=== PATIENT | male | born 1930 | race Caucasian/White ===

== ENCOUNTER 2017-08-28 11:04 | Emergency (ER) | payer MEDICARE ==
--- OUTSIDE RECORDS SUMMARY | 2017-08-28 11:18 | XMS REPORT ---
:1930 External Reference #:[id number] Author Organization [facility] Address [address] [address] Phone [phone] Care Team Providers Name Role Phone Lance Rubi MD Primary Care Physician Unavailable Payers Type Date Identification Numbers Payment Subscriber Provider Health Maintenance Effective: Policy Number: Medicare Blue Zane Phipps ([facility]) 09/03/2013 [id number] o Expires: 09/02/2014 Group Number: [id number] [address] [address] PayID: [id number] DALIA Martinez [id number] Health Maintenance Expires: Policy Number: [facility] Medicare Zane Phipps (O) 09/02/2016 [id number] Richardson Sanders Group Number: [id number] [address] [address] PayID: [id number] [place] [address] Medigap Part B Effective: 03/03/1994 Policy Number: Medicare Donald E Denman [id number] Expires: 09/03/2013 PayID: [id number] [address] [place] [address] Medigap Part B Effective: 09/03/2012 Policy Number: [facility] Zane Sanders [id number] Expires: 09/03/2013 PayID: [id number] [address] [address] DALIA Martinez [address] Medigap Part B Expires: 03/08/2008 Policy Number: [employer] Zane De Los Santos [id number] Marilyn Group Number: [id number] [address] PayID: [id number] [place] [address] Medigap Part B Effective: 03/09/2008 Policy Number: [facility] Zane Sanders [id number] Expires: 09/02/2012 PayID: [id number] [address] [address] DALIA Martinez [address] Medigap Part B Effective: 09/03/2016 Policy Number: [employer] Zane Sanders [id number] Group Number: [id number] [address] PayID: [id number] [place] [address] Problems Date Description Provider Status Onset: 06/16/2011 Benign essential hypertension Philip Lance M.D. Active Onset: 01/22/2012 Mitral valve disorder Philip Lance M.D. Active Onset: 01/22/2012 Aortic valve disorder Philip Lance M.D. Active Onset: 01/22/2012 Pure hypercholesterolemia Philip Lance M.D. Active Onset: 09/25/2012 Old myocardial infarction Philip Lance M.D. 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 Family History Date Family Member(s) Problem(s) Comments General Stroke : (age 88 Years) Father due to OR : (age 95 Years) Mother due to Hypertension Social History Type Date Description Comments Marital Status Lives With Alone Occupation Retired ETOH Use Consumes liquor once daily Smoking Patient has never smoked Recreational Drug Use Never Used Drugs Daily Caffeine Consumes on average 3 cups of regular coffee per day Daily Caffeine consumes chocolate occasionally Exercise Type/Frequency Exercises sporadically General Hx Text Allergies, Adverse Reactions, Alerts Date Description Reaction Status Severity Comments 02/20/2003 Codeine Upset Stomach active Moderate causes upset stomach 02/09/2009 Atenolol psoriasis active 04/09/2015 Cartia XT Constipation active Moderate Medications Medication Date Status Form Strength Qnty SIG Indications Ordering Provider Torsemide 08/02 Active Tablets 20mg 30tab 1/2 tab s twice a F. day (in am Casi, and qnoon) Maykel Blood Pressure 11/27 Active Misc 1unit for upper Philip Monitor s arm. F. Inflate dispense 1 Casi as Maykel directed Potassium Chloride 10/27 Active Tablets 20Meq 45tab 1 tablet Philip ER s every F. other day Maykel Lance Carvedilol 03/29 Active Tablets 3.125mg 90tab 1/2 tab by s mouth F. twice a eFrminuser, day Cheli.DAiram Fish Oil OTC 07/30 Active Capsules 1000mg [address] Jahaira Lance M.D. Tylenol 8 Hour 08/17 Active Tablets 500mg 1tabs 1 to 2 po ER qhs prn Jahaira Lance M.D. Aspirin 81 Active Tablets 81mg [address] Ordering Provider Clopidogrel Active Tablets 75mg 90tab 1 by mouth Valerie Bisulfate s every day Maykel Grant Multi Vitamin Active Tablets 1 po qd Unknown Daily Atorvastatin Active Tablets 10mg 45tab /2 by Philip Calcium s mouth F. every day Maykel Lance Metformin HCL Active Tablets 500mg 1 by mouth Unknown 0000 twice a day Amlodipine Active Tablets 2.5mg 270ta 1 tablet Philip Besylate bs daily F. (hold as Casi, Maykel ) Furosemide 08/02 Hx Tablets 20mg 1 tab by mouth as F. - directed Mauser, 08/02 as needed M.D. for weight of 186lbs or more Furosemide 01/30 Hx Tablets 20mg 30tab 1 tab by s mouth as F. - directed Mauser, 08/02 as needed M.D. for weight of 186lbs or more Coq10 07/04 Hx Capsules 200mg 90cap 1 by mouth E78.5 Qutaybeh s every day S. - ( pt does Nicoleydah 08/13 not take) , .D. Aldactone 06/29 Hx Tablets 25mg 90tab 1 by mouth s every day F. - Mauser, 11/03 M.D. Eplerenone 03/29 Hx Tablets 25mg 100ta 1 by mouth bs every day F. - Mauser, 06/29 M.D. Diltiazem CD 03/10 Hx Caps ER 120mg 200ca 1 by mouth 24HR ps twice a F. - day user, 03/29 (stopped M.D. taking 03/19/15) Spironolactone 03/01 Hx Tablets 25mg 30tab 1 by mouth s every day F. - Mauser, 03/29 M.D. Diltiazem HCL ER 01/04 Hx Caps ER 120mg 100ca 1 cap po 24HR ps daily - F. - decreased Mauser, 03/1001/28/15 M.D. Lipitor 07/22 Hx Tablets 10mg 90tab 1 by mouth s every F. - night at Mauser, 07/27 bedtime M.D. Eplerenone 06/10 Hx Tablets 25mg 100ta 1 tablet bs po daily F. - Mauser, 03/01 M.D. Oxygen 03/29 Hx Misc Discontinu 799.02 e 2 l nc F. - at bedtime Mauser, 01/27 M.D. Eplerenone 01/19 Hx Tablets 25mg 30tab take 09/04 s tablet by F. - mouth Mauser, 06/10 daily M.D. replaces hctz Klor-Con M20 01/08 Hx Tablets 20Meq 30tab 1 tab by ER s mouth on F. - odd days Mauser, 04/03 M.D. /2014 Oxygen 12/31 Hx Misc 2L NC use 799.02 Overnight nightly [place], - with nasal M.D. 03/29 cannula secondary to hypoxemia >19 minutes oxygen saturation <90% during sleep, lowest 81% Hydrochlorothiazid 12/31 Hx Tablets 25mg 30tab Take 1 tab 401.1 s po daily . - user, 01/19.D. Carvedilol 12/15 Hx Tablets 3.125mg 180ta take 1 tab 786.05 bs by mouth F. - twice a Mauser, 01/27 day M.D. Diltiazem CD 11/20 Hx Caps ER 120mg 100ca 1 by mouth 24HR ps every day F. - Mauser, 01/04.D. Diltiazem CD 06/25 Hx Caps ER 120mg 200ca 2 po qd 24HR ps . - Mauser, 11/20.D. Crestor 09/25 Hx Tablets 5mg 45tab 1 by mouth s every day F. - on emmie, . . Crestor 07/15 Hx Tablets 5mg 30tab 1 po qd s F. - Mauser, 09/25.D. Crestor 07/02 Hx Tablets 20mg 30tab 1 po qd s F. - Mauser, 07/15.D. Diovan 01/21 Hx Tablets 80mg 30tab 1 po qd s F. - Mauser, 01/21.. Diovan 01/21 Hx Tablets 80mg 100ta 1/2 po qd bs F. - Mauser, 06/12.. Aldactone 09/14 Hx Tablets 25mg 45tab 1/2 po s qd(on F. - emmie, 12/3111/21/13) .D. Diltiazem CD 08/25 Hx Caps ER 120mg 270ca 3 po qd 24HR ps F. - Mauser, 06/25.D. Diovan 08/09 Hx Tablets 80mg 30tab 1 po qd s F. - Mauser, 01/21 M.D. Altace 06/21 Hx Capsules 5mg 30cap 1 po qd s F. - Mauser, 08/09 M.D. Diltiazem CD 06/07 Hx Caps ER 120mg 200ca 2 po qd 24HR ps F. - Mauser, 08/25 M.D. Diovan 05/16 Hx Tablets 80mg 90tab 1 po qd s F. - Mauser, 06/21 M.D. Norvasc 05/05 Hx Tablets 2.5mg 90tab 1 po qd s F. - Mauser, 06/07 M.D. Crestor 05/05 Hx Tablets 10mg 45tab / po qd s F. - Mauser, 07/02 M.D. Altace 04/25 Hx Capsules 5mg 30cap 1 po qd s F. - Mauser, 05/16 M.D. Crestor 08/18 Hx Tablets 10mg 30tab 1 po qd s F. - Mauser, 05/05 M.D. [facility] 01/26 Hx Tablets 10mg 90tab 09/06 tab s qd(2.5mg) F. - Mauser, 05/05 M.D. Plavix 09/06 Hx Tablets 75mg 1 po qod untial F. - 09/18/09 Mauser, 05/05 and M.D. discontinu e Lipitor 02/09 Hx Tablets 20mg 90tab one tab po s qhs F. - Mauser, 08/18 M.D. Norvasc 02/09 Hx Tablets 5mg 180ta 2 po qd bs F. - Mauser, 01/26 M.D. Norvasc 01/26 Hx Tablets 5mg 90tab 1 po qd s F. - Mauser, 02/09 M.D. Norvasc 11/27 Hx Tablets 2.5mg 30tab 1 po qd s F. - Mauser, 11/27 M.D. Vitamin 11/27 Hx one po qd F. - Mauser, 11/15 M.D. /2014 Altace 11/27 Hx Capsules 10mg 30cap /2 by s mouth F. - every Mauser, 04/25 day(5 mg) M.D. /2010 Norvasc 11/27 Hx Tablets 2.5mg 180ta 2 po qd bs F. - Mauser, 01/26 M.D. Atenolol 11/27 Hx Tablets 25mg 1 po qod until F. - 12/15/08 Mauser, 12/25 and then M.D. /2008 discontinu e Altace 08/07 Hx Capsules 2.5mg 90cap 1 po qd s F. - Mauser, 11/27 M.D. Plavix 05/22 Hx Tablets 75mg 30tab 1 PO qd s F. - Mauser, 09/06 M.D. Altace 05/22 Hx Capsules 2.5mg 90cap 1 po qd s F. - Mauser, 05/25 M.D. Nitro-Dur 05/13 Hx Patches 0.2mg/HR 30uni 1 patch qd 24HR ts F. - Mauser, 05/22 on .D. in the am, off in the pm Altace 01/09 Hx Capsules 10mg 90cap 1 po qd s F. - Mauser, 05/22 M.D. Norvasc 01/09 Hx Tablets 2.5mg 90tab 1 po qd s F. - Mauser, 08/07 M.D. Lipitor 11/26 Hx Tablets 80mg 90tab 1 po qhs s F. - Mauser, 02/09 M.D. /2008 Lipitor 01/15 Hx Tablets 40mg 30tab 1 PO qd s F. - Mauser, 11/26 M.D. /2008 Zetia 01/15 Hx Tablets 10mg 90tab 1 po qd Jahaira Lance, 09/27 M.D. Lipitor 11/13 Hx Tablets 80mg 90tab 1 po qd Jahaira Lance, 01/15 M.D. Norvasc 07/12 Hx Tablets 10mg 1 po qd Jahaira Lance, 07/12 M.D. Norvasc 07/12 Hx Tablets 5mg 90tab 1 po qd Jahaira Lance, 01/09 M.D. Atenolol 07/12 Hx Tablets 25mg 180ta 1 po qd Jahaira Lance, 11/27 M.D. Aldactone 06/14 Hx Tablets 25mg 90tab 1 po qd Jahaira Lance, 05/25 M.D. KCL 06/14 Hx Tablets 20Meq 60tab 2 po qd Jahaira Lance, 05/25 M.D. KCL 12/06 Hx Tablets 20Meq 180ta 2 po qd Jahaira Lance, 06/14 M.D. KCL 11/13 Hx Tablets 40meq 1 po bid Jahaira Lance, 12/06 M.D. Lipitor 09/22 Hx Tablets 40mg 90tab 1 po qd Jahaira Lance, 11/13 M.D. Vytorin 07/18 Hx Tablets 10mg;40 mg 90tab 1 po qd Jahaira Lance, 09/22 M.D. KCL 06/20 Hx Tablets 40Meq 180ta 1 po qd Jahaira Lance, 11/13 M.D. Lipitor 05/05 Hx Tablets 80mg 30tab 1 po qd s Jahaira Lance, 07/18 M.D. KCL 05/05 Hx Tablets 20Meq 30tab one po qd s F. - Mauser, 06/20 M.D. /2004 Triamterene & 10/15 Hx Capsules 25mg;37.5 90cap 1 po qd HCTZ /2003 mg s F. - Ericr, 07/12 M.D. /2005 HCTZ 02/20 Hx 25mg 30uni ts Jahaira Lance, 02/14 M.D. Aspirin - Buffered 02/19 Hx Tablets 325mg 100ta 09/04 po qd bs FAiram Lance, 10/29 M.D. /2013 Altace 02/19 Hx 20mg 30uni one qd migdalia Lance, 01/09 M.D. /2007 Atenolol 02/19 Hx Tablets 25mg 90tab take one s tablet F. - daily Casi, 07/12 M.D. /2005 HCTZ 02/19 Hx 25mg 90uni 1 PO qd FAiram Lance, 02/20 M.D. Norvasc 02/19 Hx Tablets 5mg 30tab one qd s FAiram - Casi, 07/12 M.D. Lipitor 02/19 Hx Tablets 40mg 30tab one qd s FAiram Lance, 05/05 M.D. Diuretic pt unsure 02/19 Hx 37.5/25 30uni one qd Philip name of /2002 migdalia Lance, 04/22 M.D. /2003 Tylenol 8 Hour Hx Tablets 650mg 1tabs prn Unknown /0000 ER - 08/17 Vitamin D-1000 Hx Tablets 1000Unit 90tab 1 po qd Unknown /0000 s - 08/31 ` Hx Ointment 0.05% 50gm apply tid Unknown /0000 for - psoriasis 06/25 prn /2012 Brilinta Hx Tablets 90mg 60tab 1 tab by Other / s mouth Ordering - twice a Provider /2013 Gabapentin Hx Capsules 100mg 90cap 1 po qhs Unknown /0000 s prn - 04/03 Cartia XT Hx Caps ER 120mg 1 cap po Unknown /0000 24HR b.i.d - 01/27 Potassium Chloride Hx Tablets 20Meq 1 tablet Philip /0000 ER every F. - other day Mauser, 10/27 M.D. Medications Administered in Office Medication Date Status Form Strength Qnty SIG Indications Ordering Provider Inj, Administered Injection Nitin S. Regadenoson, 016 Oquendo, DO 0.1 MG FACC Inj, Administered Injection Marj Gallegos, Regadenoson, 016 PA 0.1 MG Technetium TC Administered Injection Nitin S. 99M 016 Oquendo, DO Tetrofosmin, FACC Per Unit Dose Up To 40 Millicuries Technetium TC Administered Injection Marj Gallegos, 99M 016 PA Tetrofosmin, Per Unit Dose Up To 40 Millicuries Vital Signs Date Vital Result Comment 08/20/2017 Height 73 inches 6'1" Weight 190.25 lb with boots Heart Rate 86 /min BP Systolic Sitting 116 mmHg LA reg cuff BP Diastolic Sitting 76 mmHg LA reg cuff BMI (Body Mass Index) 25.1 kg/m2 Ejection Fraction 40%-45% echo 06/12/17 08/02/2017 Height 73 inches 6'1" Weight 192.00 lb with shoes Heart Rate 94 /min BP Systolic Sitting 114 mmHg LA reg cuff BP Diastolic Sitting 78 mmHg LA reg cuff O2 % BldC Oximetry 94 % Sp02 at room air BMI (Body Mass Index) 25.3 kg/m2 Ejection Fraction 40%-45% echo 06/12/27 05/15/2017 Height 73 inches 6'1" Weight 191.00 lb with shoes Heart Rate 64 /min BP Systolic Sitting 166 mmHg LA reg cuff BP Diastolic Sitting 92 mmHg LA reg cuff BP Systolic Standing 160 mmHg LA reg cuff BP Diastolic Standing 88 mmHg LA reg cuff BP Systolic Lying Down 138 mmHg repeat left arm sitting. BP Diastolic Lying Down 76 mmHg repeat left arm sitting. BMI (Body Mass Index) 25.2 kg/m2 Ejection Fraction 40%-45% Florentin 12/29/16 01/30/2017 Heart Rate 74 /min BP Systolic Sitting 138 mmHg LA, regular BP Diastolic Sitting 78 mmHg LA, regular 01/26/2017 Height 69.5 inches 5'9.50" Weight 199.00 lb with shoes Heart Rate 90 /min BP Systolic Sitting 164 mmHg Lue reg cuff BP Diastolic Sitting 100 mmHg Lue reg cuff BP Systolic Standing 170 mmHg Lue reg cuf BP Diastolic Standing 110 mmHg Lue reg cuf Respiratory Rate 17 /min BMI (Body Mass Index) 29.0 kg/m2 Ejection Fraction 55-60% date 07/14/2016 ECHO 01/09/2017 Height 69.5 inches 5'9.50" Weight 196.00 lb w/shoes Heart Rate 76 /min BP Systolic Sitting 134 mmHg LA reg cuff BP Diastolic Sitting 60 mmHg LA reg cuff BMI (Body Mass Index) 28.5 kg/m2 Ejection Fraction 40-45% Florentin 12/29/16 12/07/2016 Height 69.5 inches 5'9.50" Heart Rate 82 /min 76 home unit BP Systolic 120 mmHg LA, reg BP Diastolic 74 mmHg LA, reg BP Systolic Sitting 128 mmHg Ra, reg BP Diastolic Sitting 76 mmHg Ra, reg BP Systolic Recheck 128 mmHg home unit BP Diastolic Recheck 68 mmHg home unit 11/27/2016 Height 69.5 inches 5'9.50" Weight 188.75 lb w/shoes Heart Rate 72 /min 69 BP Systolic 148 mmHg home unit BP Diastolic 87 mmHg home unit BP Systolic Sitting 120 mmHg LA reg cuff BP Diastolic Sitting 74 mmHg LA reg cuff BP Systolic Standing 140 mmHg LA reg cuff BP Diastolic Standing 70 mmHg LA reg cuff BMI (Body Mass Index) 27.5 kg/m2 Ejection Fraction 55-60% Echo 07/14/16 07/19/2016 Height 69.5 inches 5'9.50" Weight 194.00 lb with shoes Heart Rate 68 /min BP Systolic Sitting 156 mmHg LA reg cuff BP Diastolic Sitting 86 mmHg LA reg cuff BMI (Body Mass Index) 28.2 kg/m2 Ejection Fraction 55%-60% echo 07/14/16 07/04/2016 Height 69.5 inches 5'9.50" Weight 196.00 lb Heart Rate 64 /min reg BP Systolic Sitting 180 mmHg after relaxation BP Diastolic Sitting 84 mmHg after relaxation BMI (Body Mass Index) 28.5 kg/m2 Ejection Fraction 35% stress test 12/31/15 02/07/2016 Height 69.5 inches 5'9.50" Weight 197.50 lb with shoes Heart Rate 68 /min BP Systolic Sitting 128 mmHg Ra reg cuff BP Diastolic Sitting 62 mmHg Ra reg cuff BP Systolic Standing 126 mmHg Ra reg cuff BP Diastolic Standing 64 mmHg Ra reg cuff BMI (Body Mass Index) 28.7 kg/m2 Ejection Fraction 45- 50% echo 12/13/2015 Heart Rate 64 /min BP Systolic 142 mmHg Ra, regular, sit BP Diastolic 74 mmHg Ra, regular, sit BP Systolic Sitting 148 mmHg LA, regular BP Diastolic Sitting 70 mmHg LA, regular BP Systolic Standing 138 mmHg Ra, regular BP Diastolic Standing 76 mmHg Ra, regular BP Systolic Lying Down 143 mmHg Ra, regular, home unit BP Diastolic Lying Down 79 mmHg Ra, regular, home unit 12/06/2015 Height 69.5 inches 5'9.50" Weight 208.38 lb with shoes Heart Rate 66 /min BP Systolic Sitting 122 mmHg LA reg cuff BP Diastolic Sitting 68 mmHg LA reg cuff BP Systolic Standing 134 mmHg LA reg cuff BP Diastolic Standing 72 mmHg LA reg cuff Respiratory Rate 16 /min BMI (Body Mass Index) 30.3 kg/m2 Ejection Fraction 45-50% 11/15/15 11/04/2015 Height 69.5 inches 5'9.50" Weight 207.00 lb with shoes Heart Rate 64 /min BP Systolic Sitting 118 mmHg LA reg cuff BP Diastolic Sitting 74 mmHg LA reg cuff Respiratory Rate 16 /min BMI (Body Mass Index) 30.1 kg/m2 Ejection Fraction 55-60% date 01/21/15 ECHO 07/27/2015 Height 69.5 inches 5'9.50" Weight 199.00 lb Heart Rate 76 /min BP Systolic Sitting 124 mmHg BP Diastolic Sitting 76 mmHg Respiratory Rate 20 /min BMI (Body Mass Index) 29.0 kg/m2 05/03/2015 Height 69.5 inches 5'9.50" Weight 199.50 lb Heart Rate 64 /min BP Systolic Sitting 140 mmHg BP Diastolic Sitting 78 mmHg Respiratory Rate 24 /min BMI (Body Mass Index) 29.0 kg/m2 04/28/2015 Height 69.5 inches 5'9.50" Weight 199.50 lb w/ shoes Heart Rate 66 /min BP Systolic Sitting 154 mmHg LA, reg BP Diastolic Sitting 80 mmHg LA, reg BP Systolic Standing 142 mmHg la sit repeat BP Diastolic Standing 78 mmHg la sit repeat BMI (Body Mass Index) 29.0 kg/m2 Ejection Fraction 55-60% 01/21/15 ECHO 04/09/2015 Height 69.5 inches 5'9.50" Weight 198.00 lb Heart Rate 64 /min BP Systolic Sitting 122 mmHg BP Diastolic Sitting 64 mmHg Respiratory Rate 16 /min BMI (Body Mass Index) 28.8 kg/m2 04/02/2015 Height 69.5 inches 5'9.50" Weight 198.00 lb Heart Rate 68 /min BP Systolic 144 mmHg LA Reg BP Diastolic 80 mmHg LA Reg BMI (Body Mass Index) 28.8 kg/m2 03/29/2015 Height 69.5 inches 5'9.50" Weight 199.75 lb Heart Rate 78 /min BP Systolic 154 mmHg Ra, sit BP Diastolic 96 mmHg Ra, sit BP Systolic Sitting 158 mmHg LA BP Diastolic Sitting 100 mmHg LA BP Systolic Standing 168 mmHg LA BP Diastolic Standing 108 mmHg LA BMI (Body Mass Index) 29.1 kg/m2 03/10/2015 Height 69.5 inches 5'9.50" Weight 201.00 lb w/ shoes Heart Rate 70 /min reg BP Systolic Sitting 134 mmHg Lue, reg cuff BP Diastolic Sitting 86 mmHg Lue, reg cuff Respiratory Rate 18 /min BMI (Body Mass Index) 29.3 kg/m2 Ejection Fraction 55-60% as of echo 01/28/2015 Height 69.5 inches 5'9.50" Weight 200.25 lb with shoes Heart Rate 70 /min BP Systolic Sitting 130 mmHg LA reg ucff BP Diastolic Sitting 70 mmHg LA reg ucff Respiratory Rate 16 /min BMI (Body Mass Index) 29.1 kg/m2 Ejection Fraction 55-60% date 01/21/15 01/11/2015 Height 69.5 inches 5'9.50" Weight 202.00 lb w/ shoes Heart Rate 58 /min BP Systolic Sitting 168 mmHg LA, reg BP Diastolic Sitting 90 mmHg LA, reg BP Systolic Standing 154 mmHg LA, reg BP Diastolic Standing 90 mmHg LA, reg BMI (Body Mass Index) 29.4 kg/m2 Ejection Fraction 55-60% 09/04/14 echo 11/16/2014 Height 69.5 inches 5'9.50" Weight 206.00 lb Heart Rate 60 /min BP Systolic Sitting 166 mmHg LA, reg BP Diastolic Sitting 88 mmHg LA, reg BMI (Body Mass Index) 30.0 kg/m2 08/31/2014 Height 69.5 inches 5'9.50" Weight 201.00 lb Heart Rate 60 /min BP Systolic Sitting 150 mmHg BP Diastolic Sitting 70 mmHg Pain Level 0 BMI (Body Mass Index) 29.3 kg/m2 06/10/2014 Height 69.5 inches 5'9.50" Weight 203.00 lb w/work boots on Heart Rate 62 /min BP Systolic 148 mmHg repeat sitting BP Diastolic 76 mmHg repeat sitting BP Systolic Sitting 170 mmHg LA reg cuff BP Diastolic Sitting 78 mmHg LA reg cuff Respiratory Rate 18 /min BMI (Body Mass Index) 29.5 kg/m2 02/10/2014 Height 69.5 inches 5'9.50" Weight 201.00 lb Heart Rate 72 /min BP Systolic Sitting 156 mmHg LA reg cuff BP Diastolic Sitting 90 mmHg LA reg cuff BP Systolic Recheck 134 mmHg LA reg cuff BP Diastolic Recheck 84 mmHg LA reg cuff Respiratory Rate 16 /min BMI (Body Mass Index) 29.3 kg/m2 12/31/2013 Height 69.5 inches 5'9.50" Weight 202.00 lb Heart Rate 60 /min BP Systolic Sitting 142 mmHg BP Diastolic Sitting 76 mmHg BMI (Body Mass Index) 29.4 kg/m2 12/15/2013 Height 69.5 inches 5'9.50" Weight 197.75 lb BP Systolic 72 mmHg BP Systolic Sitting 152 mmHg Ra BP Diastolic Sitting 90 mmHg Ra BP Systolic Standing 148 mmHg Ra BP Diastolic Standing 90 mmHg Ra BMI (Body Mass Index) 28.8 kg/m2 10/29/2013 Height 73 inches 6'1" Weight 200.00 lb Heart Rate 88 /min BP Systolic Sitting 132 mmHg BP Diastolic Sitting 64 mmHg BMI (Body Mass Index) 26.4 kg/m2 08/04/2013 BP Systolic 154 mmHg BP Diastolic 92 mmHg 07/11/2013 Heart Rate 74 /min 76 on home unit BP Systolic 144 mmHg 145/79 on home unit BP Diastolic 78 mmHg 145/79 on home unit 06/25/2013 Height 73 inches 6'1" Weight 206.00 lb Heart Rate 68 /min BP Systolic Sitting 126 mmHg pulse 62 BP Diastolic Sitting 66 mmHg pulse 62 BP Systolic Standing 132 mmHg pulse 76 BP Diastolic Standing 70 mmHg pulse 76 BP Systolic Lying Down 126 mmHg pulse 56 BP Diastolic Lying Down 70 mmHg pulse 56 BMI (Body Mass Index) 27.2 kg/m2 11/04/2012 Height 73 inches 6'1" Weight 213.00 lb with coat and boots Heart Rate 82 /min BP Systolic 134 mmHg after walking in BP Diastolic 72 mmHg after walking in BP Systolic Sitting 138 mmHg after sitting 5 mins BP Diastolic Sitting 66 mmHg after sitting 5 mins BMI (Body Mass Index) 28.1 kg/m2 09/25/2012 Height 73 inches 6'1" Weight 207.00 lb Heart Rate 60 /min BP Systolic 132 mmHg BP Diastolic 64 mmHg Respiratory Rate 16 /min BMI (Body Mass Index) 27.3 kg/m2 06/12/2012 Height 73 inches 6'1" Weight 207.00 lb Heart Rate 64 /min BP Systolic 108 mmHg BP Diastolic 60 mmHg BMI (Body Mass Index) 27.3 kg/m2 02/06/2012 Height 73 inches 6'1" Weight 208.38 lb Heart Rate 76 /min Regular BP Systolic Sitting 118 mmHg BP Diastolic Sitting 64 mmHg BMI (Body Mass Index) 27.5 kg/m2 01/22/2012 Height 73 inches 6'1" Weight 207.00 lb Heart Rate 69 /min BP Systolic 110 mmHg BP Diastolic 60 mmHg Respiratory Rate 16 /min BMI (Body Mass Index) 27.3 kg/m2 08/17/2011 Height 73 inches 6'1" Weight 204.00 lb Heart Rate 82 /min BP Systolic Sitting 152 mmHg BP Diastolic Sitting 78 mmHg BMI (Body Mass Index) 26.9 kg/m2 05/05/2011 Height 73 inches 6'1" Weight 204.00 lb Heart Rate 58 /min BP Systolic Lying Down 152 mmHg BP Diastolic Lying Down 68 mmHg Respiratory Rate 20 /min BMI (Body Mass Index) 26.9 kg/m2 07/19/2010 Weight 206.00 lb Heart Rate 78 /min BP Systolic Sitting 130 mmHg 09/06/2009 Weight 209.00 lb Heart Rate 84 /min BP Systolic Sitting 120 mmHg BP Diastolic Sitting 64 mmHg Respiratory Rate 18 /min 05/07/2009 Height 73 inches 6'1" Weight 203.00 lb Heart Rate 72 /min BP Systolic Sitting 110 mmHg L BP Diastolic Sitting 60 mmHg L BMI (Body Mass Index) 26.8 kg/m2 03/12/2009 Height 73 inches 6'1" Weight 206.00 lb Heart Rate 78 /min BP Systolic Sitting 116 mmHg BP Diastolic Sitting 64 mmHg BMI (Body Mass Index) 27.2 kg/m2 02/09/2009 Height 73 inches 6'1" Weight 209.00 lb Heart Rate 68 /min BP Systolic Sitting 140 mmHg BP Diastolic Sitting 90 mmHg BMI (Body Mass Index) 27.6 kg/m2 12/25/2008 Height 73 inches 6'1" Weight 215.00 lb Heart Rate 80 /min reg BP Systolic Sitting 120 mmHg BP Diastolic Sitting 60 mmHg BMI (Body Mass Index) 28.4 kg/m2 11/27/2008 Height 73 inches 6'1" Weight 217.00 lb Heart Rate 53 /min BP Systolic Sitting 150 mmHg L home unit 151/85 BP Diastolic Sitting 79 mmHg L home unit 151/85 BMI (Body Mass Index) 28.6 kg/m2 08/07/2008 Height 73 inches 6'1" Weight 211.00 lb Heart Rate 60 /min BP Systolic Sitting 130 mmHg L BP Diastolic Sitting 70 mmHg L BMI (Body Mass Index) 27.8 kg/m2 05/22/2008 Height 73 inches 6'1" Weight 205.00 lb Heart Rate 62 /min BP Systolic Sitting 100 mmHg L BP Diastolic Sitting 60 mmHg L BMI (Body Mass Index) 27.0 kg/m2 2008 Height 73 inches 6'1" Weight 205.00 lb Heart Rate 53 /min BP Systolic Sitting 130 mmHg BP Diastolic Sitting 70 mmHg BP Systolic Standing 112 mmHg BP Diastolic Standing 66 mmHg BMI (Body Mass Index) 27.0 kg/m2 01/10/2008 Height 73 inches 6'1" Weight 207.00 lb Heart Rate 51 /min BP Systolic Sitting 104 mmHg BP Diastolic Sitting 60 mmHg Respiratory Rate 16 /min BMI (Body Mass Index) 27.3 kg/m2 12/31/2006 Height 73 inches 6'1" Weight 201.00 lb Heart Rate 62 /min BP Systolic Sitting 110 mmHg BP Diastolic Sitting 60 mmHg BP Systolic Standing 110 mmHg BP Diastolic Standing 60 mmHg BMI (Body Mass Index) 26.5 kg/m2 08/15/2006 Height 73 inches 6'1" Weight 196.00 lb Heart Rate 50 /min BP Systolic Sitting 132 mmHg BP Diastolic Sitting 70 mmHg BP Systolic Standing 120 mmHg BP Diastolic Standing 70 mmHg BMI (Body Mass Index) 25.9 kg/m2 07/12/2006 Height 73 inches 6'1" Weight 186.00 lb Heart Rate 64 /min Reg BP Systolic Sitting 100 mmHg BP Diastolic Sitting 70 mmHg BP Systolic Standing 110 mmHg BP Diastolic Standing 74 mmHg BMI (Body Mass Index) 24.5 kg/m2 06/13/2006 Height 73 inches 6'1" Weight 196.00 lb Heart Rate 48 /min BP Systolic Sitting 124 mmHg R BP Diastolic Sitting 60 mmHg R BP Systolic Standing 130 mmHg R BP Diastolic Standing 70 mmHg R BMI (Body Mass Index) 25.9 kg/m2 04/13/2005 Height 73 inches 6'1" Weight 197.00 lb Heart Rate 50 /min BP Systolic Sitting 104 mmHg BP Diastolic Sitting 56 mmHg BP Systolic Standing 100 mmHg BP Diastolic Standing 60 mmHg BMI (Body Mass Index) 26.0 kg/m2 04/22/2004 Height 73 inches 6'1" Weight 203.00 lb Heart Rate 57 /min BP Systolic Sitting 136 mmHg BP Diastolic Sitting 64 mmHg BP Systolic Standing 124 mmHg BP Diastolic Standing 60 mmHg BMI (Body Mass Index) 26.8 kg/m2 02/20/2003 Height 63 inches Weight 198.00 lb Heart Rate 60 /min BP Systolic Sitting 130 mmHg BP Diastolic Sitting 70 mmHg BP Systolic Standing 120 mmHg BP Diastolic Standing 70 mmHg BMI (Body Mass Index) 35.1 kg/m2 Results Test Date Test Result H/L Range Note CBC Auto Diff 08/02/2017 White Blood Count 9.8 10^3/uL 3.5-10.8 Red Blood Count 4.57 10^6/uL 4.0-5.4 Hemoglobin 14.5 g/dL 14.0-18.0 Hematocrit 44 % 42-52 Mean Corpuscular Volume 95 fL High 80-94 Mean Corpuscular Hemoglobin 32 pg High 27-31 Mean Corpuscular HGB Conc 33 g/dL 31-36 Red Cell Distribution Width 14 % 10.5-15 Platelet Count 201 10^3/uL 150-450 Mean Platelet Volume 10 um3 7.4-10.4 Abs Neutrophils 7.6 10^3/uL 1.5-7.7 Abs Lymphocytes 1.2 10^3/uL 1.0-4.8 Abs Monocytes 0.9 10^3/uL High 0-0.8 Abs Eosinophils 0.1 10^3/uL 0-0.6 Abs Basophils 0.1 10^3/uL 0-0.2 Abs Nucleated RBC 0 10^3/uL Granulocyte % 77.8 % 38-83 Lymphocyte % 12.3 % Low 25-47 Monocyte % 8.7 % 1-9 Eosinophil % 0.7 % 0-6 Basophil % 0.5 % 0-2 Nucleated Red Blood Cells % 0 Lipid Panel - [facility] 08/02/2017 Creatine Kinase(CK) 186 U/L 10-223 Comp Metabolic Panel 08/02/2017 Sodium 144 mmol/L 133-145 Potassium 3.8 mmol/L 3.5-5.0 Chloride 106 mmol/L 101-111 Co2 Carbon Dioxide 25 mmol/L 22-32 Anion Gap 13 mmol/L High 2-11 Glucose 114 mg/dL High 70-100 Blood Urea Nitrogen 39 mg/dL High 6-24 Creatinine 1.28 mg/dL High 0.67-1.17 BUN/Creatinine Ratio 30.5 High 8-20 Calcium 9.9 mg/dL 8.6-10.3 Total Protein 6.9 g/dL 6.4-8.9 Albumin 4.3 g/dL 3.2-5.2 Globulin 2.6 g/dL 2-4 Albumin/Globulin Ratio 1.7 1-3 Total Bilirubin 0.80 mg/dL 0.2-1.0 Alkaline Phosphatase 97 U/L 34-104 Alt 67 U/L High 7-52 Ast 36 U/L 13-39 Egfr Non- 53.0 >60 Egfr 68.2 >60 1 Lipid Profile (Trig/Chol/HDL) 08/02/2017 Triglycerides 145 mg/dL 2 Cholesterol 143 mg/dL 3 HDL Cholesterol 43.6 mg/dL 4 LDL Cholesterol 70 mg/dL 5 Laboratory test finding 08/02/2017 B-Type Natriuretic Peptide BNP 1946 pg/ mL High 6 Magnesium 2.2 mg/dL 1.9-2.7 TSH (Thyroid Stim Horm) 3.06 mcIU/mL 0.34-5.60 Laboratory test finding 01/30/2017 B-Type Natriuretic 621 pg/mL High 7 Peptide BNP Basic Metabolic Panel 01/30/2017 Sodium 139 mmol/L 133-145 Potassium 4.1 mmol/L 3.5-5.0 Chloride 104 mmol/L 101-111 Co2 Carbon Dioxide 28 mmol/L 22-32 Anion Gap 7 mmol/L 2-11 Glucose 131 mg/dL High 70-100 Blood Urea Nitrogen 21 mg/dL 6-24 Creatinine 1.05 mg/dL 0.67-1.17 BUN/Creatinine Ratio 20.0 8-20 Calcium 9.1 mg/dL 8.6-10.3 Egfr Non- 66.8 >60 Egfr 85.9 >60 8 Laboratory test finding 01/30/2017 Magnesium 1.9 mg/dL 1.9-2.7 9 CBC Auto Diff 01/30/2017 White Blood Count 8.4 10^3/uL 3.5-10.8 Red Blood Count 4.36 10^6/uL 4.0-5.4 Hemoglobin 13.4 g/dL Low 14.0-18.0 Hematocrit 41 % Low 42-52 Mean Corpuscular Volume 94 fL 80-94 Mean Corpuscular Hemoglobin 31 pg 27-31 Mean Corpuscular HGB Conc 33 g/dL 31-36 Red Cell Distribution Width 14 % 10.5-15 Platelet Count 205 10^3/uL 150-450 Mean Platelet Volume 9 um3 7.4-10.4 Abs Neutrophils 5.7 10^3/uL 1.5-7.7 Abs Lymphocytes 1.5 10^3/uL 1.0-4.8 Abs Monocytes 0.9 10^3/uL High 0-0.8 Abs Eosinophils 0.2 10^3/uL 0-0.6 Abs Basophils 0.1 10^3/uL 0-0.2 Abs Nucleated RBC 0 10^3/uL Granulocyte % 67.9 % 38-83 Lymphocyte % 17.8 % Low 25-47 Monocyte % 11.1 % High 1-9 Eosinophil % 2.0 % 0-6 Basophil % 1.2 % 0-2 Nucleated Red Blood Cells % 0 Lipid Panel - [facility] 02/08/2016 Creatine Kinase(CK) 96 U/L 10-223 10 Comp Metabolic Panel 02/08/2016 Sodium 139 mmol/L 133-145 Potassium 4.0 mmol/L 3.5-5.0 Chloride 103 mmol/L 101-111 Co2 Carbon Dioxide 29 mmol/L 22-32 Anion Gap 7 mmol/L 2-11 Glucose 114 mg/dL High 70-100 Blood Urea Nitrogen 17 mg/dL 6-24 Creatinine 1.02 mg/dL 0.67-1.17 BUN/Creatinine Ratio 16.7 8-20 Calcium 9.1 mg/dL 8.6-10.3 Total Protein 7.0 g/dL 6.4-8.9 Albumin 4.1 g/dL 3.2-5.2 Globulin 2.9 g/dL 2-4 Albumin/Globulin Ratio 1.4 1-3 Total Bilirubin 0.60 mg/dL 0.2-1.0 Alkaline Phosphatase 66 U/L 34-104 Alt 11 U/L 7-52 Ast 15 U/L 13-39 Egfr Non- 69.2 >60 Egfr 89.1 >60 11 Lipid Profile (Trig/Chol/HDL) 02/08/2016 Triglycerides 131 mg/dL 12 Cholesterol 146 mg/dL 13 HDL Cholesterol 44.2 mg/dL 14 LDL Cholesterol 76 mg/dL 15 Laboratory test finding 04/16/2015 Blood Urea Nitrogen BUN 22 mg/dL 6-24 TSH (Thyroid Stim Horm) 3.25 ?IU/mL 0.34-5.60 Creatinine 04/16/2015 Creatinine 1.15 mg/dL 0.67-1.17 Egfr Non- 60.3 >60 Egfr 77.5 >60 16 CBC Auto Diff 01/12/2015 White Blood Count 6.9 10^3/uL 4.8-10.8 Red Blood Count 4.19 10^6/uL 4.0-5.4 Hemoglobin 13.9 g/dL Low 14.0-18.0 Hematocrit 40 % Low 42-52 Mean Corpuscular Volume 96 fL High 80-94 Mean Corpuscular Hemoglobin 33 pg High 27-31 Mean Corpuscular HGB Conc 35 g/dL 31-36 Red Cell Distribution Width 13 % 10.5-15 Platelet Count 164 10^3/uL 150-450 Mean Platelet Volume 8 um3 7.4-10.4 Abs Neutrophils 5.0 10^3/uL 1.5-7.7 Abs Lymphocytes 1.0 10^3/uL 1.0-4.8 Abs Monocytes 0.7 10^3/uL 0-0.8 Abs Eosinophils 0.1 10^3/uL 0-0.6 Abs Basophils 0 10^3/uL 0-0.2 Abs Nucleated RBC 0 10^3/uL Granulocyte % 73.5 % 38-83 Lymphocyte % 14.5 % Low 25-47 Monocyte % 10.6 % High 1-9 Eosinophil % 0.8 % 0-6 Basophil % 0.6 % 0-2 Nucleated Red Blood Cells % 0 Comp Metabolic Panel 01/12/2015 Sodium 136 mmol/L 133-145 Potassium 4.2 mmol/L 3.5-5.0 Chloride 105 mmol/L 101-111 Co2 Carbon Dioxide 22 mmol/L 22-32 Anion Gap 9 mmol/L 2-11 Glucose 261 mg/dL High 70-100 Blood Urea Nitrogen 23 mg/dL 6-24 Creatinine 1.08 mg/dL 0.67-1.17 BUN/Creatinine Ratio 21.3 High 8-20 Calcium 9.0 mg/dL 8.6-10.3 Total Protein 6.5 g/dL 6.4-8.9 Albumin 3.9 g/dL 3.2-5.2 Globulin 2.6 g/dL 2-4 Albumin/Globulin Ratio 1.5 1-3 Total Bilirubin 0.50 mg/dL 0.2-1.0 Alkaline Phosphatase 67 U/L 34-104 Alt 30 U/L 7-52 Ast 20 U/L 13-39 Egfr Non- 65.0 >60 Egfr 83.6 >60 17 Vitamin B12 And Folate Serum 01/12/2015 Vitamin B12 546 pg/mL 180-914 18 Folic Acid (Folate) > 20.00 ng/mL >3.99 Laboratory test finding 01/12/2015 Creatine Kinase(CK) 102 U/L 10-223 B-Type Natriuretic Peptide BNP 176 pg/mL 19 Magnesium 2.0 mg/dL 1.9-2.7 Order 09/04/2014 Echocardiogram <pending> Basic Metabolic Panel 07/20/2014 Sodium 134 mmol/L 133-145 Potassium 4.3 mmol/L 3.5-5.0 20 Chloride 99 mmol/L Low 101-111 Co2 Carbon Dioxide 29 mmol/L 22-32 Anion Gap 6 mmol/L 2-11 Glucose 235 mg/dL High 70-100 Blood Urea Nitrogen 21 mg/dL 6-24 Creatinine 1.14 mg/dL 0.67-1.17 BUN/Creatinine Ratio 18.4 8-20 Calcium 9.1 mg/dL 8.6-10.3 Egfr Non- 61.1 >60 Egfr 78.5 >60 21 Laboratory test finding 07/06/2014 Magnesium 1.9 mg/dL 1.9-2.7 Basic Metabolic Panel 07/06/2014 Sodium 136 mmol/L 133-145 Potassium 3.7 mmol/L 3.5-5.0 Chloride 101 mmol/L 101-111 Co2 Carbon Dioxide 29 mmol/L 22-32 Anion Gap 6 mmol/L 2-11 Glucose 177 mg/dL High 70-100 Blood Urea Nitrogen 20 mg/dL 6-24 Creatinine 1.07 mg/dL 0.67-1.17 BUN/Creatinine Ratio 18.7 8-20 Calcium 9.3 mg/dL 8.6-10.3 Egfr Non- 65.7 >60 Egfr 84.5 >60 22 CBC Auto Diff 07/06/2014 White Blood Count 8.7 10^3/uL 4.8-10.8 Red Blood Count 4.31 10^6/uL 4.0-5.4 Hemoglobin 13.9 g/dL Low 14.0-18.0 Hematocrit 41 % Low 42-52 Mean Corpuscular Volume 95 fL High 80-94 Mean Corpuscular Hemoglobin 32 pg High 27-31 Mean Corpuscular HGB Conc 34 g/dL 31-36 Red Cell Distribution Width 14 % 10.5-15 Platelet Count 190 10^3/uL 150-450 Mean Platelet Volume 8 um3 7.4-10.4 Abs Neutrophils 6.4 10^3/uL 1.5-7.7 Abs Lymphocytes 1.2 10^3/uL 1.0-4.8 Abs Monocytes 0.9 10^3/uL High 0-0.8 Abs Eosinophils 0.1 10^3/uL 0-0.6 Abs Basophils 0 10^3/uL 0-0.2 Abs Nucleated RBC 0 10^3/uL Granulocyte % 73.5 % 38-83 Lymphocyte % 14.3 % Low 25-47 Monocyte % 10.5 % High 1-9 Eosinophil % 1.2 % 0-6 Basophil % 0.5 % 0-2 Nucleated Red Blood Cells % 0 Lipid Panel - [facility] 04/20/2014 Creatine Kinase 112 U/L 10-223 23, 24 Comp Metabolic Panel 04/20/2014 Sodium 139 mmol/L 133-145 23 Potassium 4.3 mmol/L 3.7-5.6 23 Chloride 104 mmol/L 101-111 23 Co2 Carbon Dioxide 30 mmol/L 22-32 23 Anion Gap 5 mmol/L 2-11 23 Glucose 137 mg/dL High 70-100 23 Blood Urea Nitrogen 16 mg/dL 6-24 23 Creatinine 1.17 mg/dL 0.67-1.17 23 BUN/Creatinine Ratio 13.7 8-20 23 Calcium 9.3 mg/dL 8.6-10.3 23 Total Protein 7.3 g/dL 6.4-8.9 23 Albumin 3.8 g/dL 3.2-5.2 23 Globulin 3.5 g/dL 2-4 23 Albumin/Globulin Ratio 1.1 1-3 23 Total Bilirubin 0.50 mg/dL 0.2-1.0 23 Alkaline Phosphatase 71 U/L 34-104 23 Alt 22 U/L 7-52 23 Ast 20 U/L 13-39 23 Egfr Non- 59.2 >60 23 Egfr 76.2 >60 23, 25 Lipid Profile (Trig/Chol/HDL) 04/20/2014 Triglycerides 169 mg/dL 23, 26 Cholesterol 169 mg/dL 23, 27 HDL Cholesterol 44.3 mg/dL 23, 28 LDL Cholesterol 91 mg/dL 23, 29 Basic Metabolic Panel 02/05/2014 Sodium 138 mmol/L 133-145 Potassium 4.1 mmol/L 3.7-5.6 Chloride 104 mmol/L 101-111 Co2 Carbon Dioxide 29 mmol/L 22-32 Anion Gap 5 mmol/L 2-11 Glucose 111 mg/dL High 70-100 Blood Urea Nitrogen 17 mg/dL 6-24 Creatinine 1.15 mg/dL 0.67-1.17 BUN/Creatinine Ratio 14.8 8-20 Calcium 9.3 mg/dL 8.6-10.3 Egfr Non- 60.6 >60 Egfr 77.9 >60 30 Basic Metabolic Panel 01/16/2014 Sodium 139 mmol/L 133-145 31 Potassium 3.5 mmol/L Low 3.7-5.6 31 Chloride 102 mmol/L 101-111 31 Co2 Carbon Dioxide 30 mmol/L 22-32 31 Anion Gap 7 mmol/L 2-11 31 Glucose 190 mg/dL High 70-100 31 Blood Urea Nitrogen 20 mg/dL 6-24 31 Creatinine 1.12 mg/dL 0.67-1.17 31 BUN/Creatinine Ratio 17.9 8-20 31 Calcium 8.7 mg/dL 8.6-10.3 31 Egfr Non- 62.5 >60 31 Egfr 80.3 >60 31, 32 Basic Metabolic Panel 01/08/2014 Sodium 138 mmol/L 133-145 Potassium 3.3 mmol/L Low 3.7-5.6 Chloride 102 mmol/L 101-111 Co2 Carbon Dioxide 29 mmol/L 22-32 Anion Gap 7 mmol/L 2-11 Glucose 126 mg/dL High 70-100 Blood Urea Nitrogen 18 mg/dL 6-24 Creatinine 1.10 mg/dL 0.67-1.17 BUN/Creatinine Ratio 16.4 8-20 Calcium 9.2 mg/dL 8.6-10.3 Egfr Non- 63.8 >60 Egfr 82.0 >60 33 Laboratory test finding 10/29/2013 B Type Natriuretic Peptide 73 pg/mL 34 Creatine Kinase 100 U/L 10-223 CBC Auto Diff 10/29/2013 White Blood Count 9.7 10^3/uL 4.8-10.8 Red Blood Count 4.42 10^6/uL 4.0-5.4 Hemoglobin 14.6 g/dL 14.0-18.0 Hematocrit 41 % Low 42-52 Mean Corpuscular Volume 94 fL 80-94 Mean Corpuscular Hemoglobin 33 pg High 27-31 Mean Corpuscular HGB Conc 35 g/dL 31-36 Red Cell Distribution Width 13 % 10.5-15 Platelet Count 212 10^3/uL 150-450 Mean Platelet Volume 9 um3 7.4-10.4 Abs Neutrophils 6.8 10^3/uL 1.5-7.7 Abs Lymphocytes 1.5 10^3/uL 1.0-4.8 Abs Monocytes 1.3 10^3/uL High 0-0.8 Abs Eosinophils 0.1 10^3/uL 0-0.6 Abs Basophils 0 10^3/uL 0-0.2 Abs Nucleated RBC 0.01 10^3/uL Granulocyte % 69.6 % 38-83 Lymphocyte % 14.9 % Low 25-47 Monocyte % 13.9 % High 1-9 Eosinophil % 1.1 % 0-6 Basophil % 0.5 % 0-2 Nucleated Red Blood Cells % 0.1 Lipid Profile (Trig/Chol/HDL) 10/29/2013 Triglycerides 166 mg/dL 35 Cholesterol 154 mg/dL 36 HDL Cholesterol 46.9 mg/dL 37 LDL Cholesterol 74 mg/dL 38 Comp Metabolic Panel 10/29/2013 Sodium 138 mmol/L 133-145 Potassium 4.5 mmol/L 3.7-5.6 Chloride 103 mmol/L 101-111 Co2 Carbon Dioxide 27 mmol/L 22-32 Anion Gap 8 mmol/L 2-11 Glucose 96 mg/dL 70-100 Blood Urea Nitrogen 20 mg/dL 6-24 Creatinine 1.24 mg/dL High 0.67-1.17 BUN/Creatinine Ratio 16.1 8-20 Calcium 9.4 mg/dL 8.6-10.3 Total Protein 7.3 g/dL 6.4-8.9 Albumin 4.1 g/dL 3.2-5.2 Globulin 3.2 g/dL 2-4 Albumin/Globulin Ratio 1.3 1-3 Total Bilirubin 0.50 mg/dL 0.2-1.0 Alkaline Phosphatase 100 U/L 34-104 Alt 73 U/L High 7-52 Ast 44 U/L High 13-39 Egfr Non- 55.5 >60 Egfr 71.4 >60 39 Basic Metabolic Panel 10/17/2013 Sodium 138 mmol/L 133-145 Potassium 4.1 mmol/L 3.7-5.6 Chloride 103 mmol/L 101-111 Co2 Carbon Dioxide 27 mmol/L 22-32 Anion Gap 8 mmol/L 2-11 Glucose 116 mg/dL High 70-100 Blood Urea Nitrogen 23 mg/dL 6-24 Creatinine 1.26 mg/dL High 0.67-1.17 BUN/Creatinine Ratio 18.3 8-20 Calcium 9.4 mg/dL 8.6-10.3 Egfr Non- 54.5 >60 Egfr 70.1 >60 40 Lipid Panel - [facility] 07/29/2012 Creatine Kinase 118 U/L 0-200 41 Comp Metabolic Panel 07/29/2012 Sodium 138 mmol/L 133-145 Potassium 4.2 mmol/L 3.5-5.0 Chloride 103 mmol/L 101-111 Co2 Carbon Dioxide 29.0 mmol/L 22-32 Anion Gap 6.0 mmol/L 2-11 Glucose 121 mg/dL High 70-100 Blood Urea Nitrogen 22 mg/dL 6-24 Creatinine 1.30 mg/dL 0.50-1.40 BUN/Creatinine Ratio 16.9 8-20 Calcium 9.4 mg/dL 8.1-9.9 Total Protein 6.9 GM/DL 6.2-8.1 Albumin 3.9 GM/DL 3.2-5.2 Globulin 3.0 GM/DL 2-4 Albumin/Globulin Ratio 1.3 1-3 Total Bilirubin 0.5 mg/dL 0.1-1.0 42 Alkaline Phosphatase 75 U/L 30-110 Alt 46 U/L 14-54 Ast 33 U/L 12-42 Egfr Non- 52.7 >60 Egfr 67.8 >60 43 Lipid Profile (Trig/Chol/HDL) 07/29/2012 Triglycerides 282 mg/dL High 40- 200 Cholesterol 195 mg/dL Less than 200 HDL Cholesterol 46 mg/dL 40-60 44 Cholesterol/HDL Ratio 4.2 AVERAGE 1-4.44 LDL Cholesterol 92.6 mg/dL Less Than 100 45 Comp Metabolic Panel 06/14/2012 Sodium 138 mmol/L 133-145 Potassium 4.6 mmol/L 3.5-5.0 Chloride 104 mmol/L 101-111 Co2 Carbon Dioxide 29.0 mmol/L 22-32 Anion Gap 5.0 mmol/L 2-11 Glucose 115 mg/dL High 70-100 Blood Urea Nitrogen 16 mg/dL 6-24 Creatinine 1.10 mg/dL 0.50-1.40 BUN/Creatinine Ratio 14.5 8-20 Calcium 9.3 mg/dL 8.1-9.9 Total Protein 6.7 GM/DL 6.2-8.1 Albumin 3.8 GM/DL 3.2-5.2 Globulin 2.9 GM/DL 2-4 Albumin/Globulin Ratio 1.3 1-3 Total Bilirubin 0.6 mg/dL 0.1-1.0 46 Alkaline Phosphatase 84 U/L 30-110 Alt 34 U/L 14-54 Ast 26 U/L 12-42 Egfr Non- 63.9 >60 Egfr 82.2 >60 47 Lipid Profile (Trig/Chol/HDL) 06/14/2012 Triglycerides 235 mg/dL High 40- 200 Cholesterol 191 mg/dL Less than 200 48 HDL Cholesterol 49 mg/dL 40-60 49 Cholesterol/HDL Ratio 3.9 AVERAGE 1-4.44 LDL Cholesterol 95.0 mg/dL Less Than 100 Laboratory test finding 06/14/2012 Creatine Kinase 98 U/L 0-200 C Reactive Protein < 0.5 mg/dL Less Than 0.5 Erythrocyte Sed Rate 21 MM/HR 0-40 CBC Auto Diff 06/14/2012 White Blood Count 8.3 10^3/uL 4.8-10.8 Red Blood Count 4.25 10^6/uL 4.0-5.4 Hemoglobin 13.9 g/dL Low 14.0-18.0 Hematocrit 40 % Low 42-52 Mean Corpuscular Volume 95 fL High 80-94 Mean Corpuscular Hemoglobin 33 pg High 27-31 Mean Corpuscular HGB Conc 34 g/dL 31-36 Red Cell Distribution Width 13 % 10.5-15 Platelet Count 190 10^3/uL 150-450 Mean Platelet Volume 8 um3 7.4-10.4 Abs Neutrophils 5.5 10^3/uL 1.5-7.7 Abs Lymphocytes 1.6 10^3/uL 1.0-4.8 Abs Monocytes 0.9 10^3/uL High 0-0.8 Abs Eosinophils 0.2 10^3/uL 0-0.6 Abs Basophils 0 10^3/uL 0-0.2 Abs Nucleated RBC 0 10^3/uL Granulocyte % 66.2 % 38-83 Lymphocyte % 19.7 % Low 25-47 Monocyte % 11.3 % High 1-9 Eosinophil % 2.3 % 0-6 Basophil % 0.5 % 0-2 Nucleated Red Blood Cells % 0 Basic Metabolic Panel 09/28/2011 Sodium 137 mmol/L 135-145 Potassium 4.1 mmol/L 3.5-5.0 Chloride 104 mmol/L 101-111 Co2 (Carbon Dioxide) 28.0 mmol/L 22-32 Anion Gap 5.0 mmol/L 2-11 50 Glucose 133 mg/dL High 70-100 BUN 21 mg/dL 6-24 Creatinine 1.1 mg/dL 0.50-1.40 One Over Creatinine 0.90 BUN/Creatinine Ratio 19.1 8-20 Calcium 9.4 mg/dL 8.1-9.9 eGFR Non- 64.1 > 60 eGFR 82.4 > 60 51 Lipid Profile (Trig/Chol/HDL) 04/17/2011 Triglyceride 189 mg/dL 40-200 52 Cholesterol 161 mg/dL Less Than 200 52, 53 High Density Lipoprotein 42 mg/dL 40-60 52, 54 Low Density Lipoprotein 81 mg/dL Less Than 100 52, 55 Cholesterol/HDL Ratio 3.83 AVERAGE 1-4.97 52 Laboratory test finding 04/17/2011 CPK (Creatine Kinase) 161 U/L 0-200 52 Comp Metabolic Panel 04/17/2011 Sodium 141 mmol/L 135-145 52 Potassium 4.2 mmol/L 3.5-5.0 52 Chloride 106 mmol/L 101-111 52 Co2 (Carbon Dioxide) 29.0 mmol/L 22-32 52 Anion Gap 6.0 mmol/L 2-11 52, 56 Glucose 115 mg/dL High 70-100 52 BUN 14 mg/dL 6-24 52 Creatinine 1.00 mg/dL 0.50-1.40 52 One Over Creatinine 1.00 52 BUN/Creatinine Ratio 14.0 8-20 52 Calcium 9.2 mg/dL 8.1-9.9 52 Total Protein 6.7 GM/DL 6.2-8.1 52 Albumin 4.0 GM/DL 3.2-5.2 52 Globulin 2.7 GM/DL 2-4 52 Albumin/Globulin Ratio 1.5 1-3 52 Bilirubin Total 0.8 mg/dL 0.4-1.5 52, 57 Alkaline Phosphatase 80 U/L 39-117 52 Alt (SGPT) 22 U/L 17-63 52 Ast (Sgot) 22 U/L 12-42 52 eGFR Non- 71.5 > 60 52 eGFR 92.0 > 60 52, 58 Lipid Panel - [facility] 10/19/2010 CPK (Creatine Kinase) 135 U/L 0-200 Comp Metabolic Panel 10/19/2010 Sodium 138 mmol/L 135-145 Potassium 3.9 mmol/L 3.5-5.0 Chloride 104 mmol/L 101-111 Co2 (Carbon Dioxide) 27.0 mmol/L 22-32 Anion Gap 7.0 mmol/L 2-11 59 Glucose 122 mg/dL High 70-100 BUN 16 mg/dL 6-24 Creatinine 1.10 mg/dL 0.50-1.40 One Over Creatinine 0.90 BUN/Creatinine Ratio 14.5 8-20 Calcium 8.7 mg/dL 8.1-9.9 Total Protein 6.8 GM/DL 6.2-8.1 Albumin 3.7 GM/DL 3.2-5.2 Globulin 3.1 GM/DL 2-4 Albumin/Globulin Ratio 1.2 1-3 Bilirubin Total 0.6 mg/dL 0.4-1.5 60 Alkaline Phosphatase 96 U/L 39-117 Alt (SGPT) 31 U/L 17-63 Ast (Sgot) 24 U/L 12-42 eGFR Non- 64.2 > 60 eGFR 82.6 > 60 61 Lipid Profile (Trig/Chol/HDL) 10/19/2010 Triglyceride 154 mg/dL 40-200 Cholesterol 149 mg/dL Less Than 200 62 High Density Lipoprotein 38 mg/dL Low 40-60 63 Cholesterol/HDL Ratio 3.92 AVERAGE 1-4.97 Low Density Lipoprotein 80 mg/dL Less Than 100 64 CBC With Electronic Diff 08/05/2010 White Blood Count 9.4 CUMM 4.8-10.8 52 Red Cell Count 4.36 CUMM Low 4.6-6.2 52 Hemoglobin 14.1 g/dL 14.0-18.0 52 Hematocrit 41 % Low 42-52 52 Mean Corpuscular Volume 94 um3 80-94 52 Mean Corpuscular Hemoglob 32 pg High 27-31 52 Mean Corpuscular HGB Cone 34 g/dL 32-36 52 Redcell Distribution WDTH 13 % 10.5-15 52 Platelet Count 204 CUMM 150-450 52 Mean Platelet Volume 7.0 um3 Low 7.4-10.4 52 Gran % 59.9 % 38-83 52 Lymph % 19.0 % Low 25-47 52 Mononuclear % 10.3 % High 1-9 52 Eosinophil % 10.2 % High 0-6 52 Basophil % 0.6 % 0-2 52 Abs Lymphs 1.8 1.0-4.8 52 Abs Mononuclear 1.0 High 0-0.8 52 Absolute Neutrophil Count 5.6 1.5-7.7 52 Abs Eosinophils 1.0 High 0-0.6 52 Abs Basophils 0.1 0-0.2 52, 65 Laboratory test finding 08/05/2010 CPK (Creatine Kinase) 116 U/L 0-200 52 Lipid Profile 08/05/2010 Triglyceride 202 mg/dL High 40-200 52 (Trig/Chol/HDL) Cholesterol 199 mg/dL Less Than 200 52, 66 High Density Lipoprotein 40 mg/dL 40-60 52, 67 Cholesterol/HDL Ratio 4.98 AVERAGE High 1-4.97 52 Low Density Lipoprotein 119 mg/dL High Less Than 100 52, 68 Comp Metabolic Panel 08/05/2010 Sodium 136 mmol/L 135-145 52 Potassium 3.9 mmol/L 3.5-5.0 52 Chloride 101 mmol/L 101-111 52 Co2 (Carbon Dioxide) 27.0 mmol/L 22-32 52 Anion Gap 8.0 mmol/L 2-11 52, 69 Glucose 115 mg/dL High 70-100 52, 70 BUN 16 mg/dL 6-24 52 Creatinine 1.00 mg/dL 0.50-1.40 52 One Over Creatinine 1.00 52 BUN/Creatinine Ratio 16.0 8-20 52 Calcium 8.7 mg/dL 8.1-9.9 52 Total Protein 7.1 GM/DL 6.2-8.1 52 Albumin 3.7 GM/DL 3.2-5.2 52 Globulin 3.4 GM/DL 2-4 52 Albumin/Globulin Ratio 1.1 1-3 52 Bilirubin Total 0.6 mg/dL 0.4-1.5 52, 71 Alkaline Phosphatase 97 U/L 39-117 52 Alt (SGPT) 26 U/L 17-63 52 Ast (Sgot) 24 U/L 12-42 52 eGFR Non- 76.2 > 60 52 eGFR 92.2 > 60 52, 72 Basic Metabolic Panel 07/15/2009 Sodium 140 mmol/L 135-145 73 Potassium 4.2 mmol/L 3.5-5.0 73 Chloride 106 mmol/L 101-111 73 Co2 (Carbon Dioxide) 29.0 mmol/L 22-32 73 Anion Gap 5.0 mmol/L 2-11 73, 74 Glucose 95 mg/dL 70-100 73, 75 BUN 20 mg/dL 6-24 73 Creatinine 1.10 mg/dL 0.50-1.40 73 One Over Creatinine 0.90 73 BUN/Creatinine Ratio 18.2 8-20 73 Calcium 9.1 mg/dL 8.1-9.9 73, 76 eGFR Non- 68.5 > 60 73 eGFR 82.8 > 60 73, 77 Lipid Profile (Trig/Chol/HDL) 02/08/2009 Triglyceride 116 mg/dL 40-200 Cholesterol 131 mg/dL Less Than 200 78 High Density Lipoprotein 38 mg/dL Low 40-60 79 Cholesterol/HDL Ratio 3.45 AVERAGE 1-4.97 Low Density Lipoprotein 70 mg/dL Less Than 100 80 Comp Metabolic Panel 02/08/2009 Sodium 141 mmol/L 135-145 Potassium 4.4 mmol/L 3.5-5.0 Chloride 108 mmol/L 101-111 Co2 (Carbon Dioxide) 27.0 mmol/L 22-32 Anion Gap 6.0 mmol/L 2-11 81 Glucose 100 mg/dL 70-100 82 BUN 23 mg/dL 6-24 Creatinine 1.10 mg/dL 0.50-1.40 One Over Creatinine 0.90 BUN/Creatinine Ratio 20.9 High 8-20 Calcium 8.8 mg/dL 8.1-9.9 83 Total Protein 6.3 GM/DL 6.2-8.1 Albumin 3.7 GM/DL 3.2-5.2 Globulin 2.6 GM/DL 2-4 Albumin/Globulin Ratio 1.4 1-3 Bilirubin Total 1.0 mg/dL 0.4-1.5 84 Alkaline Phosphatase 104 U/L 39-117 Alt (SGPT) 45 U/L 17-63 Ast (Sgot) 41 U/L 12-42 Lipid Panel - [facility] 02/08/2009 CPK (Creatine Kinase) 163 U/L 0-200 Laboratory test finding 08/17/2008 CPK (Creatine Kinase) 171 U/L 0-200 85 Lipid Profile (Trig/Chol/HDL) 08/17/2008 Triglyceride 171 mg/dL 40-200 85 Cholesterol 149 mg/dL Less Than 200 85, 86 High Density Lipoprotein 39 mg/dL Low 40-60 85, 87 Cholesterol/HDL Ratio 3.82 AVERAGE 1-4.97 85 Low Density Lipoprotein 76 mg/dL Less Than 100 85, 88 Comp Metabolic Panel 08/17/2008 Sodium 140 mmol/L 135-145 85 Potassium 4.3 mmol/L 3.5-5.0 85 Chloride 107 mmol/L 101-111 85 Co2 (Carbon Dioxide) 30.0 mmol/L 22-32 85 Anion Gap 3.0 mmol/L 2-11 85, 89 Glucose 107 mg/dL High 70-100 85, 90 BUN 23 mg/dL 6-24 85 Creatinine 1.19 mg/dL 0.50-1.40 85 One Over Creatinine 0.80 85 BUN/Creatinine Ratio 19.3 8-20 85 Calcium 9.0 mg/dL 8.1-9.9 85, 91 Total Protein 6.9 GM/DL 6.2-8.1 85 Albumin 3.7 GM/DL 3.2-5.2 85 Globulin 3.2 GM/DL 2-4 85 Albumin/Globulin Ratio 1.2 1-3 85 Bilirubin Total 0.4 mg/dL 0.4-1.5 85 Alkaline Phosphatase 74 U/L 39-117 85 Alt (SGPT) 26 U/L 17-63 85 Ast (Sgot) 22 U/L 12-42 85 Lipid Profile (Trig/Chol/HDL) 02/18/2008 Triglyceride 171 mg/dL 40-200 85 Cholesterol 143 mg/dL Less Than 200 85, 92 High Density Lipoprotein 29 mg/dL Low 40-60 85, 93 Cholesterol/HDL Ratio 4.93 AVERAGE 1-4.97 85 Low Density Lipoprotein 80 mg/dL Less Than 100 85, 94 Comp Metabolic Panel 02/18/2008 Sodium 138 mmol/L 135-145 85 Potassium 5.0 mmol/L 3.5-5.0 85 Chloride 107 mmol/L 101-111 85 Co2 (Carbon Dioxide) 26.0 mmol/L 22-32 85 Anion Gap 5.0 mmol/L 2-11 85, 95 Glucose 110 mg/dL High 70-105 85 BUN 34 mg/dL High 6-24 85 Creatinine 1.5 mg/dL High 0.5-1.4 85 One Over Creatinine 0.66 85 BUN/Creatinine Ratio 22.7 High 8-20 85 Calcium 9.0 mg/dL 8.1-9.9 85, 96 Total Protein 6.7 GM/DL 6.2-8.1 85 Albumin 3.8 GM/DL 3.2-5.2 85 Globulin 2.9 GM/DL 2-4 85 Albumin/Globulin Ratio 1.3 1-3 85 Bilirubin Total 0.6 mg/dL 0.4-1.5 85 Alkaline Phosphatase 68 U/L 39-117 85 Alt (SGPT) 19 U/L 17-63 85 Ast (Sgot) 16 U/L 12-42 85 Lipid Panel - [facility] 02/18/2008 CPK (Creatine Kinase) 147 U/L 0-200 85 Lipid Panel - [facility] 09/26/2007 CPK (Creatine Kinase) 137 U/L 0-200 85 Comp Metabolic Panel 09/26/2007 One Over Creatinine 0.71 85 Anion Gap 5.0 mmol/L 2-11 85, 97 Albumin/Globulin Ratio 1.2 1-3 85 Albumin 3.6 GM/DL 3.2-5.2 85 Alkaline Phosphatase 72 U/L 39-117 85 Alt (SGPT) 25 U/L 17-63 85 Ast (Sgot) 18 U/L 12-42 85 BUN 20 mg/dL 6-24 85 Calcium 8.7 mg/dL 8.7-10.2 85 Chloride 106 mmol/L 101-111 85 Co2 (Carbon Dioxide) 29.0 mmol/L 22-32 85 Globulin 2.9 GM/DL 2-4 85 Glucose 110 mg/dL High 70-105 85 Potassium 4.6 mmol/L 3.5-5.0 85 Sodium 140 mmol/L 135-145 85 Bilirubin Total 0.3 mg/dL Low 0.4-1.5 85 Total Protein 6.5 GM/DL 6.2-8.1 85 BUN/Creatinine Ratio 14.3 8-20 85 Creatinine 1.4 mg/dL 0.5-1.4 85 Lipid Profile 09/26/2007 Cholesterol/HDL Ratio 5.10 AVERAGE High 1-4.97 85 (Trig/Chol/HDL) Cholesterol 158 mg/dL Less Than 200 85, 98 Triglyceride 193 mg/dL 40-200 85 High Density Lipoprotein 31 mg/dL Low 40-60 85, 99 Low Density Lipoprotein 88 mg/dL Less Than 100 85, 100 Comp Metabolic Panel 03/18/2007 One Over Creatinine 0.76 85 Anion Gap 5.0 mmol/L 2-11 85, 101 Albumin/Globulin Ratio 1.4 1-3 85 Albumin 3.8 GM/DL 3.2-5.2 85 Alkaline Phosphatase 71 U/L 39-117 85 Alt (SGPT) 19 U/L 17-63 85 Ast (Sgot) 19 U/L 12-42 85 BUN 25 mg/dL High 6-24 85 Calcium 8.7 mg/dL 8.7-10.2 85 Chloride 107 mmol/L 101-111 85 Co2 (Carbon Dioxide) 26.0 mmol/L 22-32 85 Globulin 2.8 GM/DL 2-4 85 Glucose 109 mg/dL High 70-105 85 Potassium 4.7 mmol/L 3.5-5.0 85 Sodium 138 mmol/L 135-145 85 Bilirubin Total 0.8 mg/dL 0.4-1.5 85 Total Protein 6.6 GM/DL 6.2-8.1 85 BUN/Creatinine Ratio 19.2 8-20 85 Creatinine 1.3 mg/dL 0.5-1.4 85 Lipid Profile 03/18/2007 Cholesterol/HDL Ratio 3.09 AVERAGE 1-4.97 85 (Trig/Chol/HDL) Cholesterol 108 mg/dL Less Than 200 85, 102 Triglyceride 73 mg/dL 40-200 85 High Density Lipoprotein 35 mg/dL Low 40-60 85, 103 Low Density Lipoprotein 58 mg/dL Less Than 100 85, 104 Lipid Panel - [facility] 03/18/2007 CPK (Creatine Kinase) 309 U/L High 0-200 85 Lipid Profile 01/14/2007 Cholesterol/HDL Ratio 3.64 AVERAGE 1-4.97 85 (Trig/Chol/HDL) Cholesterol 131 mg/dL Less Than 200 85, 105 Triglyceride 110 mg/dL 40-200 85 High Density Lipoprotein 36 mg/dL Low 40-60 85, 106 Low Density Lipoprotein 73 mg/dL Less Than 100 85, 107 Comp Metabolic Panel 01/14/2007 One Over Creatinine 0.90 85 Anion Gap 8.0 mmol/L 2-11 85, 108 Albumin/Globulin Ratio 1.2 1-3 85 Albumin 3.6 GM/DL 3.2-5.2 85 Alkaline Phosphatase 75 U/L 39-117 85 Alt (SGPT) 19 U/L 17-63 85 Ast (Sgot) 22 U/L 12-42 85 BUN 24 mg/dL 6-24 85 Calcium 8.7 mg/dL 8.7-10.2 85 Chloride 103 mmol/L 101-111 85 Co2 (Carbon Dioxide) 29.0 mmol/L 22-32 85 Globulin 2.9 GM/DL 2-4 85 Glucose 112 mg/dL High 70-105 85 Potassium 4.3 mmol/L 3.5-5.0 85 Sodium 140 mmol/L 135-145 85 Bilirubin Total 0.7 mg/dL 0.4-1.5 85 Total Protein 6.5 GM/DL 6.2-8.1 85 BUN/Creatinine Ratio 21.8 High 8-20 85 Creatinine 1.1 mg/dL 0.5-1.4 85 Lipid Panel - [facility] 01/14/2007 CPK (Creatine Kinase) 303 U/L High 0-200 85 Lipid Profile 11/12/2006 Cholesterol/HDL Ratio 4.68 AVERAGE 1-4.97 85 (Trig/Chol/HDL) Cholesterol 178 mg/dL Less Than 200 85, 109 Triglyceride 229 mg/dL High 40-200 85 High Density Lipoprotein 38 mg/dL Low 40-60 85, 110 Low Density Lipoprotein 94 mg/dL Less Than 100 85, 111 Comp Metabolic Panel 11/12/2006 One Over Creatinine 0.76 85 Anion Gap 7.0 mmol/L 2-11 85, 112 Albumin/Globulin Ratio 1.4 1-3 85 Albumin 4.0 GM/DL 3.2-5.2 85 Alkaline Phosphatase 82 U/L 39-117 85 Alt (SGPT) 27 U/L 17-63 85 Ast (Sgot) 22 U/L 12-42 85 BUN 23 mg/dL 6-24 85 Calcium 9.1 mg/dL 8.7-10.2 85 Chloride 107 mmol/L 101-111 85 Co2 (Carbon Dioxide) 29.0 mmol/L 22-32 85 Globulin 2.8 GM/DL 2-4 85 Glucose 109 mg/dL High 70-105 85 Potassium 4.6 mmol/L 3.5-5.0 85 Sodium 143 mmol/L 135-145 85 Bilirubin Total 0.5 mg/dL 0.4-1.5 85 Total Protein 6.8 GM/DL 6.2-8.1 85 BUN/Creatinine Ratio 17.7 8-20 85 Creatinine 1.3 mg/dL 0.5-1.4 85 Laboratory test finding 11/12/2006 CPK (Creatine Kinase) 189 U/L 0-200 85 Laboratory test finding 07/25/2006 Magnesium 2.2 mg/dL 1.7-2.6 Basic Metabolic Panel 01/09/2006 One Over Creatinine 0.76 85 Anion Gap 6.0 mmol/L 2-11 85, 113 BUN 24 mg/dL 6-24 85 Calcium 9.0 mg/dL 8.7-10.2 85 Chloride 104 mmol/L 101-111 85 Co2 (Carbon Dioxide) 30.0 mmol/L 22-32 85 Glucose 103 mg/dL 70-105 85 Potassium 4.1 mmol/L 3.5-5.0 85 Sodium 140 mmol/L 135-145 85 BUN/Creatinine Ratio 18.5 8-20 85 Creatinine 1.3 mg/dL 0.5-1.4 85 1 Because ethnic data is not always readily available, this report includes an eGFR for both -Americans and non- Americans. The National Kidney Disease Education Program (NKDEP) does not endorse the use of the MDRD equation for patients that are not between the ages of 18 and 70, are , have extremes of body size, muscle mass, or nutritional status, or are non- or non-. According to the National Kid[employer] Foundation, irrespective of diagnosis, the stage of the disease is based on the level of kidney function: Stage Description GFR(mL/min/1.73 m(2)) 1 Kidney damage with normal or decreased GFR 90 2 Kidney damage with mild decrease in GFR 60-89 3 Moderate decrease in GFR 30-59 4 Severe decrease in GFR 15-29 5 Kidney failure <15 (or dialysis) 2 Desirable: <150 Borderline High: 150-199 High: 200-499 Very High: >500 3 Desirable: <200 Borderline High: 200-239 High: >239 4 Low: <40 Desirable: 40-60 High: >60 5 Desirable: <100 Near Optimal: 100-129 Borderline High: 130-159 High: 160-189 Very High: >189 6 >100 to <200 pg/mL: likely compensated congestive heart failure (CHF) 200 to 400 pg/mL: likely moderate CHF >400 pg/mL: likely moderate to severe CHF 7 >100 to <200 pg/mL: likely compensated congestive heart failure (CHF) 200 to 400 pg/mL: likely moderate CHF >400 pg/mL: likely moderate to severe CHF 8 Because ethnic data is not always readily available, this report includes an eGFR for both -Americans and non- Americans. The National Kidney Disease Education Program (NKDEP) does not endorse the use of the MDRD equation for patients that are not between the ages of 18 and 70, are , have extremes of body size, muscle mass, or nutritional status, or are non- or non-. According to the National Kidney Foundation, irrespective of diagnosis, the stage of the disease is based on the level of kidney function: Stage Description GFR(mL/min/1.73 m(2)) 1 Kidney damage with normal or decreased GFR 90 2 Kidney damage with mild decrease in GFR 60-89 3 Moderate decrease in GFR 30-59 4 Severe decrease in GFR 15-29 5 Kidney failure <15 (or dialysis) 9 non-fasting today cc pmd 10 Fasting in next 1-2 weeks 11 Because ethnic data is not always readily available, this report includes an eGFR for both -Americans and non- Americans. The National Kidney Disease Education Program (NKDEP) does not endorse the use of the MDRD equation for patients that are not between the ages of 18 and 70, are , have extremes of body size, muscle mass, or nutritional status, or are non- or non-. According to the National Kidney Foundation, irrespective of diagnosis, the stage of the disease is based on the level of kidney function: Stage Description GFR(mL/min/1.73 m(2)) 1 Kidney damage with normal or decreased GFR 90 2 Kidney damage with mild decrease in GFR 60-89 3 Moderate decrease in GFR 30-59 4 Severe decrease in GFR 15-29 5 Kidney failure <15 (or dialysis) 12 Desirable <150 Borderline high 150-199 High 200-499 Very High >500 13 Desirable <200 Borderline high 200-239 High >239 14 Low <40 Desirable: 40-60 High: >60 15 Desirable: <100 mg/dL Near Optimal: 100-129 mg/dL Borderline High: 130-159 mg/dL High: 160-189 mg/dL Very High: >189 mg/dL 16 Because ethnic data is not always readily available, this report includes an eGFR for both -Americans and non- Americans. The National Kidney Disease Education Program (NKDEP) does not endorse the use of the MDRD equation for patients that are not between the ages of 18 and 70, are , have extremes of body size, muscle mass, or nutritional status, or are non- or non-. According to the National Kidney Foundation, irrespective of diagnosis, the stage of the disease is based on the level of kidney function: Stage Description GFR(mL/min/1.73 m(2)) 1 Kidney damage with normal or decreased GFR 90 2 Kidney damage with mild decrease in GFR 60-89 3 Moderate decrease in GFR 30-59 4 Severe decrease in GFR 15-29 5 Kidney failure <15 (or dialysis) 17 Because ethnic data is not always readily available, this report includes an eGFR for both -Americans and non- Americans. The National Kidney Disease Education Program (NKDEP) does not endorse the use of the MDRD equation for patients that are not between the ages of 18 and 70, are , have extremes of body size, muscle mass, or nutritional status, or are non- or non-. According to the National Kidney Foundation, irrespective of diagnosis, the stage of the disease is based on the level of kidney function: Stage Description GFR(mL/min/1.73 m(2)) 1 Kidney damage with normal or decreased GFR 90 2 Kidney damage with mild decrease in GFR 60-89 3 Moderate decrease in GFR 30-59 4 Severe decrease in GFR 15-29 5 Kidney failure <15 (or dialysis) 18 Normal Range 180 to 914 Indeterminate Range 145 to 180 Deficient Range <145 19 >100 to <200 pg/mL: likely compensated congestive heart failure (CHF) 200 to 400 pg/mL: likely moderate CHF >400 pg/mL: likely moderate to severe CHF [place] [facility] 20 Potassium reference range changed effective 07/05/14 21 Because ethnic data is not always readily available, this report includes an eGFR for both -Americans and non- Americans. The National Kidney Disease Education Program (NKDEP) does not endorse the use of the MDRD equation for patients that are not between the ages of 18 and 70, are , have extremes of body size, muscle mass, or nutritional status, or are non- or non-. According to the National Kidney Foundation, irrespective of diagnosis, the stage of the disease is based on the level of kidney function: Stage Description GFR(mL/min/1.73 m(2)) 1 Kidney damage with normal or decreased GFR 90 2 Kidney damage with mild decrease in GFR 60-89 3 Moderate decrease in GFR 30-59 4 Severe decrease in GFR 15-29 5 Kidney failure <15 (or dialysis) 22 Because ethnic data is not always readily available, this report includes an eGFR for both -Americans and non- Americans. The National Kidney Disease Education Program (NKDEP) does not endorse the use of the MDRD equation for patients that are not between the ages of 18 and 70, are , have extremes of body size, muscle mass, or nutritional status, or are non- or non-. According to the National Kidney Foundation, irrespective of diagnosis, the stage of the disease is based on the level of kidney function: Stage Description GFR(mL/min/1.73 m(2)) 1 Kidney damage with normal or decreased GFR 90 2 Kidney damage with mild decrease in GFR 60-89 3 Moderate decrease in GFR 30-59 4 Severe decrease in GFR 15-29 5 Kidney failure <15 (or dialysis) 23 FASTING 24 FASTING 25 Because ethnic data is not always readily available, this report includes an eGFR for both -Americans and non- Americans. The National Kidney Disease Education Program (NKDEP) does not endorse the use of the MDRD equation for patients that are not between the ages of 18 and 70, are , have extremes of body size, muscle mass, or nutritional status, or are non- or non-. According to the National Kid[employer] Foundation, irrespective of diagnosis, the stage of the disease is based on the level of kidney function: Stage Description GFR(mL/min/1.73 m(2)) 1 Kidney damage with normal or decreased GFR 90 2 Kidney damage with mild decrease in GFR 60-89 3 Moderate decrease in GFR 30-59 4 Severe decrease in GFR 15-29 5 Kidney failure <15 (or dialysis) 26 Desirable <150 Borderline high 150-199 High 200-499 Very High >500 27 Desirable <200 Borderline high 200-239 High >239 28 Low <40 Desirable: 40-60 High: >60 29 Desirable <100 Near Optimal 100-129 Borderline high 130-159 High 160-189 Very High >189 30 Because ethnic data is not always readily available, this report includes an eGFR for both -Americans and non- Americans. The National Kidney Disease Education Program (NKDEP) does not endorse the use of the MDRD equation for patients that are not between the ages of 18 and 70, are , have extremes of body size, muscle mass, or nutritional status, or are non- or non-. According to the National Kidney Foundation, irrespective of diagnosis, the stage of the disease is based on the level of kidney function: Stage Description GFR(mL/min/1.73 m(2)) 1 Kidney damage with normal or decreased GFR 90 2 Kidney damage with mild decrease in GFR 60-89 3 Moderate decrease in GFR 30-59 4 Severe decrease in GFR 15-29 5 Kidney failure <15 (or dialysis) 31 [facility] 32 Because ethnic data is not always readily available, this report includes an eGFR for both -Americans and non- Americans. The National Kidney Disease Education Program (NKDEP) does not endorse the use of the MDRD equation for patients that are not between the ages of 18 and 70, are , have extremes of body size, muscle mass, or nutritional status, or are non- or non-. According to the National Kidney Foundation, irrespective of diagnosis, the stage of the disease is based on the level of kidney function: Stage Description GFR(mL/min/1.73 m(2)) 1 Kidney damage with normal or decreased GFR 90 2 Kidney damage with mild decrease in GFR 60-89 3 Moderate decrease in GFR 30-59 4 Severe decrease in GFR 15-29 5 Kidney failure <15 (or dialysis) 33 Because ethnic data is not always readily available, this report includes an eGFR for both -Americans and non- Americans. The National Kidney Disease Education Program (NKDEP) does not endorse the use of the MDRD equation for patients that are not between the ages of 18 and 70, are , have extremes of body size, muscle mass, or nutritional status, or are non- or non-. According to the National Kidney Foundation, irrespective of diagnosis, the stage of the disease is based on the level of kidney function: Stage Description GFR(mL/min/1.73 m(2)) 1 Kidney damage with normal or decreased GFR 90 2 Kidney damage with mild decrease in GFR 60-89 3 Moderate decrease in GFR 30-59 4 Severe decrease in GFR 15-29 5 Kidney failure <15 (or dialysis) 34 >100 to <200 pg/mL: likely compensated congestive heart failure (CHF) 200 to 400 pg/mL: likely moderate CHF >400 pg/mL: likely moderate to severe CHF [place] [facility] 35 Desirable <150 Borderline high 150-199 High 200-499 Very High >500 36 Desirable <200 Borderline high 200-239 High >239 37 Low <40 Desirable: 40-60 High: >60 38 Desirable <100 Near Optimal 100-129 Borderline high 130-159 High 160-189 Very High >189 39 Because ethnic data is not always readily available, this report includes an eGFR for both -Americans and non- Americans. The National Kidney Disease Education Program (NKDEP) does not endorse the use of the MDRD equation for patients that are not between the ages of 18 and 70, are , have extremes of body size, muscle mass, or nutritional status, or are non- or non-. According to the National Kidney Foundation, irrespective of diagnosis, the stage of the disease is based on the level of kidney function: Stage Description GFR(mL/min/1.73 m(2)) 1 Kidney damage with normal or decreased GFR 90 2 Kidney damage with mild decrease in GFR 60-89 3 Moderate decrease in GFR 30-59 4 Severe decrease in GFR 15-29 5 Kidney failure <15 (or dialysis) 40 Because ethnic data is not always readily available, this report includes an eGFR for both -Americans and non- Americans. The National Kidney Disease Education Program (NKDEP) does not endorse the use of the MDRD equation for patients that are not between the ages of 18 and 70, are , have extremes of body size, muscle mass, or nutritional status, or are non- or non-. According to the National Kidney Foundation, irrespective of diagnosis, the stage of the disease is based on the level of kidney function: Stage Description GFR(mL/min/1.73 m(2)) 1 Kidney damage with normal or decreased GFR 90 2 Kidney damage with mild decrease in GFR 60-89 3 Moderate decrease in GFR 30-59 4 Severe decrease in GFR 15-29 5 Kidney failure <15 (or dialysis) 41 Fasting 42 A metabolite of Naproxen, O-desmethylnaproxen, has been shown to interfere with the Jendrassik-[place] method for measuring total bilirubin. Samples from patients who have taken Naproxen have shown spurious elevation in total bilirubin levels. 43 Because ethnic data is not always readily available, this report includes an eGFR for both -Americans and non- Americans. The National Kidney Disease Education Program (NKDEP) does not endorse the use of the MDRD equation for patients that are not between the ages of 18 and 70, are , have extremes of body size, muscle mass, or nutritional status, or are non- or non-. According to the National Kidney Foundation, irrespective of diagnosis, the stage of the disease is based on the level of kidney function: Stage Description GFR(mL/min/1.73 m(2)) 1 Kidney damage with normal or decreased GFR 90 2 Kidney damage with mild decrease in GFR 60-89 3 Moderate decrease in GFR 30-59 4 Severe decrease in GFR 15-29 5 Kidney failure <15 (or dialysis) 44 HDL Interpretation: Undesirable: High Risk: Less than 40 MG/DL Desirable: Low Risk: Greater than 60 MG/DL 45 LDL Interpretation: Low Risk Optimal Level: LDL Less than 100 MG/DL Near or Above Optimal: LDL 100-129 MG/DL Borderline High Risk: LDL 130-159 MG/DL High Risk: LDL 160-189 MG/DL Very High Risk: LDL Greater than 189 MG/DL 46 A metabolite of Naproxen, O-desmethylnaproxen, has been shown to interfere with the Jendrassik-[place] method for measuring total bilirubin. Samples from patients who have taken Naproxen have shown spurious elevation in total bilirubin levels. 47 Because ethnic data is not always readily available, this report includes an eGFR for both -Americans and non- Americans. The National Kidney Disease Education Program (NKDEP) does not endorse the use of the MDRD equation for patients that are not between the ages of 18 and 70, are , have extremes of body size, muscle mass, or nutritional status, or are non- or non-. According to the National Kidney Foundation, irrespective of diagnosis, the stage of the disease is based on the level of kidney function: Stage Description GFR(mL/min/1.73 m(2)) 1 Kidney damage with normal or decreased GFR 90 2 Kidney damage with mild decrease in GFR 60-89 3 Moderate decrease in GFR 30-59 4 Severe decrease in GFR 15-29 5 Kidney failure <15 (or dialysis) 48 Desirable: Less than 200 MG/DL Borderline-High Risk: 200-239 MG/DL High-Risk: 240 MG/DL and over 49 HDL Interpretation: Undesirable: High Risk: Less than 40 MG/DL Desirable: Low Risk: Greater than 60 MG/DL 50 Anion gap measurement may be of limited value in the presence of any alkalosis, especially in a combined acid base disorder. . 51 Because ethnic data is not always readily available, this report includes an eGFR for both -Americans and non- Americans. The National Kidney Disease Education Program (NKDEP) does not endorse the use of the MDRD equation for patients that are not between the ages of 18 and 70, are , have extremes of body size, muscle mass, or nutritional status, or are non- or non-. According to the National Kidney Foundation, irrespective of diagnosis, the stage of the disease is based on the level of kidney function: Stage Description GFR(mL/min/1.73 m(2)) 1 Kidney damage with normal or decreased GFR 90 2 Kidney damage with mild decrease in GFR 60-89 3 Moderate decrease in GFR 30-59 4 Severe decrease in GFR 15-29 5 Kidney failure <15 (or dialysis) 52 FASTING 53 CHOLESTEROL INTERPRETATION: Desirable: Less than 200 MG/DL Borderline-High Risk: 200-239 MG/DL High-Risk: 240 MG/DL and over 54 HDL INTERPRETATION: Undesirable: High Risk: Less than 40 MG/DL Desirable: Low Risk: Greater than 60 MG/DL 55 LDL INTERPRETATION: Low Risk Optimal Level: LDL Less than 100 MG/DL Near or Above Optimal: LDL 100-129 MG/DL Borderline High Risk: LDL 130-159 MG/DL High Risk: LDL 160-189 MG/DL Very High Risk: LDL Greater than 189 MG/DL 56 Anion gap measurement may be of limited value in the presence of any alkalosis, especially in a combined acid base disorder. . 57 A metabolite of Naproxen, O-desmethylnaproxen, has been shown to interfere with the Jendrassik-Chandrakant method for measuring total bilirubin. Samples from patients who have taken Naproxen have shown spurious elevation in total bilirubin levels. 58 Because ethnic data is not always readily available, this report includes an eGFR for both -Americans and non- Americans. The National Kidney Disease Education Program (NKDEP) does not endorse the use of the MDRD equation for patients that are not between the ages of 18 and 70, are , have extremes of body size, muscle mass, or nutritional status, or are non- or non-. According to the National Kidney Foundation, irrespective of diagnosis, the stage of the disease is based on the level of kidney function: Stage Description GFR(mL/min/1.73 m(2)) 1 Kidney damage with normal or decreased GFR 90 2 Kidney damage with mild decrease in GFR 60-89 3 Moderate decrease in GFR 30-59 4 Severe decrease in GFR 15-29 5 Kidney failure <15 (or dialysis) 59 Anion gap measurement may be of limited value in the presence of any alkalosis, especially in a combined acid base disorder. . 60 A metabolite of Naproxen, O-desmethylnaproxen, has been shown to interfere with the Jendrassik-Chandrakant method for measuring total bilirubin. Samples from patients who have taken Naproxen have shown spurious elevation in total bilirubin levels. 61 Because ethnic data is not always readily available, this report includes an eGFR for both -Americans and non- Americans. The National Kidney Disease Education Program (NKDEP) does not endorse the use of the MDRD equation for patients that are not between the ages of 18 and 70, are , have extremes of body size, muscle mass, or nutritional status, or are non- or non-. According to the National Kidney Foundation, irrespective of diagnosis, the stage of the disease is based on the level of kidney function: Stage Description GFR(mL/min/1.73 m(2)) 1 Kidney damage with normal or decreased GFR 90 2 Kidney damage with mild decrease in GFR 60-89 3 Moderate decrease in GFR 30-59 4 Severe decrease in GFR 15-29 5 Kidney failure <15 (or dialysis) 62 CHOLESTEROL INTERPRETATION: Desirable: Less than 200 MG/DL Borderline-High Risk: 200-239 MG/DL High-Risk: 240 MG/DL and over 63 HDL INTERPRETATION: Undesirable: High Risk: Less than 40 MG/DL Desirable: Low Risk: Greater than 60 MG/DL 64 LDL INTERPRETATION: Low Risk Optimal Level: LDL Less than 100 MG/DL Near or Above Optimal: LDL 100-129 MG/DL Borderline High Risk: LDL 130-159 MG/DL High Risk: LDL 160-189 MG/DL Very High Risk: LDL Greater than 189 MG/DL 65 Lymphopenia % 66 CHOLESTEROL INTERPRETATION: Desirable: Less than 200 MG/DL Borderline-High Risk: 200-239 MG/DL High-Risk: 240 MG/DL and over 67 HDL INTERPRETATION: Undesirable: High Risk: Less than 40 MG/DL Desirable: Low Risk: Greater than 60 MG/DL 68 LDL INTERPRETATION: Low Risk Optimal Level: LDL Less than 100 MG/DL Near or Above Optimal: LDL 100-129 MG/DL Borderline High Risk: LDL 130-159 MG/DL High Risk: LDL 160-189 MG/DL Very High Risk: LDL Greater than 189 MG/DL 69 Anion gap measurement may be of limited value in the presence of any alkalosis, especially in a combined acid base disorder. . 70 Note change in reference range as of 04/23/08. The change was based on recommendations from the [place] [employer]. 71 A metabolite of Naproxen, O-desmethylnaproxen, has been shown to interfere with the Jendrassik-Chandrakant method for measuring total bilirubin. Samples from patients who have taken Naproxen have shown spurious elevation in total bilirubin levels. 72 Because ethnic data is not always readily available, this report includes an eGFR for both -Americans and non- Americans. The National Kidney Disease Education Program (NKDEP) does not endorse the use of the MDRD equation for patients that are not between the ages of 18 and 70, are , have extremes of body size, muscle mass, or nutritional status, or are non- or non-. According to the National Kidney Foundation, irrespective of diagnosis, the stage of the disease is based on the level of kidney function: Stage Description GFR(mL/min/1.73 m(2)) 1 Kidney damage with normal or decreased GFR 90 2 Kidney damage with mild decrease in GFR 60-89 3 Moderate decrease in GFR 30-59 4 Severe decrease in GFR 15-29 5 Kidney failure <15 (or dialysis) 73 FAX TO [phone] Anion gap measurement may be of limited value in the presence of any alkalosis, especially in a combined acid base disorder. . 75 Note change in reference range as of 04/23/08. The change was based on recommendations from the [place] [employer]. 76 Please note change in reference range effective 08 . 77 Because ethnic data is not always readily available, this report includes an eGFR for both -Americans and non- Americans. The National Kidney Disease Education Program (NKDEP) does not endorse the use of the MDRD equation for patients that are not between the ages of 18 and 70, are , have extremes of body size, muscle mass, or nutritional status, or are non- or non-. According to the National Kidney Foundation, irrespective of diagnosis, the stage of the disease is based on the level of kidney function: Stage Description GFR(mL/min/1.73 m(2)) 1 Kidney damage with normal or decreased GFR 90 2 Kidney damage with mild decrease in GFR 60-89 3 Moderate decrease in GFR 30-59 4 Severe decrease in GFR 15-29 5 Kidney failure <15 (or dialysis) 78 CHOLESTEROL INTERPRETATION: Desirable: Less than 200 MG/DL Borderline-High Risk: 200-239 MG/DL High-Risk: 240 MG/DL and over 79 HDL INTERPRETATION: Undesirable: High Risk: Less than 40 MG/DL Desirable: Low Risk: Greater than 60 MG/DL 80 LDL INTERPRETATION: Low Risk Optimal Level: LDL Less than 100 MG/DL Near or Above Optimal: LDL 100-129 MG/DL Borderline High Risk: LDL 130-159 MG/DL High Risk: LDL 160-189 MG/DL Very High Risk: LDL Greater than 189 MG/DL 81 Anion gap measurement may be of limited value in the presence of any alkalosis, especially in a combined acid base disorder. . 82 Note change in reference range as of 04/23/08. The change was based on recommendations from the [place] [employer]. 83 Please note change in reference range effective 08 . 84 A metabolite of Naproxen, O-desmethylnaproxen, has been shown to interfere with the Jendrassik-Chandrakant method for measuring total bilirubin. Samples from patients who have taken Naproxen have shown spurious elevation in total bilirubin levels. 85 FASTING 86 CHOLESTEROL INTERPRETATION: Desirable: Less than 200 MG/DL Borderline-High Risk: 200-239 MG/DL High-Risk: 240 MG/DL and over 87 HDL INTERPRETATION: Undesirable: High Risk: Less than 40 MG/DL Desirable: Low Risk: Greater than 60 MG/DL 88 LDL INTERPRETATION: Low Risk Optimal Level: LDL Less than 100 MG/DL Near or Above Optimal: LDL 100-129 MG/DL Borderline High Risk: LDL 130-159 MG/DL High Risk: LDL 160-189 MG/DL Very High Risk: LDL Greater than 189 MG/DL 89 Anion gap measurement may be of limited value in the presence of any alkalosis, especially in a combined acid base disorder. . 90 Note change in reference range as of 04/23/08. The change was based on recommendations from the [place] [employer]. 91 Please note change in reference range effective 08 . 92 CHOLESTEROL INTERPRETATION: Desirable: Less than 200 MG/DL Borderline-High Risk: 200-239 MG/DL High-Risk: 240 MG/DL and over 93 HDL INTERPRETATION: Undesirable: High Risk: Less than 40 MG/DL Desirable: Low Risk: Greater than 60 MG/DL 94 LDL INTERPRETATION: Low Risk Optimal Level: LDL Less than 100 MG/DL Near or Above Optimal: LDL 100-129 MG/DL Borderline High Risk: LDL 130-159 MG/DL High Risk: LDL 160-189 MG/DL Very High Risk: LDL Greater than 189 MG/DL 95 Anion gap measurement may be of limited value in the presence of any alkalosis, especially in a combined acid base disorder. . 96 Please note change in reference range effective 08 . 97 Anion gap measurement may be of limited value in the presence of any alkalosis, especially in a combined acid base disorder. . 98 Classification: Desirable . 99 Classification: Low . 100 CALCULATED LDL APPROXIMATES THE VALUE OF A DIRECT LDL MEASUREMENT. Classification: Optimal Level . 101 Anion gap measurement may be of limited value in the presence of any alkalosis, especially in a combined acid base disorder. . 102 Classification: Desirable . 103 Classification: Low . 104 CALCULATED LDL APPROXIMATES THE VALUE OF A DIRECT LDL MEASUREMENT. Classification: Optimal Level . 105 Classification: Desirable . 106 Classification: Low . 107 CALCULATED LDL APPROXIMATES THE VALUE OF A DIRECT LDL MEASUREMENT. Classification: Optimal Level . 108 Anion gap measurement may be of limited value in the presence of any alkalosis, especially in a combined acid base disorder. . 109 Classification: Desirable . 110 Classification: Low . 111 CALCULATED LDL APPROXIMATES THE VALUE OF A DIRECT LDL MEASUREMENT. Classification: Optimal Level . 112 Anion gap measurement may be of limited value in the presence of any alkalosis, especially in a combined acid base disorder. . 113 Anion gap measurement may be of limited value in the presence of any alkalosis, especially in a combined acid base disorder. . Procedures Date CPT Code Description Status 08/02/2017 66513 EKG Tracing & Interpretation Completed 06/12/2017 06543 ECHO Transthoracic, Real-Time 2D With Doppler And Color Completed Flow 05/30/2017 02049 Biopsy External Ear Completed 05/30/2017 06373 Dest Lesion Each Addl Lesion 2 Through 14 Each Completed 05/30/2017 63896 Destruction ALL Benign Or Premalignant Lesion (Other Completed Than [place] 05/15/2017 98156 EKG Tracing & Interpretation Completed 01/26/2017 13328 EKG Tracing & Interpretation Completed 01/09/2017 36123 Holter Monitor Review (24 hr) review & interp Completed only 01/09/2017 95051 EKG Tracing & Interpretation Completed 01/05/2017 16383 Holter Monitor Review (24 hr) review & interp Completed only 01/05/2017 68883 ECG Monitor/Recording W/Visual Superimposition Scanning Completed 01/04/2017 72827 ECG Monitor/Recording W/Visual Superimposition Scanning Completed 12/29/2016 78871 Color Flow Doppler/Interp & Reprt Completed 12/29/2016 98623 Pulse Wave/Continuous-Interp.RPT Completed 12/29/2016 23135 Echocardiography, Transesophageal, Real Time W/Image 2D Completed W/W/O M-M 11/27/2016 06552 EKG Tracing & Interpretation Completed 07/14/2016 87291 ECHO Transthoracic, Real-Time 2D With Doppler And Color Completed Flow 07/04/2016 93620 EKG Tracing & Interpretation Completed 12/31/2015 22796 Stress Test Completed 12/31/2015 45006 Myocardial Perfusion Imaging Tomographic (Spect) Completed Multiple Studies 12/31/2015 70756 Myocardial Perfusion Imaging Tomographic (Spect) Completed Multiple Studies 12/13/2015 82438 Holter Monitor Review (24 hr)dr toro & iram Completed only 12/06/2015 97057 EKG Tracing & Interpretation Completed 11/15/2015 78199 ECHO Transthorasic Realtime 2D W Doppler & Color Completed Flow [facility] 11/04/2015 96075 EKG Tracing & Interpretation Completed 04/28/2015 33695 EKG Tracing & Interpretation Completed 03/29/2015 54022 EKG Tracing & Interpretation Completed 03/29/2015 82670 EKG Tracing & Interpretation Completed 01/21/2015 07667 ECHO Transthoracic, Real-Time 2D With Doppler And Color Completed Flow 01/19/2015 45670 Holter Monitor Review (24 hr)dr toro & iram Completed only 01/11/2015 87996 EKG Tracing & Interpretation Completed 11/16/2014 07150 EKG Tracing & Interpretation Completed 09/04/2014 01427 ECHO Transthoracic, Real-Time 2D With Doppler And Color Completed Flow 06/10/2014 43550 EKG Tracing & Interpretation Completed 11/20/2013 43855 ECHO Stress Test Incl Perf Contiuous ekg Monitoring Completed W/Phys Superv 11/20/2013 95464 ECHO Stress Test Incl Perf Contiuous ekg Monitoring Completed W/Phys Superv 10/29/2013 61347 EKG Tracing & Interpretation Completed 08/04/2013 41813 ECHO Stress Test Incl Perf Contiuous ekg Monitoring Completed W/Phys Superv 08/04/2013 69172 ECHO Stress Test Incl Perf Contiuous ekg Monitoring Completed W/Phys Superv 07/22/2013 48574 Holter Monitoring 24 HR New Completed 06/30/2013 00419 ECHO Transthoracic, Real-Time 2D With Doppler And Color Completed Flow 06/25/2013 60977 EKG Tracing & Interpretation Completed 09/25/2012 04446 EKG Tracing & Interpretation Completed 06/12/2012 72821 EKG Tracing & Interpretation Completed 05/16/2012 82651 ECHO Transthoracic, Real-Time 2D With Doppler And Color Completed Flow 01/22/2012 73805 EKG Tracing & Interpretation Completed 08/17/2011 24752 EKG Tracing & Interpretation Completed 06/28/2011 49105 Mobile Cardiovascular Telemetry Over 24 HR Up To 30 Completed Days 06/07/2011 24149 ECHO Stress Test Incl Perf Contiuous ekg Monitoring Completed W/Phys Superv 05/22/2011 76461 Holter Monitoring 24 HR New Completed 05/05/2011 21218 EKG Tracing & Interpretation Completed 11/22/2010 88616 Treadmill Interp/Report Only Completed 11/22/2010 61162 Stress Test Supervsn W/Out I/R Completed 07/19/2010 82382 EKG Tracing & Interpretation Completed 09/06/2009 26146 EKG Tracing & Interpretation Completed 02/09/2009 66610 EKG Tracing & Interpretation Completed 11/27/2008 21388 EKG Tracing & Interpretation Completed 05/22/2008 26714 EKG Tracing & Interpretation Completed 05/22/2008 78215 EKG Tracing & Interpretation Completed 04/28/2008 25037 Stress Test Supervsn W/Out I/R Completed 04/28/2008 31973 Stress Test Supervsn W/Out I/R Completed 04/28/2008 04068 Treadmill Interp/Report Only Completed 2008 40224 EKG Tracing & Interpretation Completed 2008 07852 EKG Tracing & Interpretation Completed 03/04/2008 51200 ECHO/Stress Completed 03/04/2008 81482 ECHO/Stress Completed 03/04/2008 73088 ECHO/Stress Completed 03/04/2008 43987 Stress Test Completed 03/04/2008 56529 Stress Test Completed 01/10/2008 50128 EKG Tracing & Interpretation Completed 01/10/2008 18558 EKG Tracing & Interpretation Completed 12/31/2006 76029 EKG Tracing & Interpretation Completed 08/15/2006 90435 EKG Tracing & Interpretation Completed 07/03/2006 04599 Color Flow Doppler/Interp & Reprt Completed 07/03/2006 84570 Color Flow Doppler/Interp & Reprt Completed 07/03/2006 96118 Echocardiography, Transesophageal, Real Time W/Image 2D Completed W/W/O M-M 06/13/2006 69429 EKG Tracing & Interpretation Completed 06/13/2006 59007 EKG Tracing & Interpretation Completed 05/09/2006 61480 Color Doppler Completed 05/09/2006 84499 Pulse Doppler & Continuous Wave Completed 05/09/2006 51807 Pulse Doppler & Continuous Wave Completed 05/09/2006 10356 Echocardiogram Completed 05/12/2005 19846 Stress Test Completed 05/12/2005 98737 ECHO/Stress Completed 04/18/2005 09017 Color Doppler Completed 04/18/2005 40719 Pulse Doppler & Continuous Wave Completed 04/18/2005 87376 Echocardiogram Completed 04/13/2005 05345 EKG Tracing & Interpretation Completed 04/22/2004 79687 EKG Tracing & Interpretation Completed 03/26/2003 98215 ECHO/Stress Completed 03/26/2003 49304 Stress Test Completed 03/10/2003 77893 Color Doppler Completed 03/10/2003 73557 Pulse Doppler & Continuous Wave Completed 03/10/2003 70901 Echocardiogram Completed 02/20/2003 32449 EKG Tracing & Interpretation Completed Encounters Type Date Location Provider CPT E/M Dx Office Visit 08/02/2017 3:00p [facility] Philip Lance 99091 I35.0 Maykel I71.2 I25.10 I49.5 E78.00 R06.00 Office Visit 05/30/2017 2:00p [facility] [address] L82.1 C44.229 L57.0 Office Visit 05/15/2017 10:20a [facility] Philip Lance M.D. 94136 R42 I35.0 I25.10 I71.2 I49.5 I25.2 R94.31 I10 Office Visit 01/30/2017 2:00p [facility] [place] [address] I10 Office Visit 01/26/2017 11:00a [facility] JUSTYNA Malik 33379 I10 I35.0 I49.3 R06.02 Office Visit 01/09/2017 1:20p [facility] Philip Lance M.D. 49442 I10 R42 I35.0 R94.31 I25.10 Office Visit 12/29/2016 8:00a [facility] Philip Lance M.D. 37131 I35.0 I10 I25.10 Office Visit 12/07/2016 1:00p [facility] [place] [address] I10 Office Visit 11/27/2016 9:30a [facility] JUSTYNA Malik 34905 R42 I35.0 I10 Office Visit 07/19/2016 11:00a [facility] JUSTYNA Malik 52234 I35.0 I25.10 I10 E78.5 Office Visit 07/04/2016 10:20a [facility] Philip Lance, 08788 I25.10 M.D. I10 E11.9 E78.5 I25.5 I35.0 Office Visit 02/07/2016 9:30a [facility] JUSTYNA Malik 32085 I25.10 I10 I35.0 E11.9 E78.5 Office Visit 12/13/2015 9:15a [facility] [place] [address] I10 Office Visit 12/06/2015 9:00a [facility] JUSTYNA Malik 24090 R42 I25.10 I35.0 E11.9 I10 R09.02 Office Visit 11/16/2015 4:06p [facility] [address] R42 Hospitalists I25.10 R79.89 Office Visit 11/16/2015 2:14p [facility] Of Helder Hammond 70626 I25.10 [facility] MAiramDAiram I35.0 Office Visit 11/15/2015 4:05p [facility] Rachel Hardin, N.P. 53467 R42 Hospitalists I25.10 R79.89 Office Visit 11/04/2015 10:00a [facility] JUSTYNA Malik 13249 G11.1 R42 I10 I35.0 N64.9 Office Visit 07/27/2015 10:30a [facility] Jose De Luna, 64231 I63.8 MDario G11.1 Office Visit 05/03/2015 10:45a [facility] Jose De Luna, 98082 781.2 MDario 334.3 434.91 Office Visit 04/28/2015 10:00a [facility] Philip Lance M.D. 75372 780.4 781.2 401.9 424.1 424.0 Office Visit 04/09/2015 10:00a [facility] Jose JudyAiram De Luna, 76308 780.4 Maykel 434.91 334.3 787.01 781.2 Office Visit 04/02/2015 2:30p [facility] Nurse Visit 85147 401.9 Office Visit 03/29/2015 3:00p [facility] Philip Lance M.D. 63258 424.1 441.9 424.0 401.9 Office Visit 03/10/2015 3:40p [facility] Philip Lance 35185 424.1 [place] 441.9 414.01 424.0 401.9 386.2 Office Visit 01/28/2015 1:30p [facility] JUSTYNA Malik 28305 441.9 424.1 414.01 424.0 780.4 401.1 Office Visit 01/11/2015 1:30p [facility] JUSTYNA Malik 42874 441.9 424.0 424.1 401.1 414.01 780.4 780.79 Office Visit 11/16/2014 11:00a [facility] Philip Lance M.D. 49907 441.9 401.1 424.1 414.01 424.0 Office Visit 08/31/2014 11:00a [facility] Jose Dixon, 92601 722.10 Of [place] Office Visit 06/10/2014 2:20p [facility] Philip Campo 11643 441.9 Maykel Lance 401.1 424.1 414.01 424.0 Office Visit 02/10/2014 3:30p [facility] JUSTYNA Malik 29204TFY 401.1 441.9 424.1 414.01 Office Visit 12/31/2013 1:30p [facility] JUSTYNA Malik 70937 401.1 786.05 441.9 799.02 Office Visit 12/15/2013 2:30p [facility] JUSTYNA Malik 56136 424.1 401.1 414.01 441.9 786.05 Office Visit 11/20/2013 2:30p [facility] Philip Lance M.D. 11110 424.1 424.0 427.32 272.0 Office Visit 11/20/2013 2:00p [facility] ECHO Schedule 46487 401.1 414.01 786.05 Office Visit 10/29/2013 10:20a [facility] Philip Lance M.D. 31341 424.1 424.0 427.32 401.1 272.0 414.04 Office Visit 08/04/2013 10:30a [facility] Philip Lance M.D. 30899 424.1 424.0 412 780.4 Office Visit 07/11/2013 8:30a [facility] Nurse Visit 84090 401.1 Office Visit 06/25/2013 10:40a [facility] Philip Lance M.D. 09732 272.0 424.0 424.1 Office Visit 11/04/2012 10:30a [facility] Philip Lance M.D. 80655 424.0 272.0 412 401.1 Office Visit 09/25/2012 11:20a [facility] Philip Lance M.D. 86551 272.0 424.0 424.1 412 Office Visit 06/12/2012 10:20a [facility] Philip Lance M.D. 49083 424.0 272.0 424.1 412 Office Visit 02/06/2012 11:00a [facility] 33504 401.1 [facility] Office Visit 01/22/2012 3:20p [facility] Philip Lance 72541 424.0 [facility] Maykel 424.1 401.1 272.0 Office Visit 09/14/2011 1:15p [facility] Nurse Visit 91827 401.1 Office Visit 08/17/2011 2:00p [facility] Philip Lance M.D. 51128 401.1 424.0 412 Office Visit 06/20/2011 9:30a [facility] [place] [address] 427.32 401.1 780.79 Office Visit 06/07/2011 2:30p [facility] Philip Lance M.D. 35961 424.1 401.1 414.8 412 Office Visit 05/12/2011 8:15a [facility] [place] [address] 401.1 Office Visit 05/05/2011 11:00a [facility] Philip Lance M.D. 13104 414.8 401.1 780.4 Office Visit 07/19/2010 2:20p [facility] Philip Lance M.D. 65380 424.0 424.1 414.01 401.1 272.0 Office Visit 09/06/2009 10:00a [facility] Philip Lance M.D. 24745 401.1 424.0 414.01 272.0 Office Visit 05/07/2009 11:00a [facility] Philip Lance M.D. 20217 401.1 424.0 424.1 414.01 272.0 Office Visit 03/12/2009 9:30a [facility] [place] [address] 401.1 Office Visit 02/09/2009 3:40p [facility] Philip Lance M.D. 97118 401.1 424.0 424.1 414.01 Office Visit 12/25/2008 10:30a [facility] [place] [address] 401.1 Office Visit 11/27/2008 10:00a [facility] Philip Lance 98041 414.01 M.D. 424.0 401.0 Office Visit 08/07/2008 11:20a [facility] Philip Lance 71921 414.01 M.D. 424.0 401.1 424.1 412 Office Visit 05/22/2008 2:40p [facility] Philip Lance 36974 414.01 M.D. 424.0 401.1 424.1 Office Visit 2008 11:00a [facility] Philip Lance 83425 414.01 M.D. 401.1 441.2 Office Visit 01/10/2008 3:00p [facility] Philip WittAiram [place], 35274 414.01 M.D. 401.1 272.0 441.2 424.0 Office Visit 12/31/2006 3:00p [facility] Philip Campo [place], 17180 414.01 M.D. 401.1 272.0 441.2 Office Visit 08/15/2006 2:00p [facility] Philip WittAiram [place], 84139 414.01 M.D. 401.1 441.2 Office Visit 07/12/2006 9:00a [facility] Philip WittAiram [place], 83810 414.01 M.D. 441.2 Office Visit 06/13/2006 9:40a [facility] Philip WittAiram [place], 62345 414.01 M.D. 401.1 272.0 Office Visit 04/13/2005 10:20a [facility] Philip EduarAiram Lance, 50227 414.01 M.D. 412 424.1 Office Visit 04/22/2004 1:40p [facility] Philip WittAiram [place], 37969 414.01 M.D. 401.1 412 272.0 Office Visit 02/20/2003 9:20a [facility] Philip WittAiram [place], 13866 414.01 M.D. 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 1. Please continue Torsemide 20 mg TOTAL daily=1/2 tablet twice a day with first dose in am, second dose after lunchFollow up:Followup with TE last week of . Shortness of breath
--- OUTSIDE RECORDS SUMMARY | 2017-08-28 11:21 | XMS REPORT ---
:1930 External Reference #:[id number] Author Organization [facility] Address [address] [address] Phone [phone] Care Team Providers Name Role Phone Lance Rubi MD Primary Care Physician Unavailable Payers Type Date Identification Numbers Payment Subscriber Provider Health Maintenance Effective: Policy Number: Medicare Blue Zane Phipps ([facility]) 09/03/2013 [id number] o Expires: 09/02/2014 Group Number: [id number] [address] [address] PayID: [id number] DALIA Martinez [id number] Health Maintenance Expires: Policy Number: [facility] Medicare Zane Phipps (O) 09/02/2016 [id number] Richardson Sanders Group Number: [id number] [address] [address] PayID: [id number] [place] [address] Medigap Part B Effective: 03/03/1994 Policy Number: Medicare Donald E Denman [id number] Expires: 09/03/2013 PayID: [id number] [address] [place] [address] Medigap Part B Effective: 09/03/2012 Policy Number: [facility] Zane Sanders [id number] Expires: 09/03/2013 PayID: [id number] [address] [address] DALIA Martinez [address] Medigap Part B Expires: 03/08/2008 Policy Number: [employer] Zane De Los Santos [id number] Marilyn Group Number: [id number] [address] PayID: [id number] [place] [address] [place]ise[place] Part B Effective: 03/09/2008 Policy Number: [facility] CHADD Zane Sanders [id number] Expires: 09/02/2012 PayID: [id number] [address] [address] DALIA Martinez [address] Medigap Part B Effective: 09/03/2016 Policy Number: [employer] Medicare Zane Sanders [id number] Group Number: [id number] [address] PayID: [id number] [place] [address] Problems Date Description Provider Status Onset: 06/16/2011 Benign essential hypertension Philip Lance M.D. Active Onset: 01/22/2012 Mitral valve disorder Philip Lance M.D. Active Onset: 01/22/2012 Aortic valve disorder Philip Lance M.D. Active Onset: 01/22/2012 Pure hypercholesterolemia Philip Lance M.D. Active Onset: 09/25/2012 Old myocardial infarction Philip Lance M.D. 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 Family History Date Family Member(s) Problem(s) Comments General Stroke : (age 88 Years) Father due to [place] : (age 95 Years) Mother due to Hypertension Social History Type Date Description Comments Marital Status Lives With Alone Occupation Retired ETOH Use Consumes liquor once daily Smoking Patient has never smoked Recreational Drug Use Never Used Drugs Daily Caffeine Consumes on average 3 cups of regular coffee per day Daily Caffeine consumes chocolate occasionally Exercise Type/Frequency Exercises regularly General Hx Text Allergies, Adverse Reactions, Alerts Date Description Reaction Status Severity Comments 02/20/2003 Codeine Upset Stomach active Moderate causes upset stomach 02/09/2009 Atenolol psoriasis active 04/09/2015 Cartia XT Constipation active Moderate Medications Medication Date Status Form Strength Qnty SIG Indications Ordering Provider Torsemide 08/02 Active Tablets 20mg 30tab 1 by mouth s every day Jahaira Lance M.D. Blood Pressure 11/27 Active Misc 1unit for upper Philip Monitor s arm. FAiram Inflate dispense 1 lay Lance M.D. directed Coq10 07/04 Active Capsules 200mg 90cap 1 by mouth E78.5 Qutaybeh s every day SAiram ( pt does Maghaydah not take) Maykel Potassium Chloride 10/27 Active Tablets 20Meq 45tab 1 tablet Philip ER ER s every F. other day Maykel Lance Carvedilol 03/29 Active Tablets 3.125mg 90tab 1/2 tab by s mouth F. twice a Casi, mayra Brar Fish Oil OTC 07/30 Active Capsules 1000mg [...] Unknown Daily Atorvastatin Active Tablets 10mg 45tab 1/2 by Philip Calcium s mouth F. every day Maykel Lance Metformin HCL Active Tablets 500mg 1 by mouth Unknown twice a day Amlodipine Active Tablets 2.5mg 270ta 1 tablet Besylate bs daily F. (hold as Casi Maykel ) Furosemide 08/02 Hx Tablets 20mg 1 tab by mouth as F. - directed Casi, 08/02 as needed M.D. for weight of 186lbs or more Furosemide 01/30 Hx Tablets 20mg 30tab 1 tab by s mouth as F. - directed Casi, 08/02 as needed M.D. for weight of 186lbs or more Aldactone 10/27 Hx Tablets 25mg 90tab 1 by mouth s every day F. - Mauser, 11/03 M.D. Eplerenone 03/29 Hx Tablets 25mg 100ta 1 by mouth bs every day F. - Mauser, 06/29.D. Diltiazem CD 03/10 Hx Caps ER 120mg 200ca 1 by mouth 24HR ps twice a F. - day user, 03/29 (stopped .. taking 03/19/15) Spironolactone 03/01 Hx Tablets 25mg 30tab 1 by mouth s every day F. - Mauser, 03/29.D. Diltiazem HCL ER 01/04 Hx Caps ER 120mg 100ca 1 cap po 24HR ps daily - F. - decreased Mauser, 03/1001/28/15 M.D. Lipitor 07/22 Hx Tablets 10mg 90tab 1 by mouth s every F. - night at user, 07/27 bedtime M.D. Eplerenone 06/10 Hx Tablets 25mg 100ta 1 tablet bs po daily F. - Mauser, 03/01.D. Oxygen 03/29 Hx Misc Discontinu 799.02 e 2 l nc F. - at bedtime Mauser, 01/27.D. Eplerenone 01/19 Hx Tablets 25mg 30tab take 09/04 s tablet by F. - mouth Mauser, 06/10 daily M.D. replaces hctz Klor-Con M20 01/08 Hx Tablets 20Meq 30tab 1 tab by ER s mouth on F. - odd days Mauser, 04/03 M.D. Oxygen 12/31 Hx Misc 2L NC use 799.02 Overnight nightly Selina, - with nasal M.D. 03/29 cannula secondary to hypoxemia >19 minutes oxygen saturation <90% during sleep, lowest 81% Hydrochlorothiazid 12/31 Hx Tablets 25mg 30tab Take 1 tab 401.1 s po daily F. - Mauser, 01/19.D. Carvedilol 12/15 Hx Tablets 3.125mg 180ta take 1 tab 786.05 bs by mouth F. - twice a Mauser, 01/27 day M.D. Diltiazem CD 11/20 Hx Caps ER 120mg 100ca 1 by mouth 24HR ps every day F. - Mauser, 01/04.D. Diltiazem CD 06/25 Hx Caps ER 120mg 200ca 2 po qd 24HR ps . - Mauser, 11/20. Crestor 09/25 Hx Tablets 5mg 45tab 1 by mouth s every day F. - on odd Mauser, . . Crestor 07/15 Hx Tablets 5mg 30tab 1 po qd s F. - Mauser, 09/25.D. Crestor 07/02 Hx Tablets 20mg 30tab 1 po qd s F. - Mauser, 07/15.D. Diovan 01/21 Hx Tablets 80mg 30tab 1 po qd s F. - Mauser, 01/21. Diovan 01/21 Hx Tablets 80mg 100ta 1/2 po qd bs F. - Mauser, 06/12.. Aldactone 09/14 Hx Tablets 25mg 45tab 1/2 po s qd(on hold F. - as of user, 12/3111/21/13) .D. Diltiazem CD 08/25 Hx Caps ER 120mg 270ca 3 po qd 24HR ps F. - Mauser, 06/25.D. Diovan 08/09 Hx Tablets 80mg 30tab 1 po qd s F. - Mauser, 01/21.D. Altace 06/21 Hx Capsules 5mg 30cap 1 [...] M.D. Crestor 05/05 Hx Tablets 10mg 45tab 09/04 po qd s F. - Mauser, 07/02 M.D. Altace 04/25 Hx Capsules 5mg 30cap 1 po qd s F. - Mauser, 05/16 M.D. Crestor 08/18 Hx Tablets 10mg 30tab 1 po qd s F. - Mauser, 05/05 M.D. Norvasc 01/26 Hx Tablets 10mg 90tab 09/06 tab [...] po qd F. - Mauser, 11/15 M.D. Altace 11/27 Hx Capsules 10mg 30cap 1/2 by s mouth F. - every Mauser, 04/25 day(5 mg) M.D. /2010 Norvasc 11/27 Hx Tablets 2.5mg 180ta 2 po qd bs F. - Mauser, 01/26 M.D. Atenolol 11/27 Hx Tablets 25mg 1 po qod until F. - 12/15/08 Mauser, 12/25 and then .D. /2008 discontinu e Altace 08/07 Hx Capsules [...] 24HR ts F. - Mauser, 05/22 on .. in the am, off in the pm Altace 01/09 Hx Capsules 10mg 90cap 1 po qd s F. - Mauser, 05/22 M.D. Norvasc 01/09 Hx Tablets 2.5mg 90tab 1 po qd s F. - Mauser, 08/07 M.D. Lipitor 11/26 Hx Tablets 80mg 90tab 1 po qhs s F. - Mauser, 02/09 M.D. Lipitor 01/15 Hx Tablets 40mg 30tab 1 PO qd s F. - Mauser, 11/26 M.D. Zetia 01/15 Hx Tablets 10mg 90tab 1 po qd Jahaira Lance, 09/27 M.D. Lipitor 11/13 Hx Tablets 80mg 90tab 1 po qd Jahaira Lance, 01/15 M.D. Norvasc 07/12 Hx Tablets 10mg 1 po qd FAiram Lance, 07/12 M.D. Norvasc 07/12 Hx Tablets [...] Hx Tablets 80mg 30tab 1 po qd Jahaira Lance, 07/18 M.D. KCL 05/05 Hx Tablets 20Meq 30tab one po qd Jahaira Lance, 06/20 M.D. /2004 Triamterene & 10/15 Hx Capsules 25mg;37.5 90cap 1 po qd Philip HCTZ /2003 mg s F. - Casi, 07/12 M.D. HCTZ 02/20 Hx 25mg 30uni migdalia Lance, 02/14 M.D. Aspirin - Buffered 02/19 Hx Tablets 325mg 100ta 09/04 po qd bs Jahaira Lance, 10/29 M.D. /2013 Altace 02/19 Hx 20mg 30uni one qd migdalia Lance, 01/09 M.D. /2007 Atenolol 02/19 Hx Tablets 25mg 90tab take one s tablet F. - daily Casi, 07/12 M.D. /2005 HCTZ 02/19 Hx 25mg 90uni 1 PO qd migdalia Lance, 02/20.D. Norvasc 02/19 Hx Tablets 5mg 30tab one qd s Jahaira - Casi, 07/12 M.D. Lipitor 02/19 Hx Tablets 40mg 30tab one qd s Jahaira Lance, 05/05 M.D. Diuretic pt unsure 02/19 Hx 37.5/25 30uni one qd Philip name of /2002 migdalia Lance, 04/22 M.D. Tylenol 8 Hour Hx Tablets 650mg 1tabs prn Unknown /0000 ER - 08/17 Vitamin D-1000 Hx Tablets 1000Unit 90tab 1 po qd Unknown /0000 s - 08/31 ` Hx Ointment 0.05% 50gm apply tid Unknown /0000 for - psoriasis 06/25 prn /2012 Brilinta Hx Tablets 90mg 60tab 1 tab by Other /0000 s mouth Ordering - twice a Provider /2013 Gabapentin Hx Capsules 100mg 90cap 1 po qhs Unknown /0000 s prn - 04/03 Cartia XT Hx Caps ER 120mg 1 cap po Unknown 0000 24HR b.i.d - 01/27 Potassium Chloride Hx Tablets 20Meq 1 tablet Philip /0000 ER every F. - other day Casi, 10/27 M.D. Medications Administered in Office Medication [...] Millicuries Vital Signs Date Vital Result Comment 08/02/2017 Height 73 inches 6'1" Weight 192.00 [...] Test Date Test Result H/L Range Note Laboratory test 01/30/2017 B-Type Natriuretic 621 pg/mL High 1 finding Peptide BNP CBC Auto Diff 01/30/2017 White Blood Count [...] 0-2 Nucleated Red Blood Cells % 0 Laboratory test finding 01/30/2017 Magnesium 1.9 mg/dL 1.9-2.7 2 Basic Metabolic Panel 01/30/2017 Sodium 139 mmol/L 133-145 Potassium 4.1 mmol/L 3.5-5.0 Chloride 104 mmol/L 101-111 Co2 Carbon Dioxide 28 mmol/L 22-32 Anion Gap 7 mmol/L 2-11 Glucose 131 mg/dL High 70-100 Blood Urea Nitrogen 21 mg/dL 6-24 Creatinine 1.05 mg/dL 0.67-1.17 BUN/Creatinine Ratio 20.0 8-20 Calcium 9.1 mg/dL 8.6-10.3 Egfr Non- 66.8 >60 Egfr 85.9 >60 3 Lipid Panel - [facility] 02/08/2016 Creatine Kinase(CK) 96 U/L 10-223 4 Comp Metabolic Panel 02/08/2016 Sodium 139 mmol/L [...] Egfr Non- 69.2 >60 Egfr 89.1 >60 5 Lipid Profile (Trig/Chol/HDL) 02/08/2016 Triglycerides 131 mg/dL 6 Cholesterol 146 mg/dL 7 HDL Cholesterol 44.2 mg/dL 8 LDL Cholesterol 76 mg/dL 9 Laboratory test finding 04/16/2015 Blood Urea Nitrogen BUN 22 mg/dL 6-24 TSH (Thyroid Stim Horm) 3.25 ?IU/mL 0.34-5.60 Creatinine 04/16/2015 Creatinine 1.15 mg/dL 0.67-1.17 Egfr Non- 60.3 >60 Egfr 77.5 >60 10 CBC Auto Diff 01/12/2015 White Blood Count [...] Egfr Non- 65.0 >60 Egfr 83.6 >60 11 Vitamin B12 And Folate Serum 01/12/2015 Vitamin B12 546 pg/mL 180-914 12 Folic Acid (Folate) > 20.00 ng/mL >3.99 Laboratory test finding 01/12/2015 Creatine Kinase(CK) 102 U/L 10-223 B-Type Natriuretic Peptide BNP 176 pg/mL 13 Magnesium 2.0 mg/dL 1.9-2.7 Order 09/04/2014 Echocardiogram <pending> Basic Metabolic Panel 07/20/2014 Sodium 134 mmol/L 133-145 Potassium 4.3 mmol/L 3.5-5.0 14 Chloride 99 mmol/L Low 101-111 Co2 Carbon Dioxide 29 mmol/L 22-32 Anion Gap 6 mmol/L 2-11 Glucose 235 mg/dL High 70-100 Blood Urea Nitrogen 21 mg/dL 6-24 Creatinine 1.14 mg/dL 0.67-1.17 BUN/Creatinine Ratio 18.4 8-20 Calcium 9.1 mg/dL 8.6-10.3 Egfr Non- 61.1 >60 Egfr 78.5 >60 15 CBC Auto Diff 07/06/2014 White Blood Count [...] Blood Cells % 0 Basic Metabolic Panel 07/06/2014 Sodium 136 mmol/L 133-145 Potassium 3.7 mmol/L 3.5-5.0 Chloride 101 mmol/L 101-111 Co2 Carbon Dioxide 29 mmol/L 22-32 Anion Gap 6 mmol/L 2-11 Glucose 177 mg/dL High 70-100 Blood Urea Nitrogen 20 mg/dL 6-24 Creatinine 1.07 mg/dL 0.67-1.17 BUN/Creatinine Ratio 18.7 8-20 Calcium 9.3 mg/dL 8.6-10.3 Egfr Non- 65.7 >60 Egfr 84.5 >60 16 Laboratory test finding 07/06/2014 Magnesium 1.9 mg/dL 1.9-2.7 Lipid Profile (Trig/Chol/HDL) 04/20/2014 Triglycerides 169 mg/dL 17, 18 Cholesterol 169 mg/dL 17, 19 HDL Cholesterol 44.3 mg/dL 17, 20 LDL Cholesterol 91 mg/dL 17, 21 Comp Metabolic Panel 04/20/2014 Sodium 139 mmol/L 133-145 17 Potassium 4.3 mmol/L 3.7-5.6 17 Chloride 104 mmol/L 101-111 17 Co2 Carbon Dioxide 30 mmol/L 22-32 17 Anion Gap 5 mmol/L 2-11 17 Glucose 137 mg/dL High 70-100 17 Blood Urea Nitrogen 16 mg/dL 6-24 17 Creatinine 1.17 mg/dL 0.67-1.17 17 BUN/Creatinine Ratio 13.7 8-20 17 Calcium 9.3 mg/dL 8.6-10.3 17 Total Protein 7.3 g/dL 6.4-8.9 17 Albumin 3.8 g/dL 3.2-5.2 17 Globulin 3.5 g/dL 2-4 17 Albumin/Globulin Ratio 1.1 1-3 17 Total Bilirubin 0.50 mg/dL 0.2-1.0 17 Alkaline Phosphatase 71 U/L 34-104 17 Alt 22 U/L 7-52 17 Ast 20 U/L 13-39 17 Egfr Non- 59.2 >60 17 Egfr 76.2 >60 17, 22 Lipid Panel - [facility] 04/20/2014 Creatine Kinase 112 U/L 10-223 17, 23 Basic Metabolic Panel 02/05/2014 Sodium 138 mmol/L 133-145 Potassium 4.1 mmol/L 3.7-5.6 Chloride 104 mmol/L 101-111 Co2 Carbon Dioxide 29 mmol/L 22-32 Anion Gap 5 mmol/L 2-11 Glucose 111 mg/dL High 70-100 Blood Urea Nitrogen 17 mg/dL 6-24 Creatinine 1.15 mg/dL 0.67-1.17 BUN/Creatinine Ratio 14.8 8-20 Calcium 9.3 mg/dL 8.6-10.3 Egfr Non- 60.6 >60 Egfr 77.9 >60 24 Basic Metabolic Panel 01/16/2014 Sodium 139 mmol/L 133-145 25 Potassium 3.5 mmol/L Low 3.7-5.6 25 Chloride 102 mmol/L 101-111 25 Co2 Carbon Dioxide 30 mmol/L 22-32 25 Anion Gap 7 mmol/L 2-11 25 Glucose 190 mg/dL High 70-100 25 Blood Urea Nitrogen 20 mg/dL 6-24 25 Creatinine 1.12 mg/dL 0.67-1.17 25 BUN/Creatinine Ratio 17.9 8-20 25 Calcium 8.7 mg/dL 8.6-10.3 25 Egfr Non- 62.5 >60 25 Egfr 80.3 >60 25, 26 Basic Metabolic Panel 01/08/2014 Sodium 138 mmol/L 133-145 Potassium 3.3 mmol/L Low 3.7-5.6 Chloride 102 mmol/L 101-111 Co2 Carbon Dioxide 29 mmol/L 22-32 Anion Gap 7 mmol/L 2-11 Glucose 126 mg/dL High 70-100 Blood Urea Nitrogen 18 mg/dL 6-24 Creatinine 1.10 mg/dL 0.67-1.17 BUN/Creatinine Ratio 16.4 8-20 Calcium 9.2 mg/dL 8.6-10.3 Egfr Non- 63.8 >60 Egfr 82.0 >60 27 CBC Auto Diff 10/29/2013 White Blood Count [...] Lipid Profile (Trig/Chol/HDL) 10/29/2013 Triglycerides 166 mg/dL 28 Cholesterol 154 mg/dL 29 HDL Cholesterol 46.9 mg/dL 30 LDL Cholesterol 74 mg/dL 31 Laboratory test finding 10/29/2013 B Type Natriuretic Peptide 73 pg/mL 32 Creatine Kinase 100 U/L 10-223 Comp Metabolic Panel 10/29/2013 Sodium 138 mmol/L [...] Egfr Non- 55.5 >60 Egfr 71.4 >60 33 Basic Metabolic Panel 10/17/2013 Sodium 138 mmol/L 133-145 Potassium 4.1 mmol/L 3.7-5.6 Chloride 103 mmol/L 101-111 Co2 Carbon Dioxide 27 mmol/L 22-32 Anion Gap 8 mmol/L 2-11 Glucose 116 mg/dL High 70-100 Blood Urea Nitrogen 23 mg/dL 6-24 Creatinine 1.26 mg/dL High 0.67-1.17 BUN/Creatinine Ratio 18.3 8-20 Calcium 9.4 mg/dL 8.6-10.3 Egfr Non- 54.5 >60 Egfr 70.1 >60 34 Lipid Panel - [facility] 07/29/2012 Creatine Kinase 118 U/L 0-200 35 Comp Metabolic Panel 07/29/2012 Sodium 138 mmol/L [...] 1.3 1-3 Total Bilirubin 0.5 mg/dL 0.1-1.0 36 Alkaline Phosphatase 75 U/L 30-110 Alt 46 U/L 14-54 Ast 33 U/L 12-42 Egfr Non- 52.7 >60 Egfr 67.8 >60 37 Lipid Profile (Trig/Chol/HDL) 07/29/2012 Triglycerides 282 mg/dL High 40- 200 Cholesterol 195 mg/dL Less than 200 HDL Cholesterol 46 mg/dL 40-60 38 Cholesterol/HDL Ratio 4.2 AVERAGE 1-4.44 LDL Cholesterol 92.6 mg/dL Less Than 100 39 Comp Metabolic Panel 06/14/2012 Sodium 138 mmol/L [...] 1.3 1-3 Total Bilirubin 0.6 mg/dL 0.1-1.0 40 Alkaline Phosphatase 84 U/L 30-110 Alt 34 U/L 14-54 Ast 26 U/L 12-42 Egfr Non- 63.9 >60 Egfr 82.2 >60 41 Lipid Profile (Trig/Chol/HDL) 06/14/2012 Triglycerides 235 mg/dL High 40- 200 Cholesterol 191 mg/dL Less than 200 42 HDL Cholesterol 49 mg/dL 40-60 43 Cholesterol/HDL Ratio 3.9 AVERAGE 1-4.44 LDL Cholesterol [...] mmol/L 22-32 Anion Gap 5.0 mmol/L 2-11 44 Glucose 133 mg/dL High 70-100 BUN 21 mg/dL 6-24 Creatinine 1.1 mg/dL 0.50-1.40 One Over Creatinine 0.90 BUN/Creatinine Ratio 19.1 8-20 Calcium 9.4 mg/dL 8.1-9.9 eGFR Non- 64.1 > 60 eGFR 82.4 > 60 45 Laboratory test finding 04/17/2011 CPK (Creatine Kinase) 161 U/L 0-200 46 Lipid Profile (Trig/Chol/HDL) 04/17/2011 Triglyceride 189 mg/dL 40-200 46 Cholesterol 161 mg/dL Less Than 200 46, 47 High Density Lipoprotein 42 mg/dL 40-60 46, 48 Low Density Lipoprotein 81 mg/dL Less Than 100 46, 49 Cholesterol/HDL Ratio 3.83 AVERAGE 1-4.97 46 Comp Metabolic Panel 04/17/2011 Sodium 141 mmol/L 135-145 46 Potassium 4.2 mmol/L 3.5-5.0 46 Chloride 106 mmol/L 101-111 46 Co2 (Carbon Dioxide) 29.0 mmol/L 22-32 46 Anion Gap 6.0 mmol/L 2-11 46, 50 Glucose 115 mg/dL High 70-100 46 BUN 14 mg/dL 6-24 46 Creatinine 1.00 mg/dL 0.50-1.40 46 One Over Creatinine 1.00 46 BUN/Creatinine Ratio 14.0 8-20 46 Calcium 9.2 mg/dL 8.1-9.9 46 Total Protein 6.7 GM/DL 6.2-8.1 46 Albumin 4.0 GM/DL 3.2-5.2 46 Globulin 2.7 GM/DL 2-4 46 Albumin/Globulin Ratio 1.5 1-3 46 Bilirubin Total 0.8 mg/dL 0.4-1.5 46, 51 Alkaline Phosphatase 80 U/L 39-117 46 Alt (SGPT) 22 U/L 17-63 46 Ast (Sgot) 22 U/L 12-42 46 eGFR Non- 71.5 > 60 46 eGFR 92.0 > 60 46, 52 Lipid Panel - [facility] 10/19/2010 CPK (Creatine Kinase) 135 U/L 0-200 Comp Metabolic Panel 10/19/2010 Sodium 138 mmol/L 135-145 Potassium 3.9 mmol/L 3.5-5.0 Chloride 104 mmol/L 101-111 Co2 (Carbon Dioxide) 27.0 mmol/L 22-32 Anion Gap 7.0 mmol/L 2-11 53 Glucose 122 mg/dL High 70-100 BUN 16 mg/dL 6-24 Creatinine 1.10 mg/dL 0.50-1.40 One Over Creatinine 0.90 BUN/Creatinine Ratio 14.5 8-20 Calcium 8.7 mg/dL 8.1-9.9 Total Protein 6.8 GM/DL 6.2-8.1 Albumin 3.7 GM/DL 3.2-5.2 Globulin 3.1 GM/DL 2-4 Albumin/Globulin Ratio 1.2 1-3 Bilirubin Total 0.6 mg/dL 0.4-1.5 54 Alkaline Phosphatase 96 U/L 39-117 Alt (SGPT) 31 U/L 17-63 Ast (Sgot) 24 U/L 12-42 eGFR Non- 64.2 > 60 eGFR 82.6 > 60 55 Lipid Profile (Trig/Chol/HDL) 10/19/2010 Triglyceride 154 mg/dL 40-200 Cholesterol 149 mg/dL Less Than 200 56 High Density Lipoprotein 38 mg/dL Low 40-60 57 Cholesterol/HDL Ratio 3.92 AVERAGE 1-4.97 Low Density Lipoprotein 80 mg/dL Less Than 100 58 Comp Metabolic Panel 08/05/2010 Sodium 136 mmol/L 135-145 46 Potassium 3.9 mmol/L 3.5-5.0 46 Chloride 101 mmol/L 101-111 46 Co2 (Carbon Dioxide) 27.0 mmol/L 22-32 46 Anion Gap 8.0 mmol/L 2-11 46, 59 Glucose 115 mg/dL High 70-100 46, 60 BUN 16 mg/dL 6-24 46 Creatinine 1.00 mg/dL 0.50-1.40 46 One Over Creatinine 1.00 46 BUN/Creatinine Ratio 16.0 8-20 46 Calcium 8.7 mg/dL 8.1-9.9 46 Total Protein 7.1 GM/DL 6.2-8.1 46 Albumin 3.7 GM/DL 3.2-5.2 46 Globulin 3.4 GM/DL 2-4 46 Albumin/Globulin Ratio 1.1 1-3 46 Bilirubin Total 0.6 mg/dL 0.4-1.5 46, 61 Alkaline Phosphatase 97 U/L 39-117 46 Alt (SGPT) 26 U/L 17-63 46 Ast (Sgot) 24 U/L 12-42 46 eGFR Non- 76.2 > 60 46 eGFR 92.2 > 60 46, 62 Lipid Profile (Trig/Chol/HDL) 08/05/2010 Triglyceride 202 mg/dL High 40- 200 46 Cholesterol 199 mg/dL Less Than 200 46, 63 High Density Lipoprotein 40 mg/dL 40-60 46, 64 Cholesterol/HDL Ratio 4.98 AVERAGE High 1-4.97 46 Low Density Lipoprotein 119 mg/dL High Less Than 100 46, 65 Laboratory test finding 08/05/2010 CPK (Creatine Kinase) 116 U/L 0-200 46 CBC With Electronic Diff 08/05/2010 White Blood Count 9.4 CUMM 4.8-10.8 46 Red Cell Count 4.36 CUMM Low 4.6-6.2 46 Hemoglobin 14.1 g/dL 14.0-18.0 46 Hematocrit 41 % Low 42-52 46 Mean Corpuscular Volume 94 um3 80-94 46 Mean Corpuscular Hemoglob 32 pg High 27-31 46 Mean Corpuscular HGB Cone 34 g/dL 32-36 46 Redcell Distribution WDTH 13 % 10.5-15 46 Platelet Count 204 CUMM 150-450 46 Mean Platelet Volume 7.0 um3 Low 7.4-10.4 46 Gran % 59.9 % 38-83 46 Lymph % 19.0 % Low 25-47 46 Mononuclear % 10.3 % High 1-9 46 Eosinophil % 10.2 % High 0-6 46 Basophil % 0.6 % 0-2 46 Abs Lymphs 1.8 1.0-4.8 46 Abs Mononuclear 1.0 High 0-0.8 46 Absolute Neutrophil Count 5.6 1.5-7.7 46 Abs Eosinophils 1.0 High 0-0.6 46 Abs Basophils 0.1 0-0.2 46, 66 Basic Metabolic Panel 07/15/2009 Sodium 140 mmol/L 135-145 67 Potassium 4.2 mmol/L 3.5-5.0 67 Chloride 106 mmol/L 101-111 67 Co2 (Carbon Dioxide) 29.0 mmol/L 22-32 67 Anion Gap 5.0 mmol/L 2-11 67, 68 Glucose 95 mg/dL 70-100 67, 69 BUN 20 mg/dL 6-24 67 Creatinine 1.10 mg/dL 0.50-1.40 67 One Over Creatinine 0.90 67 BUN/Creatinine Ratio 18.2 8-20 67 Calcium 9.1 mg/dL 8.1-9.9 67, 70 eGFR Non- 68.5 > 60 67 eGFR 82.8 > 60 67, 71 Lipid Panel - [facility] 02/08/2009 CPK (Creatine Kinase) 163 U/L 0-200 Comp Metabolic Panel 02/08/2009 Sodium 141 mmol/L 135-145 Potassium 4.4 mmol/L 3.5-5.0 Chloride 108 mmol/L 101-111 Co2 (Carbon Dioxide) 27.0 mmol/L 22-32 Anion Gap 6.0 mmol/L 2-11 72 Glucose 100 mg/dL 70-100 73 BUN 23 mg/dL 6-24 Creatinine 1.10 mg/dL 0.50-1.40 One Over Creatinine 0.90 BUN/Creatinine Ratio 20.9 High 8-20 Calcium 8.8 mg/dL 8.1-9.9 74 Total Protein 6.3 GM/DL 6.2-8.1 Albumin 3.7 GM/DL 3.2-5.2 Globulin 2.6 GM/DL 2-4 Albumin/Globulin Ratio 1.4 1-3 Bilirubin Total 1.0 mg/dL 0.4-1.5 75 Alkaline Phosphatase 104 U/L 39-117 Alt (SGPT) 45 U/L 17-63 Ast (Sgot) 41 U/L 12-42 Lipid Profile (Trig/Chol/HDL) 02/08/2009 Triglyceride 116 mg/dL 40-200 Cholesterol 131 mg/dL Less Than 200 76 High Density Lipoprotein 38 mg/dL Low 40-60 77 Cholesterol/HDL Ratio 3.45 AVERAGE 1-4.97 Low Density Lipoprotein 70 mg/dL Less Than 100 78 Comp Metabolic Panel 08/17/2008 Sodium 140 mmol/L 135-145 79 Potassium 4.3 mmol/L 3.5-5.0 79 Chloride 107 mmol/L 101-111 79 Co2 (Carbon Dioxide) 30.0 mmol/L 22-32 79 Anion Gap 3.0 mmol/L 2-11 79, 80 Glucose 107 mg/dL High 70-100 79, 81 BUN 23 mg/dL 6-24 79 Creatinine 1.19 mg/dL 0.50-1.40 79 One Over Creatinine 0.80 79 BUN/Creatinine Ratio 19.3 8-20 79 Calcium 9.0 mg/dL 8.1-9.9 79, 82 Total Protein 6.9 GM/DL 6.2-8.1 79 Albumin 3.7 GM/DL 3.2-5.2 79 Globulin 3.2 GM/DL 2-4 79 Albumin/Globulin Ratio 1.2 1-3 79 Bilirubin Total 0.4 mg/dL 0.4-1.5 79 Alkaline Phosphatase 74 U/L 39-117 79 Alt (SGPT) 26 U/L 17-63 79 Ast (Sgot) 22 U/L 12-42 79 Lipid Profile (Trig/Chol/HDL) 08/17/2008 Triglyceride 171 mg/dL 40-200 79 Cholesterol 149 mg/dL Less Than 200 79, 83 High Density Lipoprotein 39 mg/dL Low 40-60 79, 84 Cholesterol/HDL Ratio 3.82 AVERAGE 1-4.97 79 Low Density Lipoprotein 76 mg/dL Less Than 100 79, 85 Laboratory test finding 08/17/2008 CPK (Creatine Kinase) 171 U/L 0-200 79 Lipid Panel - [facility] 02/18/2008 CPK (Creatine Kinase) 147 U/L 0-200 79 Comp Metabolic Panel 02/18/2008 Sodium 138 mmol/L 135-145 79 Potassium 5.0 mmol/L 3.5-5.0 79 Chloride 107 mmol/L 101-111 79 Co2 (Carbon Dioxide) 26.0 mmol/L 22-32 79 Anion Gap 5.0 mmol/L 2-11 79, 86 Glucose 110 mg/dL High 70-105 79 BUN 34 mg/dL High 6-24 79 Creatinine 1.5 mg/dL High 0.5-1.4 79 One Over Creatinine 0.66 79 BUN/Creatinine Ratio 22.7 High 8-20 79 Calcium 9.0 mg/dL 8.1-9.9 79, 87 Total Protein 6.7 GM/DL 6.2-8.1 79 Albumin 3.8 GM/DL 3.2-5.2 79 Globulin 2.9 GM/DL 2-4 79 Albumin/Globulin Ratio 1.3 1-3 79 Bilirubin Total 0.6 mg/dL 0.4-1.5 79 Alkaline Phosphatase 68 U/L 39-117 79 Alt (SGPT) 19 U/L 17-63 79 Ast (Sgot) 16 U/L 12-42 79 Lipid Profile (Trig/Chol/HDL) 02/18/2008 Triglyceride 171 mg/dL 40-200 79 Cholesterol 143 mg/dL Less Than 200 79, 88 High Density Lipoprotein 29 mg/dL Low 40-60 79, 89 Cholesterol/HDL Ratio 4.93 AVERAGE 1-4.97 79 Low Density Lipoprotein 80 mg/dL Less Than 100 79, 90 Lipid Profile 09/26/2007 Cholesterol/HDL Ratio 5.10 AVERAGE High 1-4.97 79 (Trig/Chol/HDL) Cholesterol 158 mg/dL Less Than 200 79, 91 Triglyceride 193 mg/dL 40-200 79 High Density Lipoprotein 31 mg/dL Low 40-60 79, 92 Low Density Lipoprotein 88 mg/dL Less Than 100 79, 93 Comp Metabolic Panel 09/26/2007 One Over Creatinine 0.71 79 Anion Gap 5.0 mmol/L 2-11 79, 94 Albumin/Globulin Ratio 1.2 1-3 79 Albumin 3.6 GM/DL 3.2-5.2 79 Alkaline Phosphatase 72 U/L 39-117 79 Alt (SGPT) 25 U/L 17-63 79 Ast (Sgot) 18 U/L 12-42 79 BUN 20 mg/dL 6-24 79 Calcium 8.7 mg/dL 8.7-10.2 79 Chloride 106 mmol/L 101-111 79 Co2 (Carbon Dioxide) 29.0 mmol/L 22-32 79 Globulin 2.9 GM/DL 2-4 79 Glucose 110 mg/dL High 70-105 79 Potassium 4.6 mmol/L 3.5-5.0 79 Sodium 140 mmol/L 135-145 79 Bilirubin Total 0.3 mg/dL Low 0.4-1.5 79 Total Protein 6.5 GM/DL 6.2-8.1 79 BUN/Creatinine Ratio 14.3 8-20 79 Creatinine 1.4 mg/dL 0.5-1.4 79 Lipid Panel - [facility] 09/26/2007 CPK (Creatine Kinase) 137 U/L 0-200 79 Lipid Panel - [facility] 03/18/2007 CPK (Creatine Kinase) 309 U/L High 0-200 79 Comp Metabolic Panel 03/18/2007 One Over Creatinine 0.76 79 Anion Gap 5.0 mmol/L 2-11 79, 95 Albumin/Globulin Ratio 1.4 1-3 79 Albumin 3.8 GM/DL 3.2-5.2 79 Alkaline Phosphatase 71 U/L 39-117 79 Alt (SGPT) 19 U/L 17-63 79 Ast (Sgot) 19 U/L 12-42 79 BUN 25 mg/dL High 6-24 79 Calcium 8.7 mg/dL 8.7-10.2 79 Chloride 107 mmol/L 101-111 79 Co2 (Carbon Dioxide) 26.0 mmol/L 22-32 79 Globulin 2.8 GM/DL 2-4 79 Glucose 109 mg/dL High 70-105 79 Potassium 4.7 mmol/L 3.5-5.0 79 Sodium 138 mmol/L 135-145 79 Bilirubin Total 0.8 mg/dL 0.4-1.5 79 Total Protein 6.6 GM/DL 6.2-8.1 79 BUN/Creatinine Ratio 19.2 8-20 79 Creatinine 1.3 mg/dL 0.5-1.4 79 Lipid Profile 03/18/2007 Cholesterol/HDL Ratio 3.09 AVERAGE 1-4.97 79 (Trig/Chol/HDL) Cholesterol 108 mg/dL Less Than 200 79, 96 Triglyceride 73 mg/dL 40-200 79 High Density Lipoprotein 35 mg/dL Low 40-60 79, 97 Low Density Lipoprotein 58 mg/dL Less Than 100 79, 98 Lipid Panel - [facility] 01/14/2007 CPK (Creatine Kinase) 303 U/L High 0-200 79 Comp Metabolic Panel 01/14/2007 One Over Creatinine 0.90 79 Anion Gap 8.0 mmol/L 2-11 79, 99 Albumin/Globulin Ratio 1.2 1-3 79 Albumin 3.6 GM/DL 3.2-5.2 79 Alkaline Phosphatase 75 U/L 39-117 79 Alt (SGPT) 19 U/L 17-63 79 Ast (Sgot) 22 U/L 12-42 79 BUN 24 mg/dL 6-24 79 Calcium 8.7 mg/dL 8.7-10.2 79 Chloride 103 mmol/L 101-111 79 Co2 (Carbon Dioxide) 29.0 mmol/L 22-32 79 Globulin 2.9 GM/DL 2-4 79 Glucose 112 mg/dL High 70-105 79 Potassium 4.3 mmol/L 3.5-5.0 79 Sodium 140 mmol/L 135-145 79 Bilirubin Total 0.7 mg/dL 0.4-1.5 79 Total Protein 6.5 GM/DL 6.2-8.1 79 BUN/Creatinine Ratio 21.8 High 8-20 79 Creatinine 1.1 mg/dL 0.5-1.4 79 Lipid Profile 01/14/2007 Cholesterol/HDL Ratio 3.64 AVERAGE 1-4.97 79 (Trig/Chol/HDL) Cholesterol 131 mg/dL Less Than 200 79, 100 Triglyceride 110 mg/dL 40-200 79 High Density Lipoprotein 36 mg/dL Low 40-60 79, 101 Low Density Lipoprotein 73 mg/dL Less Than 100 79, 102 Laboratory test finding 11/12/2006 CPK (Creatine Kinase) 189 U/L 0-200 79 Comp Metabolic Panel 11/12/2006 One Over Creatinine 0.76 79 Anion Gap 7.0 mmol/L 2-11 79, 103 Albumin/Globulin Ratio 1.4 1-3 79 Albumin 4.0 GM/DL 3.2-5.2 79 Alkaline Phosphatase 82 U/L 39-117 79 Alt (SGPT) 27 U/L 63 79 Ast (Sgot) 22 U/L -42 79 BUN 23 mg/dL 6-24 79 Calcium 9.1 mg/dL 8.7-10.2 79 Chloride 107 mmol/L 101-111 79 Co2 (Carbon Dioxide) 29.0 mmol/L 22-32 79 Globulin 2.8 GM/DL 2-4 79 Glucose 109 mg/dL High 70-105 79 Potassium 4.6 mmol/L 3.5-5.0 79 Sodium 143 mmol/L 135-145 79 Bilirubin Total 0.5 mg/dL 0.4-1.5 79 Total Protein 6.8 GM/DL 6.2-8.1 79 BUN/Creatinine Ratio 17.7 8-20 79 Creatinine 1.3 mg/dL 0.5-1.4 79 Lipid Profile 11/12/2006 Cholesterol/HDL Ratio 4.68 AVERAGE 1-4.97 79 (Trig/Chol/HDL) Cholesterol 178 mg/dL Less Than 200 79, 104 Triglyceride 229 mg/dL High 40-200 79 High Density Lipoprotein 38 mg/dL Low 40-60 79, 105 Low Density Lipoprotein 94 mg/dL Less Than 100 79, 106 Laboratory test finding 07/25/2006 Magnesium 2.2 mg/dL 1.7-2.6 Basic Metabolic Panel 01/09/2006 One Over Creatinine 0.76 79 Anion Gap 6.0 mmol/L 2-11 79, 107 BUN 24 mg/dL 6-24 79 Calcium 9.0 mg/dL 8.7-10.2 79 Chloride 104 mmol/L 101-111 79 Co2 (Carbon Dioxide) 30.0 mmol/L 22-32 79 Glucose 103 mg/dL 70-105 79 Potassium 4.1 mmol/L 3.5-5.0 79 Sodium 140 mmol/L 135-145 79 BUN/Creatinine Ratio 18.5 8-20 79 Creatinine 1.3 mg/dL 0.5-1.4 79 1 >100 to <200 pg/mL: likely compensated congestive heart failure (CHF) 200 to 400 pg/mL: likely moderate CHF >400 pg/mL: likely moderate to severe CHF 2 non-fasting today cc pmd 3 Because ethnic data is not always readily [...] 15-29 5 Kidney failure <15 (or dialysis) 4 Fasting in next 1-2 weeks 5 Because ethnic data is not always readily [...] 15-29 5 Kidney failure <15 (or dialysis) 6 Desirable <150 Borderline high 150-199 High 200-499 Very High >500 7 Desirable <200 Borderline high 200-239 High >239 8 Low <40 Desirable: 40-60 High: >60 9 Desirable: <100 mg/dL Near Optimal: 100-129 mg/dL Borderline High: 130-159 mg/dL High: 160-189 mg/dL Very High: >189 mg/dL 10 Because ethnic data is not always readily [...] 15-29 5 Kidney failure <15 (or dialysis) 11 Because ethnic data is not always [...] 5 Kidney failure <15 (or dialysis) 12 Normal Range 180 to 914 Indeterminate Range 145 to 180 Deficient Range <145 13 >100 to <200 pg/mL: likely compensated congestive heart failure (CHF) 200 to 400 pg/mL: likely moderate CHF >400 pg/mL: likely moderate to severe CHF [place] [facility] 14 Potassium reference range changed effective 07/05/14 15 Because ethnic data is not always readily [...] 15-29 5 Kidney failure <15 (or dialysis) 16 Because ethnic data is not always [...] 5 Kidney failure <15 (or dialysis) 17 FASTING 18 Desirable <150 Borderline high 150-199 High 200-499 Very High >500 19 Desirable <200 Borderline high 200-239 High >239 20 Low <40 Desirable: 40-60 High: >60 21 Desirable <100 Near Optimal 100-129 Borderline high 130-159 High 160-189 Very High >189 22 Because ethnic data is not always [...] failure <15 (or dialysis) 23 FASTING 24 Because ethnic data is not always readily [...] 15-29 5 Kidney failure <15 (or dialysis) 25 To be drawn Thesther 01/15/14 26 Because ethnic data is not always readily [...] 15-29 5 Kidney failure <15 (or dialysis) 27 Because ethnic data is not always readily [...] 15-29 5 Kidney failure <15 (or dialysis) 28 Desirable <150 Borderline high 150-199 High 200-499 Very High >500 29 Desirable <200 Borderline high 200-239 High >239 30 Low <40 Desirable: 40-60 High: >60 31 Desirable <100 Near Optimal 100-129 Borderline high 130-159 High 160-189 Very High >189 32 >100 to <200 pg/mL: likely compensated congestive heart failure (CHF) 200 to 400 pg/mL: likely moderate CHF >400 pg/mL: likely moderate to severe CHF [place] [facility] 33 Because ethnic data is not always [...] 5 Kidney failure <15 (or dialysis) 34 Because ethnic data is not always readily [...] 15-29 5 Kidney failure <15 (or dialysis) 35 Fasting 36 A metabolite of Naproxen, O-desmethylnaproxen, has been shown to interfere with the Jendrassik-Glenn method for measuring total bilirubin. Samples from patients who have taken Naproxen have shown spurious elevation in total bilirubin levels. 37 Because ethnic data is not always readily [...] 15-29 5 Kidney failure <15 (or dialysis) 38 HDL Interpretation: Undesirable: High Risk: Less than 40 MG/DL Desirable: Low Risk: Greater than 60 MG/DL 39 LDL Interpretation: Low Risk Optimal Level: LDL Less than 100 MG/DL Near or Above Optimal: LDL 100-129 MG/DL Borderline High Risk: LDL 130-159 MG/DL High Risk: LDL 160-189 MG/DL Very High Risk: LDL Greater than 189 MG/DL 40 A metabolite of Naproxen, O-desmethylnaproxen, has been shown to interfere with the Jendrassik-Chandrakant method for measuring total bilirubin. Samples from patients who have taken Naproxen have shown spurious elevation in total bilirubin levels. 41 Because ethnic data is not always readily [...] 15-29 5 Kidney failure <15 (or dialysis) 42 Desirable: Less than 200 MG/DL Borderline-High Risk: 200-239 MG/DL High-Risk: 240 MG/DL and over 43 HDL Interpretation: Undesirable: High Risk: Less than 40 MG/DL Desirable: Low Risk: Greater than 60 MG/DL 44 Anion gap measurement may be of limited value in the presence of any alkalosis, especially in a combined acid base disorder. . 45 Because ethnic data is not always readily [...] 15-29 5 Kidney failure <15 (or dialysis) 46 FASTING 47 CHOLESTEROL INTERPRETATION: Desirable: Less than 200 MG/DL Borderline-High Risk: 200-239 MG/DL High-Risk: 240 MG/DL and over 48 HDL INTERPRETATION: Undesirable: High Risk: Less than 40 MG/DL Desirable: Low Risk: Greater than 60 MG/DL 49 LDL INTERPRETATION: Low Risk Optimal Level: LDL Less than 100 MG/DL Near or Above Optimal: LDL 100-129 MG/DL Borderline High Risk: LDL 130-159 MG/DL High Risk: LDL 160-189 MG/DL Very High Risk: LDL Greater than 189 MG/DL 50 Anion gap measurement may be of limited value in the presence of any alkalosis, especially in a combined acid base disorder. . 51 A metabolite of Naproxen, O-desmethylnaproxen, has been shown to interfere with the Jendrassik-Glenn method for measuring total bilirubin. Samples from patients who have taken Naproxen have shown spurious elevation in total bilirubin levels. 52 Because ethnic data is not always readily [...] 15-29 5 Kidney failure <15 (or dialysis) 53 Anion gap measurement may be of limited value in the presence of any alkalosis, especially in a combined acid base disorder. . 54 A metabolite of Naproxen, O-desmethylnaproxen, has been shown to interfere with the Jendrassik-Chandrakant method for measuring total bilirubin. Samples from patients who have taken Naproxen have shown spurious elevation in total bilirubin levels. 55 Because ethnic data is not always readily [...] 15-29 5 Kidney failure <15 (or dialysis) 56 CHOLESTEROL INTERPRETATION: Desirable: Less than 200 MG/DL Borderline-High Risk: 200-239 MG/DL High-Risk: 240 MG/DL and over 57 HDL INTERPRETATION: Undesirable: High Risk: Less than 40 MG/DL Desirable: Low Risk: Greater than 60 MG/DL 58 LDL INTERPRETATION: Low Risk Optimal Level: LDL Less than 100 MG/DL Near or Above Optimal: LDL 100-129 MG/DL Borderline High Risk: LDL 130-159 MG/DL High Risk: LDL 160-189 MG/DL Very High Risk: LDL Greater than 189 MG/DL 59 Anion gap measurement may be of limited value in the presence of any alkalosis, especially in a combined acid base disorder. . 60 Note change in reference range as of 04/23/08. The change was based on recommendations from the [place] [employer]. 61 A metabolite of Naproxen, O-desmethylnaproxen, has been shown to interfere with the Jendrassik-Chandrakant method for measuring total bilirubin. Samples from patients who have taken Naproxen have shown spurious elevation in total bilirubin levels. 62 Because ethnic data is not always readily [...] 15-29 5 Kidney failure <15 (or dialysis) 63 CHOLESTEROL INTERPRETATION: Desirable: Less than 200 MG/DL Borderline-High Risk: 200-239 MG/DL High-Risk: 240 MG/DL and over 64 HDL INTERPRETATION: Undesirable: High Risk: Less than 40 MG/DL Desirable: Low Risk: Greater than 60 MG/DL 65 LDL INTERPRETATION: Low Risk Optimal Level: LDL Less than 100 MG/DL Near or Above Optimal: LDL 100-129 MG/DL Borderline High Risk: LDL 130-159 MG/DL High Risk: LDL 160-189 MG/DL Very High Risk: LDL Greater than 189 MG/DL 66 Lymphopenia % 67 FAX TO [phone] 68 Anion gap measurement may be of limited value in the presence of any alkalosis, especially in a combined acid base disorder. . 69 Note change in reference range as of 04/23/08. The change was based on recommendations from the [place] [employer]. 70 Please note change in reference range effective 08 . 71 Because ethnic data is not always readily [...] 15-29 5 Kidney failure <15 (or dialysis) 72 Anion gap measurement may be of limited value in the presence of any alkalosis, especially in a combined acid base disorder. . 73 Note change in reference range as of 04/23/08. The change was based on recommendations from the [place] [employer]. 74 Please note change in reference range effective 08 . 75 A metabolite of Naproxen, O-desmethylnaproxen, has been shown to interfere with the Jendrassik-Chandrakant method for measuring total bilirubin. Samples from patients who have taken Naproxen have shown spurious elevation in total bilirubin levels. 76 CHOLESTEROL INTERPRETATION: Desirable: Less than 200 MG/DL Borderline-High Risk: 200-239 MG/DL High-Risk: 240 MG/DL and over 77 HDL INTERPRETATION: Undesirable: High Risk: Less than 40 MG/DL Desirable: Low Risk: Greater than 60 MG/DL 78 LDL INTERPRETATION: Low Risk Optimal Level: LDL Less than 100 MG/DL Near or Above Optimal: LDL 100-129 MG/DL Borderline High Risk: LDL 130-159 MG/DL High Risk: LDL 160-189 MG/DL Very High Risk: LDL Greater than 189 MG/DL 79 FASTING 80 Anion gap measurement may be of limited value in the presence of any alkalosis, especially in a combined acid base disorder. . 81 Note change in reference range as of 04/23/08. The change was based on recommendations from the [place] [employer]. 82 Please note change in reference range effective 08 . 83 CHOLESTEROL INTERPRETATION: Desirable: Less than 200 MG/DL Borderline-High Risk: 200-239 MG/DL High-Risk: 240 MG/DL and over 84 HDL INTERPRETATION: Undesirable: High Risk: Less than 40 MG/DL Desirable: Low Risk: Greater than 60 MG/DL 85 LDL INTERPRETATION: Low Risk Optimal Level: LDL Less than 100 MG/DL Near or Above Optimal: LDL 100-129 MG/DL Borderline High Risk: LDL 130-159 MG/DL High Risk: LDL 160-189 MG/DL Very High Risk: LDL Greater than 189 MG/DL 86 Anion gap measurement may be of limited value in the presence of any alkalosis, especially in a combined acid base disorder. . 87 Please note change in reference range effective 08 . 88 CHOLESTEROL INTERPRETATION: Desirable: Less than 200 MG/DL Borderline-High Risk: 200-239 MG/DL High-Risk: 240 MG/DL and over 89 HDL INTERPRETATION: Undesirable: High Risk: Less than 40 MG/DL Desirable: Low Risk: Greater than 60 MG/DL 90 LDL INTERPRETATION: Low Risk Optimal Level: LDL Less than 100 MG/DL Near or Above Optimal: LDL 100-129 MG/DL Borderline High Risk: LDL 130-159 MG/DL High Risk: LDL 160-189 MG/DL Very High Risk: LDL Greater than 189 MG/DL 91 Classification: Desirable . 92 Classification: Low . 93 CALCULATED LDL APPROXIMATES THE VALUE OF A DIRECT LDL MEASUREMENT. Classification: Optimal Level . 94 Anion gap measurement may be of limited value in the presence of any alkalosis, especially in a combined acid base disorder. . 95 Anion gap measurement may be of limited value in the presence of any alkalosis, especially in a combined acid base disorder. . 96 Classification: Desirable . 97 Classification: Low . 98 CALCULATED LDL APPROXIMATES THE VALUE OF A DIRECT LDL MEASUREMENT. Classification: Optimal Level . 99 Anion gap measurement may be of limited value in the presence of any alkalosis, especially in a combined acid base disorder. . 100 Classification: Desirable . 101 Classification: Low . 102 CALCULATED LDL APPROXIMATES THE VALUE OF A DIRECT LDL MEASUREMENT. Classification: Optimal Level . 103 Anion gap measurement may be of limited value in the presence of any alkalosis, especially in a combined acid base disorder. . 104 Classification: Desirable . 105 Classification: Low . 106 CALCULATED LDL APPROXIMATES THE VALUE OF A DIRECT LDL MEASUREMENT. Classification: Optimal Level . 107 Anion gap measurement may be of limited value in the presence of any alkalosis, especially in a combined acid base disorder. . Procedures Date CPT Code Description Status 08/02/2017 87431 EKG Tracing & Interpretation Completed 06/12/2017 40087 ECHO Transthoracic, Real-Time 2D With Doppler And Color Completed Flow 05/30/2017 10075 Biopsy External Ear Completed 05/30/2017 76303 Dest Lesion Each Addl Lesion 2 Through 14 Each Completed 05/30/2017 51012 Destruction ALL Benign Or Premalignant Lesion (Other Completed Than [place] 05/15/2017 00498 EKG Tracing & Interpretation Completed 01/26/2017 87296 EKG Tracing & Interpretation Completed 01/09/2017 13954 Holter Monitor Review (24 hr)dr toro & iram Completed only 01/09/2017 05784 EKG Tracing & Interpretation Completed 01/05/2017 04475 Holter Monitor Review (24 hr)dr toro & iram Completed only 01/05/2017 25475 ECG Monitor/Recording W/Visual Superimposition Scanning Completed 01/04/2017 44618 ECG Monitor/Recording W/Visual Superimposition Scanning Completed 12/29/2016 72572 Color Flow Doppler/Interp & Reprt Completed 12/29/2016 55424 Pulse Wave/Continuous-Interp.RPT Completed 12/29/2016 46937 Echocardiography, Transesophageal, Real Time W/Image 2D Completed W/W/O M-M 11/27/2016 81883 EKG Tracing & Interpretation Completed 07/14/2016 61079 ECHO Transthoracic, Real-Time 2D With Doppler And Color Completed Flow 07/04/2016 73116 EKG Tracing & Interpretation Completed 12/31/2015 52399 Stress Test Completed 12/31/2015 54619 Myocardial Perfusion Imaging Tomographic (Spect) Completed Multiple Studies 12/31/2015 63629 Myocardial Perfusion Imaging Tomographic (Spect) Completed Multiple Studies 12/13/2015 17778 Holter Monitor Review (24 hr)dr toro & iram Completed only 12/06/2015 34668 EKG Tracing & Interpretation Completed 11/15/2015 57807 ECHO Transthorasic Realtime 2D W Doppler & Color Completed Flow Hosp 11/04/2015 08348 EKG Tracing & Interpretation Completed 04/28/2015 68282 EKG Tracing & Interpretation Completed 03/29/2015 50189 EKG Tracing & Interpretation Completed 03/29/2015 17040 EKG Tracing & Interpretation Completed 01/21/2015 05272 ECHO Transthoracic, Real-Time 2D With Doppler And Color Completed Flow 01/19/2015 16213 Holter Monitor Review (24 hr)dr toro & iram Completed only 01/11/2015 48465 EKG Tracing & Interpretation Completed 11/16/2014 16944 EKG Tracing & Interpretation Completed 09/04/2014 72534 ECHO Transthoracic, Real-Time 2D With Doppler And Color Completed Flow 06/10/2014 71972 EKG Tracing & Interpretation Completed 11/20/2013 07244 ECHO Stress Test Incl Perf Contiuous ekg Monitoring Completed W/Phys Superv 11/20/2013 09234 ECHO Stress Test Incl Perf Contiuous ekg Monitoring Completed W/Phys Superv 10/29/2013 56294 EKG Tracing & Interpretation Completed 08/04/2013 84667 ECHO Stress Test Incl Perf Contiuous ekg Monitoring Completed W/Phys Superv 08/04/2013 43686 ECHO Stress Test Incl Perf Contiuous ekg Monitoring Completed W/Phys Superv 07/22/2013 59401 Holter Monitoring 24 HR New Completed 06/30/2013 13204 ECHO Transthoracic, Real-Time 2D With Doppler And Color Completed Flow 06/25/2013 26390 EKG Tracing & Interpretation Completed 09/25/2012 68286 EKG Tracing & Interpretation Completed 06/12/2012 73239 EKG Tracing & Interpretation Completed 05/16/2012 25015 ECHO Transthoracic, Real-Time 2D With Doppler And Color Completed Flow 01/22/2012 73572 EKG Tracing & Interpretation Completed 08/17/2011 92302 EKG Tracing & Interpretation Completed 06/28/2011 76338 Mobile Cardiovascular Telemetry Over 24 HR Up To 30 Completed Days 06/07/2011 44583 ECHO Stress Test Incl Perf Contiuous ekg Monitoring Completed W/Phys Superv 05/22/2011 72172 Holter Monitoring 24 HR New Completed 05/05/2011 34873 EKG Tracing & Interpretation Completed 11/22/2010 81782 Treadmill Interp/Report Only Completed 11/22/2010 07050 Stress Test Supervsn W/Out I/R Completed 07/19/2010 44392 EKG Tracing & Interpretation Completed 09/06/2009 70763 EKG Tracing & Interpretation Completed 02/09/2009 23382 EKG Tracing & Interpretation Completed 11/27/2008 07084 EKG Tracing & Interpretation Completed 05/22/2008 33696 EKG Tracing & Interpretation Completed 05/22/2008 16479 EKG Tracing & Interpretation Completed 04/28/2008 81317 Stress Test Supervsn W/Out I/R Completed 04/28/2008 97238 Stress Test Supervsn W/Out I/R Completed 04/28/2008 12646 Treadmill Interp/Report Only Completed 2008 69744 EKG Tracing & Interpretation Completed 2008 94717 EKG Tracing & Interpretation Completed 03/04/2008 20752 ECHO/Stress Completed 03/04/2008 30284 ECHO/Stress Completed 03/04/2008 41435 ECHO/Stress Completed 03/04/2008 45603 Stress Test Completed 03/04/2008 68376 Stress Test Completed 01/10/2008 85723 EKG Tracing & Interpretation Completed 01/10/2008 45249 EKG Tracing & Interpretation Completed 12/31/2006 66419 EKG Tracing & Interpretation Completed 08/15/2006 21941 EKG Tracing & Interpretation Completed 07/03/2006 79564 Color Flow Doppler/Interp & Reprt Completed 07/03/2006 44654 Color Flow Doppler/Interp & Reprt Completed 07/03/2006 73082 Echocardiography, Transesophageal, Real Time W/Image 2D Completed W/W/O M-M 06/13/2006 54965 EKG Tracing & Interpretation Completed 06/13/2006 76773 EKG Tracing & Interpretation Completed 05/09/2006 63306 Color Doppler Completed 05/09/2006 98153 Pulse Doppler & Continuous Wave Completed 05/09/2006 79774 Pulse Doppler & Continuous Wave Completed 05/09/2006 52519 Echocardiogram Completed 05/12/2005 14933 Stress Test Completed 05/12/2005 70772 ECHO/Stress Completed 04/18/2005 93101 Color Doppler Completed 04/18/2005 66483 Pulse Doppler & Continuous Wave Completed 04/18/2005 20128 Echocardiogram Completed 04/13/2005 49944 EKG Tracing & Interpretation Completed 04/22/2004 30485 EKG Tracing & Interpretation Completed 03/26/2003 89225 ECHO/Stress Completed 03/26/2003 39553 Stress Test Completed 03/10/2003 89481 Color Doppler Completed 03/10/2003 40548 Pulse Doppler & Continuous Wave Completed 03/10/2003 74951 Echocardiogram Completed 02/20/2003 82019 EKG Tracing & Interpretation Completed Encounters Type Date Location Provider CPT E/M Dx Office Visit 05/30/2017 2:00p [facility] [place] [address] L82.1 C44.229 L57.0 Office Visit 05/15/2017 10:20a [facility] Philip Lance M.D. 66106 R42 I35.0 I25.10 I71.2 I49.5 I25.2 R94.31 I10 Office Visit 01/30/2017 2:00p [facility] [place] [address] I10 Office Visit 01/26/2017 11:00a [facility] JUSTYNA Malik 79943 I10 I35.0 I49.3 R06.02 Office Visit 01/09/2017 1:20p [facility] Philip Lance M.D. 71068 I10 R42 I35.0 R94.31 I25.10 Office Visit 12/29/2016 8:00a [facility] Philip Lance M.D. 10326 I35.0 I10 I25.10 Office Visit 12/07/2016 1:00p [facility] [place] [address] I10 Office Visit 11/27/2016 9:30a [facility] JUSTYNA Malik 61847 R42 I35.0 I10 Office Visit 07/19/2016 11:00a [facility] JUSTYNA Malik 52859 I35.0 I25.10 I10 E78.5 Office Visit 07/04/2016 10:20a [facility] Philip Lance, 14573 I25.10 M.D. I10 E11.9 E78.5 I25.5 I35.0 Office Visit 02/07/2016 9:30a [facility] JUSTYNA Malik 07453 I25.10 I10 I35.0 E11.9 E78.5 Office Visit 12/13/2015 9:15a [facility] [place] [address] I10 Office Visit 12/06/2015 9:00a [facility] JUSTYNA Malik 66178 R42 I25.10 I35.0 E11.9 I10 R09.02 Office Visit 11/16/2015 4:06p [facility] [address] R42 Hospitalists I25.10 R79.89 Office Visit 11/16/2015 2:14p [facility] Helder Hammond 77876 I25.10 [facility] Maykel I35.0 Office Visit 11/15/2015 4:05p [facility], Rachel Hardin, N.PAiram 54050 R42 Hospitalists I25.10 R79.89 Office Visit 11/04/2015 10:00a [facility] JUSTYNA Malik 49169 G11.1 R42 I10 I35.0 N64.9 Office Visit 07/27/2015 10:30a [facility] Jose De Luna, 40651 I63.8 M.DAiram G11.1 Office Visit 05/03/2015 10:45a [facility] Jose De Luna, 27387 781.2 M.DAiram 334.3 434.91 Office Visit 04/28/2015 10:00a [facility] Philip Lance M.D. 20049 780.4 781.2 401.9 424.1 424.0 Office Visit 04/09/2015 10:00a [facility] Jose De Luna, 21970 780.4 M.DAiram 434.91 334.3 787.01 781.2 Office Visit 04/02/2015 2:30p [facility] [place] [address] 401.9 Office Visit 03/29/2015 3:00p [facility] Philip Lance M.D. 68038 424.1 441.9 424.0 401.9 Office Visit 03/10/2015 3:40p [facility] Philip Lance, 64825 424.1 [place] 441.9 414.01 424.0 401.9 386.2 Office Visit 01/28/2015 1:30p [facility] JUSTYNA Malik 84999 441.9 424.1 414.01 424.0 780.4 401.1 Office Visit 01/11/2015 1:30p [facility] JUSTYNA Malik 49033 441.9 424.0 424.1 401.1 414.01 780.4 780.79 Office Visit 11/16/2014 11:00a [facility] Philip Lance M.D. 79243 441.9 401.1 424.1 414.01 424.0 Office Visit 08/31/2014 11:00a [facility] Jose Noble, 99545 722.10 Of [place] Office Visit 06/10/2014 2:20p [facility] Philip Campo 09182 441.9 Maykel Lance 401.1 424.1 414.01 424.0 Office Visit 02/10/2014 3:30p [facility] JUSTYNA Malik 72434MBY 401.1 441.9 424.1 414.01 Office Visit 12/31/2013 1:30p [facility] JUSTYNA Malik 39002 401.1 786.05 441.9 799.02 Office Visit 12/15/2013 2:30p [facility] JUSTYNA Malik 51787 424.1 401.1 414.01 441.9 786.05 Office Visit 11/20/2013 2:30p [facility] Philip Lance M.D. 44686 424.1 424.0 427.32 272.0 Office Visit 11/20/2013 2:00p [facility] Schedule 33063 401.1 414.01 786.05 Office Visit 10/29/2013 10:20a [facility] Philip Lance M.D. 34510 424.1 424.0 427.32 401.1 272.0 414.04 Office Visit 08/04/2013 10:30a [facility] Philip Lance M.D. 04597 424.1 424.0 412 780.4 Office Visit 07/11/2013 8:30a [facility] [place] [address] 401.1 Office Visit 06/25/2013 10:40a [facility] Philip Lance M.D. 13916 272.0 424.0 424.1 Office Visit 11/04/2012 10:30a [facility] Philip Lance M.D. 37370 424.0 272.0 412 401.1 Office Visit 09/25/2012 11:20a [facility] Philip Lance M.D. 89767 272.0 424.0 424.1 412 Office Visit 06/12/2012 10:20a [facility] Philip Lance M.D. 63627 424.0 272.0 424.1 412 Office Visit 02/06/2012 11:00a [facility] Carline Mendoza, N.PAiram 7[address] 401.1 [facility] [place] 01/22/2012 3:20p [facility] Philip Lance 78326 424.0 [facility] [place] Maykel 424.1 401.1 272.0 Office Visit 09/14/2011 1:15p [facility] [place] [address] 401.1 Office Visit 08/17/2011 2:00p [facility] Philip Lance M.D. 36419 401.1 424.0 412 Office Visit 06/20/2011 9:30a [facility] [place] [address] 427.32 401.1 780.79 Office Visit 06/07/2011 2:30p [facility] Philip Lance M.D. 48383 424.1 401.1 414.8 412 Office Visit 05/12/2011 8:15a [facility] [place] [address] 401.1 Office Visit 05/05/2011 11:00a [facility] Philip Lance M.D. 54161 414.8 401.1 780.4 Office Visit 07/19/2010 2:20p [facility] Philip Lance M.D. 92702 424.0 424.1 414.01 401.1 272.0 Office Visit 09/06/2009 10:00a [facility] Philip Lance M.D. 74772 401.1 424.0 414.01 272.0 Office Visit 05/07/2009 11:00a [facility] Philip Lance M.D. 62491 401.1 424.0 424.1 414.01 272.0 Office Visit 03/12/2009 9:30a [facility] [place] [address] 401.1 Office Visit 02/09/2009 3:40p [facility] Philip Lance M.D. 26373 401.1 424.0 424.1 414.01 Office Visit 12/25/2008 10:30a [facility] [place] [address] 401.1 Office Visit 11/27/2008 10:00a [facility] Philip Lance 26979 414.01 M.D. 424.0 401.0 Office Visit 08/07/2008 11:20a [facility] Philip Lance 60157 414.01 M.D. 424.0 401.1 424.1 412 Office Visit 05/22/2008 2:40p [facility] Philip Lance 08772 414.01 M.D. 424.0 401.1 424.1 Office Visit 2008 11:00a [facility] Philip Lance 83351 414.01 M.D. 401.1 441.2 Office Visit 01/10/2008 3:00p [facility] Philip Lance 09102 414.01 M.D. 401.1 272.0 441.2 424.0 Office Visit 12/31/2006 3:00p [facility] Philip Lance 86690 414.01 M.D. 401.1 272.0 441.2 Office Visit 08/15/2006 2:00p [facility] Philip Lance, 78486 414.01 M.D. 401.1 441.2 Office Visit 07/12/2006 9:00a [facility] Philip Lance, 64364 414.01 M.D. 441.2 Office Visit 06/13/2006 9:40a [facility] Philip Lance, 27595 414.01 M.D. 401.1 272.0 Office Visit 04/13/2005 10:20a [facility] Philip Lance, 18849 414.01 M.D. 412 424.1 Office Visit 04/22/2004 1:40p [facility] Philip Lance, 39440 414.01 M.D. 401.1 412 272.0 Office Visit 02/20/2003 9:20a [facility] Philip Lance, 32407 414.01 M.D. Plan of Care Future Appointment(s):08/16/2017 2:30 pm - JUSTYNA Malik at [facility]09/07/2017 3:30 pm - [place] [facility] Schedule at [facility]08/02/2017 - Philip Lance M.D.I35.0 Nonrheumatic aortic (valve) ptldqzmmD77.2 Thoracic aortic aneurysm, without gvryxezC76.10 Aths[place] heart disease [place] coronary artery w/o ang nsjavS26.5 Sick sinus ouazgmmnH85.00 Pure hypercholesterolemia, ufkomdeuvafS90.00 Dyspnea, unspecifiedNew Labs:CBC Auto DiffLipid Panel - JFMB-Type Natriuretic Peptide BNPMagnesiumTSH (Thyroid Stim Horm)New Orders:EchocardiogramFollow up:ov Marj 1-2 weeksRecommendations:daily weight starting today. take torsemide 20 mg today.
[2017-08-28 12:21] LABS: ABS Basophils 0.1 10^3/ul (0-0.2); ABS Eosinophils 0 10^3/ul (0-0.6); ABS Lymphocytes 1.1 10^3/ul (1.0-4.8); ABS Monocytes 0.7 10^3/ul (0-0.8); ABS Neutrophils 6.7 10^3/ul (1.5-7.7); ABS Nucleated RBC 0.01 10^3/ul; Eosinophil % 0.3 % (0-6); Hematocrit 40 % (42-52); Hemoglobin 13.4 g/dl (14.0-18.0); Lymphocyte % 12.6 % (25-47); Mean Corpuscular HGB Conc 34 g/dl (31-36); Mean Corpuscular Hemoglobin 32 pg (27-31); Mean Corpuscular Volume 94 fL (80-94); Mean Platelet Volume 9 um3 (7.4-10.4); Nucleated Red Blood Cells % 0.1; Platelet Count 193 10^3/ul (150-450); Red Blood Count 4.22 10^6/ul (4.0-5.4); Red Cell Distribution Width 14 % (10.5-15); White Blood Count 8.6 10^3/ul (3.5-10.8)
[2017-08-28 12:35] LABS: EGFR Non-African American 44.9 (>60)
--- NOTE | 2017-08-28 12:42 | RAD ---
Indication: Dizziness. Increased shortness of breath. Comparison: May 06, 2015 Technique: Noncontrast CT vertex of skull through foramen magnum. Report: Moderate prominence of the cerebral sulci and mild prominence of the cerebellar fissures reflecting atrophy. Chronic lateral and third ventriculomegaly with atrium of the LEFT lateral ventricle measuring 2.7 cm transverse without change. Unremarkable fourth ventricle and basal cisterns. White matter encephalomalacia at the RIGHT frontal lobe without significant interval change. Decreased density in the periventricular and subcortical white matter while non-specific is most likely due to chronic microangiopathy. Negative for mass effect. No intra or extra-axial hemorrhage evident. Unremarkable visualized orbital contents. No suspicious calvarial or skull base lesions. Clear paranasal sinuses and mastoid air spaces. Unremarkable scalp. IMPRESSION: Atrophy and stigmata of chronic small vessel ischemic disease. Unchanged more focal encephalomalacia at the RIGHT frontal lobe white matter. No acute intracranial process evident.
[2017-08-28 12:44] LABS: INR 1.06 (0.77-1.02)
[2017-08-28 14:05] LABS: Urine Appearance Clear; Urine Blood Negative (Negative); Urine Color Yellow; Urine Ketones Negative (Negative); Urine Protein Negative (Negative); Urine Specific Gravity 1.011 (1.010-1.030); Urine Urobilinogen Negative (Negative)
--- NOTE | 2017-08-28 14:17 | RAD ---
Indication: Weakness. Single frontal view of the chest performed at 1359 hours was reviewed. Comparison is made with previous exam dated August 02, 2017. No mediastinal shift is noted. There is cardiomegaly noted. Bilateral pleural effusions with bibasilar atelectasis is noted. No pneumothorax is noted. IMPRESSION: CARDIOMEGALY WITH BILATERAL PLEURAL EFFUSIONS AND BIBASILAR ATELECTASIS.
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
[2017-08-28 16:52] VITALS: BP 130/88
--- NOTE | 2017-08-28 18:16 | ED ---
Magda Tolentino Gabriel, scribed for Junior Resendiz MD on 08/28/17 at 1151 . Dizziness - HPI Summary HPI Summary: This patient is a 87 year old M presenting to [facility] accompanied by family with a chief complaint of dizziness since 0700 this morning. Patient reports difficulty ambulating, confusion, and SOB. Patient denies hearing loss. Patient describes his dizziness as an unsteady feeling but not as the room spinning. He states that it usually feels like this when he wakes up but it resolves, this morning it did not resolve. His son states that he recently increased his diuretic dose to twice a day. - History Of Current Complaint Chief Complaint: EDDizziness Stated Complaint: SHORT OF BREATH Time Seen by Provider: 08/28/17 11:32 Hx Obtained From: Patient Onset/Duration: Still Present Timing: Constant Severity Initially: Mild Severity Currently: Mild Aggravating Factor(s): Nothing Alleviating Factor(s): Nothing Associated Signs And Symptoms: Positive: Negative - hearing loss, Other: - ambulating, confusion, and SOB - Allergies/Home Medications Allergies/Adverse Reactions: Allergies Allergy/AdvReac Type Severity Reaction Status Date / Time Diltiazem [From Cartia XT] Allergy Unknown Unknown Verified 06/20/17 16:10 Reaction Details Atenolol Allergy Unknown Verified 06/20/17 16:10 Reaction Details Codeine Allergy Stomach Verified 06/20/17 16:10 Cramps PMH/Surg Hx/FS Hx/Imm Hx Previously Healthy: No Endocrine/Hematology History: Reports: Hx Diabetes - TYPE II- ON ORAL MEDICATION FOR Cardiovascular History: Reports: Hx Coronary Artery Disease - STENTS IN PLACE, BYPASS IN 1999, Hx Hypertension, Hx Valvular Heart Disease, Other Cardiovascular Problems/Disorders - DR. LANCE- LAST SEEN 2 WEEKS AGO Denies: Hx Pacemaker/ICD Respiratory History: Reports: Hx Pulmonary Edema Denies: Hx Asthma History: Denies: Hx Renal Disease Sensory History: Reports: Hx Cataracts, Hx Contacts or Glasses - GLASSES Denies: Hx Hearing Aid Opthamlomology History: Reports: Hx Cataracts, Hx Contacts or Glasses - GLASSES Neurological History: Reports: Hx Transient Ischemic Attacks (TIA) Psychiatric History: Denies: Hx Panic Disorder - Surgical History Surgery Procedure, Year, and Place: TONSILECTOMY, CTR-LT 09/16; BYPASS QUADRUPLE 1999,BILAT EYE LENS REPLACEMENT. CARDIAC STENTS Hx Anesthesia Reactions: No - Immunization History Date of Influenza Vaccine: 06/2017 Immunizations Up to Date: Yes Infectious Disease History: No Infectious Disease History: Denies: Traveled Outside the [place] in Last 30 Days - Social History Alcohol Use: Daily Alcohol Amount: 1 DAILY Substance Use Type: Reports: None Smoking Status (MU): Never Smoked Tobacco Have You Smoked in the Last Year: No Review of Systems ENT: Negative - hearing changes Positive: Shortness Of Breath Neurological: Other - difficulty ambulating and confusion All Other Systems Reviewed And Are Negative: Yes Physical Exam - Summary Physical Exam Summary: Appearance: The patient is well-nourished in no acute distress and in no acute pain. Skin: The skin is warm and dry and skin color reflects adequate perfusion. HEENT: The head is normocephalic and atraumatic. The pupils are equal and reactive. The conjunctivae are clear and without drainage. Nares are patent and without drainage. Mouth reveals moist mucous membranes and the throat is without erythema and exudate. The external ears are intact. The ear canals are patent and without drainage. The tympanic membranes are intact. Non fatiguing horizontal nystagmus to the left exacerbated by looking to the left. Neck: the neck is supple with full range of motion and non-tender. There are no carotid bruits. There is no neck vein distension. Respiratory: Chest is non-tender. Lungs are clear to auscultation and breath sounds are symmetrical and equal. Cardiovascular: Heart is regular rate and rhythm. There is no murmur or rub auscultated. There is no peripheral edema and pulses are symmetrical and equal. Abdomen: The abdomen is soft and non-tender. There are normal bowel sounds heard in all four quadrants and there is no organomegaly palpated. Musculoskeletal: There is no back tenderness noted. Extremities are non-tender with full range of motion. There is good capillary refill. There is no peripheral edema or calf tenderness elicited. Neurological: Patient is alert and oriented to person, place and time. The patient has symmetrical motor strength in all four extremities. Cranial nerves are grossly intact. Deep tendon reflexes are symmetrical and equal in all four extremities. Psychiatric: The patient has an appropriate affect and does not exhibit any anxiety or depression Triage Information Reviewed: Yes Vital Signs On Initial Exam: Initial Vitals Temp Pulse Resp BP Pulse Ox 97.1 F 97 20 116/93 98 08/28/17 11:08 08/28/17 11:08 08/28/17 11:08 08/28/17 11:08 08/28/17 11:08 Vital Signs Reviewed: Yes - [place] Coma Scale Coma Scale Total: 15 Diagnostics - Vital Signs Vital Signs Temp Pulse Resp BP Pulse Ox 08/28/17 11:08 97.1 F 97 20 116/93 98 - Laboratory Lab Results: Lab Results 08/28/17 08/28/17 08/28/17 Range/Units 12:10 12:10 12:10 WBC 8.6 (3.5-10.8) 10^3/ul RBC 4.22 (4.0-5.4) 10^6/ul Hgb 13.4 L (14.0-18.0) g/dl Hct 40 L (42-52) % MCV 94 (80-94) fL MCH 32 H (27-31) pg MCHC 34 (31-36) g/dl RDW 14 (10.5-15) % Plt Count 193 (150-450) 10^3/ul MPV 9 (7.4-10.4) um3 Neut % (Auto) 77.7 (38-83) % Lymph % (Auto) 12.6 L (25-47) % Bertie % (Auto) 8.7 (1-9) % Eos % (Auto) 0.3 (0-6) % Baso % (Auto) 0.7 (0-2) % Absolute Neuts (auto) 6.7 (1.5-7.7) 10^3/ul Absolute Lymphs (auto) 1.1 (1.0-4.8) 10^3/ul Absolute Monos (auto) 0.7 (0-0.8) 10^3/ul Absolute Eos (auto) 0 (0-0.6) 10^3/ul Absolute Basos (auto) 0.1 (0-0.2) 10^3/ul Absolute Nucleated RBC 0.01 10^3/ul Nucleated RBC % 0.1 INR (Anticoag Therapy) 1.06 H (0.77-1.02) Sodium 141 (133-145) mmol/L Potassium TNP Chloride 104 (101-111) mmol/L Carbon Dioxide 27 (22-32) mmol/L Anion Gap 10 (2-11) mmol/L BUN 39 H (6-24) mg/dL Creatinine 1.48 H (0.67-1.17) mg/dL Est GFR ( Amer) 57.7 (>60) Est GFR (Non-Af Amer) 44.9 (>60) BUN/Creatinine Ratio 26.4 H (8-20) Glucose 143 H (70-100) mg/dL Lactic Acid (0.5-2.0) mmol/L Calcium 9.3 (8.6-10.3) mg/dL Magnesium TNP Total Bilirubin 0.70 (0.2-1.0) mg/dL AST TNP ALT 40 (7-52) U/L Alkaline Phosphatase 85 (34-104) U/L Troponin I 0.14 H* (<0.04) ng/mL C-Reactive Protein 3.84 (< 5.00) mg/L B-Natriuretic Peptide ( - 100) pg/mL Total Protein 6.6 (6.4-8.9) g/dL Albumin 3.6 (3.2-5.2) g/dL Globulin 3.0 (2-4) g/dL Albumin/Globulin Ratio 1.2 (1-3) TSH 3.59 (0.34-5.60) mcIU/mL Urine Color Urine Appearance Urine pH (5-9) Ur Specific [place] (1.010-1.030) Urine Protein (Negative) Urine Ketones (Negative) Urine Blood (Negative) Urine Nitrate (Negative) Urine Bilirubin (Negative) Urine Urobilinogen (Negative) Ur Leukocyte Esterase (Negative) Urine Glucose (Negative) 08/28/17 08/28/17 08/28/17 Range/Units 12:10 12:10 13:23 WBC (3.5-10.8) 10^3/ul RBC (4.0-5.4) 10^6/ul Hgb (14.0-18.0) g/dl Hct (42-52) % MCV (80-94) fL MCH (27-31) pg MCHC (31-36) g/dl RDW (10.5-15) % Plt Count (150-450) 10^3/ul MPV (7.4-10.4) um3 Neut % (Auto) (38-83) % Lymph % (Auto) (25-47) % Bertie % (Auto) (1-9) % Eos % (Auto) (0-6) % Baso % (Auto) (0-2) % Absolute Neuts (auto) (1.5-7.7) 10^3/ul Absolute Lymphs (auto) (1.0-4.8) 10^3/ul Absolute Monos (auto) (0-0.8) 10^3/ul Absolute Eos (auto) (0-0.6) 10^3/ul Absolute Basos (auto) (0-0.2) 10^3/ul Absolute Nucleated RBC 10^3/ul Nucleated RBC % INR (Anticoag Therapy) (0.77-1.02) Sodium (133-145) mmol/L Potassium Chloride (101-111) mmol/L Carbon Dioxide (22-32) mmol/L Anion Gap (2-11) mmol/L BUN (6-24) mg/dL Creatinine (0.67-1.17) mg/dL Est GFR ( Amer) (>60) Est GFR (Non-Af Amer) (>60) BUN/Creatinine Ratio (8-20) Glucose (70-100) mg/dL Lactic Acid 2.6 H* (0.5-2.0) mmol/L Calcium (8.6-10.3) mg/dL Magnesium Total Bilirubin (0.2-1.0) mg/dL AST ALT (7-52) U/L Alkaline Phosphatase (34-104) U/L Troponin I (<0.04) ng/mL C-Reactive Protein (< 5.00) mg/L B-Natriuretic Peptide 3221 H ( - 100) pg/mL Total Protein (6.4-8.9) g/dL Albumin (3.2-5.2) g/dL Globulin (2-4) g/dL Albumin/Globulin Ratio (1-3) TSH (0.34-5.60) mcIU/mL Urine Color Yellow Urine Appearance Clear Urine pH 6.0 (5-9) Ur Specific [place] 1.011 (1.010-1.030) Urine Protein Negative (Negative) Urine Ketones Negative (Negative) Urine Blood Negative (Negative) Urine Nitrate Negative (Negative) Urine Bilirubin Negative (Negative) Urine Urobilinogen Negative (Negative) Ur Leukocyte Esterase Negative (Negative) Urine Glucose Negative (Negative) 08/28/17 Range/Units 13:51 WBC (3.5-10.8) 10^3/ul RBC (4.0-5.4) 10^6/ul Hgb (14.0-18.0) g/dl Hct (42-52) % MCV (80-94) fL MCH (27-31) pg MCHC (31-36) g/dl RDW (10.5-15) % Plt Count (150-450) 10^3/ul MPV (7.4-10.4) um3 Neut % (Auto) (38-83) % Lymph % (Auto) (25-47) % Bertie % (Auto) (1-9) % Eos % (Auto) (0-6) % Baso % (Auto) (0-2) % Absolute Neuts (auto) (1.5-7.7) 10^3/ul Absolute Lymphs (auto) (1.0-4.8) 10^3/ul Absolute Monos (auto) (0-0.8) 10^3/ul Absolute Eos (auto) (0-0.6) 10^3/ul Absolute Basos (auto) (0-0.2) 10^3/ul Absolute Nucleated RBC 10^3/ul Nucleated RBC % INR (Anticoag Therapy) (0.77-1.02) Sodium (133-145) mmol/L Potassium 3.6 Chloride (101-111) mmol/L Carbon Dioxide (22-32) mmol/L Anion Gap (2-11) mmol/L BUN (6-24) mg/dL Creatinine (0.67-1.17) mg/dL Est GFR ( Amer) (>60) Est GFR (Non-Af Amer) (>60) BUN/Creatinine Ratio (8-20) Glucose (70-100) mg/dL Lactic Acid (0.5-2.0) mmol/L Calcium (8.6-10.3) mg/dL Magnesium 1.9 Total Bilirubin (0.2-1.0) mg/dL AST 23 ALT (7-52) U/L Alkaline Phosphatase (34-104) U/L Troponin I (<0.04) ng/mL C-Reactive Protein (< 5.00) mg/L B-Natriuretic Peptide ( - 100) pg/mL Total Protein (6.4-8.9) g/dL Albumin (3.2-5.2) g/dL Globulin (2-4) g/dL Albumin/Globulin Ratio (1-3) TSH (0.34-5.60) mcIU/mL Urine Color Urine Appearance Urine pH (5-9) Ur Specific [place] (1.010-1.030) Urine Protein (Negative) Urine Ketones (Negative) Urine Blood (Negative) Urine Nitrate (Negative) Urine Bilirubin (Negative) Urine Urobilinogen (Negative) Ur Leukocyte Esterase (Negative) Urine Glucose (Negative) Result Diagrams: 08/28/17 12:10 08/28/17 13:51 Lab Statement: Any lab studies that have been ordered have been reviewed, and results considered in the medical decision making process. - CT ct Brain CT Interpretation Completed By: Radiologist - Atrophy and stigmata of chronic small vessel ischemic disease. Unchanged more focal encephalomalacia at the RIGHT frontal lobe white matter. No acute intracranial process evident. ED physician has reviewed this radiology report. - EKG 11:21 Cardiac Rate: NL EKG Rhythm: Sinus Rhythm - at 88 BPM EKG Interpretation: LVH with strain EKG Comparison: No Significant Change - in comparison from EKG from 11/15/15 Dizzy Course/Dx - Course Course Of Treatment: Mr. Sanders presented with some vague symptomology that he has had to some extent for several weeks and was worse this AM. His W/U was positive for CHF and I consulted Dr. Albert who spoke with Dr. Lance and they decided to increase his diuretic and D/C him. - Diagnoses Provider Diagnoses: CHF (congestive heart failure) - Provider Notifications Discussed Care Of Patient With: Darrin Arciniega Time Discussed With Above Provider: 14:30 Instructed by Provider To: Other - Dr. Arciniega has agreed to come see the patient. Discharge - Discharge Plan Condition: Stable Disposition: HOME Meds/Orders/Equipment: Home Care: Skilled Needs Location: None Selected Home Care: Skilled Needs Location: None Selected Patient Education Materials: Heart Failure (ED) Referrals: [facility] [Outside] - 3 Days Lance Rubi MD [Primary Care Provider] - Additional Instructions: Increase torsemide to 20 mg daily, take one as soon as you get home. Record daily weights. Diet seems OK. Goal is to lose a few pounds, take second torsemide 20 mg daily if needed to achieve goal. RETURN TO THE EMERGENCY DEPARTMENT FOR CHANGING OR WORSENING SYMPTOMS. The documentation as recorded by the Magda beltran Gabriel accurately reflects the service I personally performed and the decisions made by me, Junior Resendiz MD.
== END 2017-08-28 16:49 | disposition home or self-care (01) ==
LOC: ED 11:04
DX: I50.20 Unspecified systolic (congestive) heart failure (principal); G93.89 Other specified disorders of brain; N28.9 Disorder of kidney and ureter, unspecified; I35.0 Nonrheumatic aortic (valve) stenosis; R41.3 Other amnesia; I51.7 Cardiomegaly; J90 Pleural effusion, not elsewhere classified; J98.11 Atelectasis; I67.82 Cerebral ischemia
CPT/HCPCS: 36415; 70450; 71010; 80053; 81003; 83605; 83735; 83880; 84443; 84484; 85025; 85610; 86140; 93005; 99282

== ENCOUNTER 2017-09-06 17:00 | Inpatient (IN) | payer MEDICARE ==
--- OUTSIDE RECORDS SUMMARY | 2017-09-06 18:00 | XMS REPORT ---
:1930 External Reference #:[id number] Author Organization [employer] Address [address] [address] Phone [phone] Care Team Providers Name Role Phone Lance Rubi MD Primary Care Physician Unavailable Payers Type Date Identification Numbers Payment Subscriber Provider Health Maintenance Effective: Policy Number: Medicare Blue Zane Phipps ([facility] 09/03/2013 [id number] o Expires: 09/02/2014 Group Number: [id number] [address] [address] PayID: [id number] DALIA Regalado [id number] Health Maintenance Expires: Policy Number: [facility] Medicare Zane Phipps (O) 09/02/2016 [id number] Richardson Sanders Group Number: [id number] [address] [address] PayID: [id number] [place] [address] Medigap Part B Effective: 03/03/1994 Policy Number: Medicare Donald E Denman [id number] Expires: 09/03/2013 PayID: [id number] [address] [place] [address] Medigap Part B Effective: 09/03/2012 Policy Number: [facility] Zane Sanders [id number] Expires: 09/03/2013 PayID: [id number] [address] [address] DALIA Regalado [address] Medigap Part B Expires: 03/08/2008 Policy Number: [employer] Zane De Los Santos [id number] Marilyn Group Number: [id number] [address] PayID: [id number] [place] [address] Medigap Part B Effective: 03/09/2008 Policy Number: [facility] CHADD Zane Sanders [id number] Expires: 09/02/2012 PayID: [id number] [address] [address] DALIA Regalado [address] Medigap Part B Effective: 09/03/2016 Policy Number: [employer] Medicare Zane Sanders [id number] Group Number: [id number] [address] PayID: [id number] [place] [address] Problems Date Description Provider Status Onset: 06/16/2011 Benign essential hypertension Philip Lance M.D. Active Onset: 01/22/2012 Mitral valve disorder Philip Lance M.D. Active Onset: 01/22/2012 Aortic valve disorder Philip Lance M.D. Active Onset: 01/22/2012 Pure hypercholesterolemia Philip Lance M.D. Active Onset: 09/25/2012 Old myocardial infarction Philip Lance M.D. 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 day Maykel Lance Blood Pressure 11/27 Active Misc 1unit for upper Philip Monitor s arm. FAiram Inflate dispense 1 lay Lance M.D. directed Potassium Chloride 10/27 Active Tablets 20Meq 45tab 1 tablet Philip ER s twice a F. day Maykel Lance Carvedilol 03/29 Active Tablets 3.125mg 90tab 1/2 tab by s mouth F. twice a Casi, mayra Brar Fish Oil OTC 07/30 Active Capsules 1000mg [address] Jahaira Lance M.D. Tylenol 8 Hour 08/17 Active Tablets 500mg 1tabs 1 to 2 po ER qhs prn Jahaira Lance M.D. Aspirin 81 Active Tablets 81mg [address] Ordering Provider Clopidogrel Active Tablets 75mg 90tab 1 by mouth Valerie Bisulfate s every day Maykel Grant Multi Vitamin Active Tablets 1 po qd Unknown Daily Atorvastatin Active Tablets 10mg 45tab /2 by Philip Calcium s mouth F. every day Maykel Lance Metformin HCL Active Tablets 500mg 1 by mouth Unknown twice a day Furosemide 08/02 Hx Tablets 20mg 1 tab by mouth as F. - directed Casi, 08/02 as needed M.D. for weight of 186lbs or more Furosemide 01/30 Hx Tablets 20mg 30tab 1 tab by s mouth as F. - directed Ferminuser, 08/02 as needed M.D. for weight of 186lbs or more Coq10 07/04 Hx Capsules 200mg 90cap 1 by mouth E78.5 Qutayb s every day S. - ( pt does Maghaydah 08/13 not take) M.DAiram Aldactone 06/29 Hx Tablets 25mg 90tab 1 by mouth s every day FAiram Lance 11/03 M.D. Eplerenone 03/29 Hx Tablets 25mg 100ta 1 by mouth bs every day F. - Mauser, 06/29.D. Diltiazem CD 03/10 Hx Caps ER 120mg 200ca 1 by mouth 24HR ps twice a F. - day Mauser, 03/29 (stopped .. taking 03/19/15) Spironolactone 03/01 Hx Tablets 25mg 30tab 1 by mouth s every day F. - Mauser, 03/29.D. Diltiazem HCL ER 01/04 Hx Caps ER 120mg 100ca 1 cap po 24HR ps daily - F. - decreased Mauser, 03/1001/28/15 M.D. Lipitor 07/22 Hx Tablets 10mg 90tab 1 by mouth s every F. - night at r, 07/27 bedtime .D. Eplerenone 06/10 Hx Tablets 25mg 100ta 1 tablet bs po daily F. - Mauser, 03/01.D. Oxygen 03/29 Hx Misc Discontinu 799.02 e 2 l nc F. - at bedtime Mauser, 01/27.D. Eplerenone 01/19 Hx Tablets 25mg 30tab take / s tablet by F. - mouth Mauser, 06/10 daily M.D. replaces hctz Klor-Con M20 01/08 Hx Tablets 20Meq 30tab 1 tab by ER s mouth on F. - odd days Mauser, 04/03 M.D. Oxygen 12/31 Hx Misc 2L NC use 799.02 Overnight nightly [place], - with nasal M.D. 03/29 secondary to hypoxemia >19 minutes oxygen saturation <90% during sleep, lowest 81% Hydrochlorothiazid 12/31 Hx Tablets 25mg 30tab Take 1 tab 401.1 s po daily F. - Mauser, 01/19 M.D. Carvedilol 12/15 Hx Tablets 3.125mg 180ta take 1 tab 786. bs by mouth F. - twice a Mauser, 01/27 day M.D. Diltiazem CD 11/20 Hx Caps ER 120mg 100ca 1 by mouth 24HR ps every day F. - Mauser, 01/04 M.D. Diltiazem CD 06/25 Hx Caps ER 120mg 200ca 2 po qd 24HR ps F. - Mauser, 11/20 M.D. Crestor 09/25 Hx Tablets 5mg 45tab 1 by mouth s every day F. - on odd Mauser, 07/22 days. M.D. Crestor 07/15 Hx Tablets 5mg 30tab 1 po qd s F. - Mauser, 09/25 M.D. Crestor 07/02 Hx Tablets 20mg 30tab 1 po qd s F. - Mauser, 07/15 M.D. Diovan 01/21 Hx Tablets 80mg 30tab 1 po qd s F. - Mauser, 01/21.D. Diovan 01/21 Hx Tablets 80mg 100ta 1/2 po qd bs F. - Mauser, 06/12.D. Aldactone 09/14 Hx Tablets 25mg 45tab 1/2 po s qd(on hold F. - as of use, 12/3111/21/13) M.D. Diltiazem CD 08/25 Hx Caps ER 120mg 270ca 3 po qd 24HR ps F. - Mauser, 06/25 M.D. Diovan 08/09 Hx Tablets 80mg 30tab 1 [...] qd s F. - Mauser, 05/05 M.D. [facility] 01/26 Hx Tablets 10mg 90tab / tab s qd(2.5mg) F. - Mauser, 05/05 M.D. Plavix 09/06 Hx Tablets 75mg 1 po qod untial F. - 09/18/09 Mauser, 05/05 and M.D. discontinu e Lipitor 02/09 Hx Tablets 20mg 90tab one tab po s qhs F. - Mauser, 08/18 [facility]x Tablets 5mg 180ta 2 po qd bs F. - Mauser, 01/26 M.D. Norvasc 01/26 Hx Tablets 5mg 90tab 1 po qd s F. - Mauser, 02/09 M.D. [facility] 11/27 Hx Tablets 2.5mg 30tab 1 po qd s F. - Mauser, 11/27 M.D. Vitamin 11/27 Hx one po qd F. - Mauser, 11/15 M.D. Altace 11/27 Hx Capsules 10mg 30cap /2 by s mouth F. - every Mauser, 04/25 day(5 mg) M.D. Norvasc 11/27 Hx Tablets 2.5mg 180ta 2 po qd bs F. - Mauser, 01/26 M.D. Atenolol 11/27 Hx Tablets 25mg 1 po qod until F. - 12/15/08 Mauser, 12/25 and then .D. /2008 discontinu e Altace 08/07 Hx Capsules 2.5mg 90cap 1 po qd s F. - Mauser, 11/27.D. Plavix 05/22 Hx Tablets 75mg 30tab 1 PO qd s F. - Mauser, 09/06 M.D. Altace 05/22 Hx Capsules 2.5mg 90cap 1 po qd s F. - Mauser, 05/25 M.D. Nitro-Dur 05/13 Hx Patches 0.2mg/HR 30uni 1 patch qd 24HR ts F. - Ferminuser, 05/22 on . in the am, off in the pm [...] Hx Tablets 10mg 90tab 1 po qd s F. - Mauser, 09/27 M.D. Lipitor 11/13 Hx Tablets 80mg 90tab 1 po qd s Jahaira aLnce, 01/15 M.D. Norvasc 07/12 Hx Tablets 10mg [...] 2 po qd Jahaira Lance, 05/25 M.D. /2007 KCL 12/06 Hx Tablets 20Meq 180ta 2 po qd Jahaira Lance, 06/14 M.D. /2005 KCL 11/13 Hx Tablets 40meq 1 po bid Jahaira Lance, 12/06 M.D. Lipitor 09/22 Hx Tablets 40mg 90tab 1 po qd Jahaira Lance, 11/13 M.D. Vytorin 07/18 Hx Tablets 10mg;40 mg 90tab 1 po qd Jahaira Lance, 09/22 M.D. KCL 06/20 Hx Tablets 40Meq 180ta 1 po qd Jahaira Lance, 11/13 M.D. Lipitor 05/05 Hx Tablets 80mg 30tab 1 po qd star Lance, 07/18 M.D. KCL 05/05 Hx Tablets 20Meq 30tab one po qd Jahaira Lance, 06/20 M.D. Triamterene & 10/15 Hx Capsules 25mg;37.5 90cap 1 po qd HCT mg star Lance, 07/12 M.D. HCTZ 02/20 Hx 25mg 30uni migdalia Lance, 02/14 M.D. Aspirin - Buffered 02/19 Hx Tablets 325mg 100ta /2 po qd bs Jahaira Lance, 10/29 M.D. /2013 Altace 02/19 Hx 20mg 30uni one qd migdalia Lance, 01/09 M.D. /2007 Atenolol 02/19 Hx Tablets 25mg 90tab take one s tablet F. - daily Casi, 07/12 M.D. HCTZ 02/19 Hx 25mg 90uni 1 PO qd migdalia Lance, 02/20 M.D. Norvasc 02/19 Hx Tablets 5mg 30tab one qd s Jahaira Lance, 07/12 M.D. Lipitor 02/19 Hx Tablets 40mg 30tab one qd s Jahaira Lance, 05/05 M.D. Diuretic pt unsure 02/19 Hx 37.5/25 30uni one qd name of /2002 migdalia Lance, 04/22 M.D. [...] F. - other day Mauser, 10/27 M.D. Amlodipine Hx Tablets 2.5mg 270ta 1 tablet Philip Besylate /0000 bs daily F. - (hold as Mauser, 08/15 of .D) Medications Administered in Office Medication Date Status [...] Millicuries Vital Signs Date Vital Result Comment 08/30/2017 Height 73 inches 6'1" Weight 184.00 lb with shoes Heart Rate 86 /min irreg BP Systolic Sitting 124 mmHg Lue reg cuff BP Diastolic Sitting 92 mmHg Lue reg cuff BP Systolic Standing 120 mmHg Lue reg cuff BP Diastolic Standing 94 mmHg Lue reg cuff Respiratory Rate 17 /min O2 % BldC Oximetry 90 % at room air BMI (Body Mass Index) 24.3 kg/m2 Ejection Fraction 40-45% date 06/12/17 ECHO 08/20/2017 Height 73 inches 6'1" Weight 190.25 [...] Test Result H/L Range Note Laboratory test 08/20/2017 B-Type Natriuretic 2305 pg/mL High 1 finding Peptide BNP Comp Metabolic Panel 08/20/2017 Sodium 142 mmol/L 133-145 Potassium 3.9 mmol/L 3.5-5.0 Chloride 104 mmol/L 101-111 Co2 Carbon Dioxide 30 mmol/L 22-32 Anion Gap 8 mmol/L 2-11 Glucose 105 mg/dL High 70-100 Blood Urea Nitrogen 29 mg/dL High 6-24 Creatinine 1.47 mg/dL High 0.67-1.17 BUN/Creatinine Ratio 19.7 8-20 Calcium 9.2 mg/dL 8.6-10.3 Total Protein 6.0 g/dL Low 6.4-8.9 Albumin 3.5 g/dL 3.2-5.2 Globulin 2.5 g/dL 2-4 Albumin/Globulin Ratio 1.4 1-3 Total Bilirubin 0.50 mg/dL 0.2-1.0 Alkaline Phosphatase 84 U/L 34-104 Alt 47 U/L 7-52 Ast 35 U/L 13-39 Egfr Non- 45.2 >60 Egfr 58.1 >60 2 Laboratory test finding 08/20/2017 Magnesium 1.9 mg/dL 1.9-2.7 CBC Auto Diff 08/02/2017 White Blood Count [...] Blood Cells % 0 Lipid Panel - [facility] 08/02/2017 Creatine Kinase(CK) 186 U/L 10-223 Comp [...] Egfr Non- 53.0 >60 Egfr 68.2 >60 3 Lipid Profile (Trig/Chol/HDL) 08/02/2017 Triglycerides 145 mg/dL 4 Cholesterol 143 mg/dL 5 HDL Cholesterol 43.6 mg/dL 6 LDL Cholesterol 70 mg/dL 7 Laboratory test finding 08/02/2017 B-Type Natriuretic Peptide BNP 1946 pg/ mL High 8 Magnesium 2.2 mg/dL 1.9-2.7 TSH (Thyroid Stim Horm) 3.06 mcIU/mL 0.34-5.60 Laboratory test finding 01/30/2017 B-Type Natriuretic 621 pg/mL High 9 Peptide BNP Basic Metabolic Panel 01/30/2017 Sodium 139 mmol/L 133-145 Potassium 4.1 mmol/L 3.5-5.0 Chloride 104 mmol/L 101-111 Co2 Carbon Dioxide 28 mmol/L 22-32 Anion Gap 7 mmol/L 2-11 Glucose 131 mg/dL High 70-100 Blood Urea Nitrogen 21 mg/dL 6-24 Creatinine 1.05 mg/dL 0.67-1.17 BUN/Creatinine Ratio 20.0 8-20 Calcium 9.1 mg/dL 8.6-10.3 Egfr Non- 66.8 >60 Egfr 85.9 >60 10 Laboratory test finding 01/30/2017 Magnesium 1.9 mg/dL 1.9-2.7 11 CBC Auto Diff 01/30/2017 White Blood Count [...] Blood Cells % 0 Lipid Panel - [facility] 02/08/2016 Creatine Kinase(CK) 96 U/L 10-223 12 Comp Metabolic Panel 02/08/2016 Sodium 139 mmol/L [...] Egfr Non- 69.2 >60 Egfr 89.1 >60 13 Lipid Profile (Trig/Chol/HDL) 02/08/2016 Triglycerides 131 mg/dL 14 Cholesterol 146 mg/dL 15 HDL Cholesterol 44.2 mg/dL 16 LDL Cholesterol 76 mg/dL 17 Laboratory test finding 04/16/2015 Blood Urea Nitrogen BUN 22 mg/dL 6-24 TSH (Thyroid Stim Horm) 3.25 ?IU/mL 0.34-5.60 Creatinine 04/16/2015 Creatinine 1.15 mg/dL 0.67-1.17 Egfr Non- 60.3 >60 Egfr 77.5 >60 18 CBC Auto Diff 01/12/2015 White Blood Count [...] Egfr Non- 65.0 >60 Egfr 83.6 >60 19 Vitamin B12 And Folate Serum 01/12/2015 Vitamin B12 546 pg/mL 180-914 20 Folic Acid (Folate) > 20.00 ng/mL >3.99 Laboratory test finding 01/12/2015 Creatine Kinase(CK) 102 U/L 10-223 B-Type Natriuretic Peptide BNP 176 pg/mL 21 Magnesium 2.0 mg/dL 1.9-2.7 Order 09/04/2014 Echocardiogram <pending> Basic Metabolic Panel 07/20/2014 Sodium 134 mmol/L 133-145 Potassium 4.3 mmol/L 3.5-5.0 22 Chloride 99 mmol/L Low 101-111 Co2 Carbon Dioxide 29 mmol/L 22-32 Anion Gap 6 mmol/L 2-11 Glucose 235 mg/dL High 70-100 Blood Urea Nitrogen 21 mg/dL 6-24 Creatinine 1.14 mg/dL 0.67-1.17 BUN/Creatinine Ratio 18.4 8-20 Calcium 9.1 mg/dL 8.6-10.3 Egfr Non- 61.1 >60 Egfr 78.5 >60 23 Laboratory test finding 07/06/2014 Magnesium 1.9 mg/dL [...] Egfr Non- 65.7 >60 Egfr 84.5 >60 24 CBC Auto Diff 07/06/2014 White Blood Count [...] Blood Cells % 0 Lipid Panel - [facility] 04/20/2014 Creatine Kinase 112 U/L 10-223 25, 26 Comp Metabolic Panel 04/20/2014 Sodium 139 mmol/L 133-145 25 Potassium 4.3 mmol/L 3.7-5.6 25 Chloride 104 mmol/L 101-111 25 Co2 Carbon Dioxide 30 mmol/L 22-32 25 Anion Gap 5 mmol/L 2-11 25 Glucose 137 mg/dL High 70-100 25 Blood Urea Nitrogen 16 mg/dL 6-24 25 Creatinine 1.17 mg/dL 0.67-1.17 25 BUN/Creatinine Ratio 13.7 8-20 25 Calcium 9.3 mg/dL 8.6-10.3 25 Total Protein 7.3 g/dL 6.4-8.9 25 Albumin 3.8 g/dL 3.2-5.2 25 Globulin 3.5 g/dL 2-4 25 Albumin/Globulin Ratio 1.1 1-3 25 Total Bilirubin 0.50 mg/dL 0.2-1.0 25 Alkaline Phosphatase 71 U/L 34-104 25 Alt 22 U/L 7-52 25 Ast 20 U/L 13-39 25 Egfr Non- 59.2 >60 25 Egfr 76.2 >60 25, 27 Lipid Profile (Trig/Chol/HDL) 04/20/2014 Triglycerides 169 mg/dL 25, 28 Cholesterol 169 mg/dL 25, 29 HDL Cholesterol 44.3 mg/dL 25, 30 LDL Cholesterol 91 mg/dL 25, 31 Basic Metabolic Panel 02/05/2014 Sodium 138 mmol/L 133-145 Potassium 4.1 mmol/L 3.7-5.6 Chloride 104 mmol/L 101-111 Co2 Carbon Dioxide 29 mmol/L 22-32 Anion Gap 5 mmol/L 2-11 Glucose 111 mg/dL High 70-100 Blood Urea Nitrogen 17 mg/dL 6-24 Creatinine 1.15 mg/dL 0.67-1.17 BUN/Creatinine Ratio 14.8 8-20 Calcium 9.3 mg/dL 8.6-10.3 Egfr Non- 60.6 >60 Egfr 77.9 >60 32 Basic Metabolic Panel 01/16/2014 Sodium 139 mmol/L 133-145 33 Potassium 3.5 mmol/L Low 3.7-5.6 33 Chloride 102 mmol/L 101-111 33 Co2 Carbon Dioxide 30 mmol/L 22-32 33 Anion Gap 7 mmol/L 2-11 33 Glucose 190 mg/dL High 70-100 33 Blood Urea Nitrogen 20 mg/dL 6-24 33 Creatinine 1.12 mg/dL 0.67-1.17 33 BUN/Creatinine Ratio 17.9 8-20 33 Calcium 8.7 mg/dL 8.6-10.3 33 Egfr Non- 62.5 >60 33 Egfr 80.3 >60 33, 34 Basic Metabolic Panel 01/08/2014 Sodium 138 mmol/L 133-145 Potassium 3.3 mmol/L Low 3.7-5.6 Chloride 102 mmol/L 101-111 Co2 Carbon Dioxide 29 mmol/L 22-32 Anion Gap 7 mmol/L 2-11 Glucose 126 mg/dL High 70-100 Blood Urea Nitrogen 18 mg/dL 6-24 Creatinine 1.10 mg/dL 0.67-1.17 BUN/Creatinine Ratio 16.4 8-20 Calcium 9.2 mg/dL 8.6-10.3 Egfr Non- 63.8 >60 Egfr 82.0 >60 35 Laboratory test finding 10/29/2013 B Type Natriuretic Peptide 73 pg/mL 36 Creatine Kinase 100 U/L 10-223 CBC Auto [...] Lipid Profile (Trig/Chol/HDL) 10/29/2013 Triglycerides 166 mg/dL 37 Cholesterol 154 mg/dL 38 HDL Cholesterol 46.9 mg/dL 39 LDL Cholesterol 74 mg/dL 40 Comp Metabolic Panel 10/29/2013 Sodium 138 mmol/L [...] Egfr Non- 55.5 >60 Egfr 71.4 >60 41 Basic Metabolic Panel 10/17/2013 Sodium 138 mmol/L 133-145 Potassium 4.1 mmol/L 3.7-5.6 Chloride 103 mmol/L 101-111 Co2 Carbon Dioxide 27 mmol/L 22-32 Anion Gap 8 mmol/L 2-11 Glucose 116 mg/dL High 70-100 Blood Urea Nitrogen 23 mg/dL 6-24 Creatinine 1.26 mg/dL High 0.67-1.17 BUN/Creatinine Ratio 18.3 8-20 Calcium 9.4 mg/dL 8.6-10.3 Egfr Non- 54.5 >60 Egfr 70.1 >60 42 Lipid Panel - [facility] 07/29/2012 Creatine Kinase 118 U/L 0-200 43 Comp Metabolic Panel 07/29/2012 Sodium 138 mmol/L [...] 1.3 1-3 Total Bilirubin 0.5 mg/dL 0.1-1.0 44 Alkaline Phosphatase 75 U/L 30-110 Alt 46 U/L 14-54 Ast 33 U/L 12-42 Egfr Non- 52.7 >60 Egfr 67.8 >60 45 Lipid Profile (Trig/Chol/HDL) 07/29/2012 Triglycerides 282 mg/dL High 40- 200 Cholesterol 195 mg/dL Less than 200 HDL Cholesterol 46 mg/dL 40-60 46 Cholesterol/HDL Ratio 4.2 AVERAGE 1-4.44 LDL Cholesterol 92.6 mg/dL Less Than 100 47 Comp Metabolic Panel 06/14/2012 Sodium 138 mmol/L [...] 1.3 1-3 Total Bilirubin 0.6 mg/dL 0.1-1.0 48 Alkaline Phosphatase 84 U/L 30-110 Alt 34 U/L 14-54 Ast 26 U/L 12-42 Egfr Non- 63.9 >60 Egfr 82.2 >60 49 Lipid Profile (Trig/Chol/HDL) 06/14/2012 Triglycerides 235 mg/dL High 40- 200 Cholesterol 191 mg/dL Less than 200 50 HDL Cholesterol 49 mg/dL 40-60 51 Cholesterol/HDL Ratio 3.9 AVERAGE 1-4.44 LDL Cholesterol [...] mmol/L 22-32 Anion Gap 5.0 mmol/L 2-11 52 Glucose 133 mg/dL High 70-100 BUN 21 mg/dL 6-24 Creatinine 1.1 mg/dL 0.50-1.40 One Over Creatinine 0.90 BUN/Creatinine Ratio 19.1 8-20 Calcium 9.4 mg/dL 8.1-9.9 eGFR Non- 64.1 > 60 eGFR 82.4 > 60 53 Lipid Profile (Trig/Chol/HDL) 04/17/2011 Triglyceride 189 mg/dL 40-200 54 Cholesterol 161 mg/dL Less Than 200 54, 55 High Density Lipoprotein 42 mg/dL 40-60 54, 56 Low Density Lipoprotein 81 mg/dL Less Than 100 54, 57 Cholesterol/HDL Ratio 3.83 AVERAGE 1-4.97 54 Laboratory test finding 04/17/2011 CPK (Creatine Kinase) 161 U/L 0-200 54 Comp Metabolic Panel 04/17/2011 Sodium 141 mmol/L 135-145 54 Potassium 4.2 mmol/L 3.5-5.0 54 Chloride 106 mmol/L 101-111 54 Co2 (Carbon Dioxide) 29.0 mmol/L 22-32 54 Anion Gap 6.0 mmol/L 2-11 54, 58 Glucose 115 mg/dL High 70-100 54 BUN 14 mg/dL 6-24 54 Creatinine 1.00 mg/dL 0.50-1.40 54 One Over Creatinine 1.00 54 BUN/Creatinine Ratio 14.0 8-20 54 Calcium 9.2 mg/dL 8.1-9.9 54 Total Protein 6.7 GM/DL 6.2-8.1 54 Albumin 4.0 GM/DL 3.2-5.2 54 Globulin 2.7 GM/DL 2-4 54 Albumin/Globulin Ratio 1.5 1-3 54 Bilirubin Total 0.8 mg/dL 0.4-1.5 54, 59 Alkaline Phosphatase 80 U/L 39-117 54 Alt (SGPT) 22 U/L 17-63 54 Ast (Sgot) 22 U/L 12-42 54 eGFR Non- 71.5 > 60 54 eGFR 92.0 > 60 54, 60 Lipid Panel - [facility] 10/19/2010 CPK (Creatine Kinase) 135 U/L 0-200 Comp Metabolic Panel 10/19/2010 Sodium 138 mmol/L 135-145 Potassium 3.9 mmol/L 3.5-5.0 Chloride 104 mmol/L 101-111 Co2 (Carbon Dioxide) 27.0 mmol/L 22-32 Anion Gap 7.0 mmol/L 2-11 61 Glucose 122 mg/dL High 70-100 BUN 16 mg/dL 6-24 Creatinine 1.10 mg/dL 0.50-1.40 One Over Creatinine 0.90 BUN/Creatinine Ratio 14.5 8-20 Calcium 8.7 mg/dL 8.1-9.9 Total Protein 6.8 GM/DL 6.2-8.1 Albumin 3.7 GM/DL 3.2-5.2 Globulin 3.1 GM/DL 2-4 Albumin/Globulin Ratio 1.2 1-3 Bilirubin Total 0.6 mg/dL 0.4-1.5 62 Alkaline Phosphatase 96 U/L 39-117 Alt (SGPT) 31 U/L 17-63 Ast (Sgot) 24 U/L 12-42 eGFR Non- 64.2 > 60 eGFR 82.6 > 60 63 Lipid Profile (Trig/Chol/HDL) 10/19/2010 Triglyceride 154 mg/dL 40-200 Cholesterol 149 mg/dL Less Than 200 64 High Density Lipoprotein 38 mg/dL Low 40-60 65 Cholesterol/HDL Ratio 3.92 AVERAGE 1-4.97 Low Density Lipoprotein 80 mg/dL Less Than 100 66 CBC With Electronic Diff 08/05/2010 White Blood Count 9.4 CUMM 4.8-10.8 54 Red Cell Count 4.36 CUMM Low 4.6-6.2 54 Hemoglobin 14.1 g/dL 14.0-18.0 54 Hematocrit 41 % Low 42-52 54 Mean Corpuscular Volume 94 um3 80-94 54 Mean Corpuscular Hemoglob 32 pg High 27-31 54 Mean Corpuscular HGB Cone 34 g/dL 32-36 54 Redcell Distribution WDTH 13 % 10.5-15 54 Platelet Count 204 CUMM 150-450 54 Mean Platelet Volume 7.0 um3 Low 7.4-10.4 54 Gran % 59.9 % 38-83 54 Lymph % 19.0 % Low 25-47 54 Mononuclear % 10.3 % High 1-9 54 Eosinophil % 10.2 % High 0-6 54 Basophil % 0.6 % 0-2 54 Abs Lymphs 1.8 1.0-4.8 54 Abs Mononuclear 1.0 High 0-0.8 54 Absolute Neutrophil Count 5.6 1.5-7.7 54 Abs Eosinophils 1.0 High 0-0.6 54 Abs Basophils 0.1 0-0.2 54, 67 Laboratory test finding 08/05/2010 CPK (Creatine Kinase) 116 U/L 0-200 54 Lipid Profile 08/05/2010 Triglyceride 202 mg/dL High 40-200 54 (Trig/Chol/HDL) Cholesterol 199 mg/dL Less Than 200 54, 68 High Density Lipoprotein 40 mg/dL 40-60 54, 69 Cholesterol/HDL Ratio 4.98 AVERAGE High 1-4.97 54 Low Density Lipoprotein 119 mg/dL High Less Than 100 54, 70 Comp Metabolic Panel 08/05/2010 Sodium 136 mmol/L 135-145 54 Potassium 3.9 mmol/L 3.5-5.0 54 Chloride 101 mmol/L 101-111 54 Co2 (Carbon Dioxide) 27.0 mmol/L 22-32 54 Anion Gap 8.0 mmol/L 2-11 54, 71 Glucose 115 mg/dL High 70-100 54, 72 BUN 16 mg/dL 6-24 54 Creatinine 1.00 mg/dL 0.50-1.40 54 One Over Creatinine 1.00 54 BUN/Creatinine Ratio 16.0 8-20 54 Calcium 8.7 mg/dL 8.1-9.9 54 Total Protein 7.1 GM/DL 6.2-8.1 54 Albumin 3.7 GM/DL 3.2-5.2 54 Globulin 3.4 GM/DL 2-4 54 Albumin/Globulin Ratio 1.1 1-3 54 Bilirubin Total 0.6 mg/dL 0.4-1.5 54, 73 Alkaline Phosphatase 97 U/L 39-117 54 Alt (SGPT) 26 U/L 17-63 54 Ast (Sgot) 24 U/L 12-42 54 eGFR Non- 76.2 > 60 54 eGFR 92.2 > 60 54, 74 Basic Metabolic Panel 07/15/2009 Sodium 140 mmol/L 135-145 75 Potassium 4.2 mmol/L 3.5-5.0 75 Chloride 106 mmol/L 101-111 75 Co2 (Carbon Dioxide) 29.0 mmol/L 22-32 75 Anion Gap 5.0 mmol/L 2-11 75, 76 Glucose 95 mg/dL 70-100 75, 77 BUN 20 mg/dL 6-24 75 Creatinine 1.10 mg/dL 0.50-1.40 75 One Over Creatinine 0.90 75 BUN/Creatinine Ratio 18.2 8-20 75 Calcium 9.1 mg/dL 8.1-9.9 75, 78 eGFR Non- 68.5 > 60 75 eGFR 82.8 > 60 75, 79 Lipid Profile (Trig/Chol/HDL) 02/08/2009 Triglyceride 116 mg/dL 40-200 Cholesterol 131 mg/dL Less Than 200 80 High Density Lipoprotein 38 mg/dL Low 40-60 81 Cholesterol/HDL Ratio 3.45 AVERAGE 1-4.97 Low Density Lipoprotein 70 mg/dL Less Than 100 82 Comp Metabolic Panel 02/08/2009 Sodium 141 mmol/L 135-145 Potassium 4.4 mmol/L 3.5-5.0 Chloride 108 mmol/L 101-111 Co2 (Carbon Dioxide) 27.0 mmol/L 22-32 Anion Gap 6.0 mmol/L 2-11 83 Glucose 100 mg/dL 70-100 84 BUN 23 mg/dL 6-24 Creatinine 1.10 mg/dL 0.50-1.40 One Over Creatinine 0.90 BUN/Creatinine Ratio 20.9 High 8-20 Calcium 8.8 mg/dL 8.1-9.9 85 Total Protein 6.3 GM/DL 6.2-8.1 Albumin 3.7 GM/DL 3.2-5.2 Globulin 2.6 GM/DL 2-4 Albumin/Globulin Ratio 1.4 1-3 Bilirubin Total 1.0 mg/dL 0.4-1.5 86 Alkaline Phosphatase 104 U/L 39-117 Alt (SGPT) 45 U/L 17-63 Ast (Sgot) 41 U/L 12-42 Lipid Panel - [facility] 02/08/2009 CPK (Creatine Kinase) 163 U/L 0-200 Laboratory test finding 08/17/2008 CPK (Creatine Kinase) 171 U/L 0-200 87 Lipid Profile (Trig/Chol/HDL) 08/17/2008 Triglyceride 171 mg/dL 40-200 87 Cholesterol 149 mg/dL Less Than 200 87, 88 High Density Lipoprotein 39 mg/dL Low 40-60 87, 89 Cholesterol/HDL Ratio 3.82 AVERAGE 1-4.97 87 Low Density Lipoprotein 76 mg/dL Less Than 100 87, 90 Comp Metabolic Panel 08/17/2008 Sodium 140 mmol/L 135-145 87 Potassium 4.3 mmol/L 3.5-5.0 87 Chloride 107 mmol/L 101-111 87 Co2 (Carbon Dioxide) 30.0 mmol/L 22-32 87 Anion Gap 3.0 mmol/L 2-11 87, 91 Glucose 107 mg/dL High 70-100 87, 92 BUN 23 mg/dL 6-24 87 Creatinine 1.19 mg/dL 0.50-1.40 87 One Over Creatinine 0.80 87 BUN/Creatinine Ratio 19.3 8-20 87 Calcium 9.0 mg/dL 8.1-9.9 87, 93 Total Protein 6.9 GM/DL 6.2-8.1 87 Albumin 3.7 GM/DL 3.2-5.2 87 Globulin 3.2 GM/DL 2-4 87 Albumin/Globulin Ratio 1.2 1-3 87 Bilirubin Total 0.4 mg/dL 0.4-1.5 87 Alkaline Phosphatase 74 U/L 39-117 87 Alt (SGPT) 26 U/L 17-63 87 Ast (Sgot) 22 U/L 12-42 87 Lipid Profile (Trig/Chol/HDL) 02/18/2008 Triglyceride 171 mg/dL 40-200 87 Cholesterol 143 mg/dL Less Than 200 87, 94 High Density Lipoprotein 29 mg/dL Low 40-60 87, 95 Cholesterol/HDL Ratio 4.93 AVERAGE 1-4.97 87 Low Density Lipoprotein 80 mg/dL Less Than 100 87, 96 Comp Metabolic Panel 02/18/2008 Sodium 138 mmol/L 135-145 87 Potassium 5.0 mmol/L 3.5-5.0 87 Chloride 107 mmol/L 101-111 87 Co2 (Carbon Dioxide) 26.0 mmol/L 22-32 87 Anion Gap 5.0 mmol/L 2-11 87, 97 Glucose 110 mg/dL High 70-105 87 BUN 34 mg/dL High 6-24 87 Creatinine 1.5 mg/dL High 0.5-1.4 87 One Over Creatinine 0.66 87 BUN/Creatinine Ratio 22.7 High 8-20 87 Calcium 9.0 mg/dL 8.1-9.9 87, 98 Total Protein 6.7 GM/DL 6.2-8.1 87 Albumin 3.8 GM/DL 3.2-5.2 87 Globulin 2.9 GM/DL 2-4 87 Albumin/Globulin Ratio 1.3 1-3 87 Bilirubin Total 0.6 mg/dL 0.4-1.5 87 Alkaline Phosphatase 68 U/L 39-117 87 Alt (SGPT) 19 U/L 17-63 87 Ast (Sgot) 16 U/L 12-42 87 Lipid Panel - [facility] 02/18/2008 CPK (Creatine Kinase) 147 U/L 0-200 87 Lipid Panel - [facility] 09/26/2007 CPK (Creatine Kinase) 137 U/L 0-200 87 Comp Metabolic Panel 09/26/2007 One Over Creatinine 0.71 87 Anion Gap 5.0 mmol/L 2-11 87, 99 Albumin/Globulin Ratio 1.2 1-3 87 Albumin 3.6 GM/DL 3.2-5.2 87 Alkaline Phosphatase 72 U/L 39-117 87 Alt (SGPT) 25 U/L 17-63 87 Ast (Sgot) 18 U/L 12-42 87 BUN 20 mg/dL 6-24 87 Calcium 8.7 mg/dL 8.7-10.2 87 Chloride 106 mmol/L 101-111 87 Co2 (Carbon Dioxide) 29.0 mmol/L 22-32 87 Globulin 2.9 GM/DL 2-4 87 Glucose 110 mg/dL High 70-105 87 Potassium 4.6 mmol/L 3.5-5.0 87 Sodium 140 mmol/L 135-145 87 Bilirubin Total 0.3 mg/dL Low 0.4-1.5 87 Total Protein 6.5 GM/DL 6.2-8.1 87 BUN/Creatinine Ratio 14.3 8-20 87 Creatinine 1.4 mg/dL 0.5-1.4 87 Lipid Profile 09/26/2007 Cholesterol/HDL Ratio 5.10 AVERAGE High 1-4.97 87 (Trig/Chol/HDL) Cholesterol 158 mg/dL Less Than 200 87, 100 Triglyceride 193 mg/dL 40-200 87 High Density Lipoprotein 31 mg/dL Low 40-60 87, 101 Low Density Lipoprotein 88 mg/dL Less Than 100 87, 102 Comp Metabolic Panel 03/18/2007 One Over Creatinine 0.76 87 Anion Gap 5.0 mmol/L 2-11 87, 103 Albumin/Globulin Ratio 1.4 1-3 87 Albumin 3.8 GM/DL 3.2-5.2 87 Alkaline Phosphatase 71 U/L 39-117 87 Alt (SGPT) 19 U/L 17-63 87 Ast (Sgot) 19 U/L 12-42 87 BUN 25 mg/dL High 6-24 87 Calcium 8.7 mg/dL 8.7-10.2 87 Chloride 107 mmol/L 101-111 87 Co2 (Carbon Dioxide) 26.0 mmol/L 22-32 87 Globulin 2.8 GM/DL 2-4 87 Glucose 109 mg/dL High 70-105 87 Potassium 4.7 mmol/L 3.5-5.0 87 Sodium 138 mmol/L 135-145 87 Bilirubin Total 0.8 mg/dL 0.4-1.5 87 Total Protein 6.6 GM/DL 6.2-8.1 87 BUN/Creatinine Ratio 19.2 8-20 87 Creatinine 1.3 mg/dL 0.5-1.4 87 Lipid Profile 03/18/2007 Cholesterol/HDL Ratio 3.09 AVERAGE 1-4.97 87 (Trig/Chol/HDL) Cholesterol 108 mg/dL Less Than 200 87, 104 Triglyceride 73 mg/dL 40-200 87 High Density Lipoprotein 35 mg/dL Low 40-60 87, 105 Low Density Lipoprotein 58 mg/dL Less Than 100 87, 106 Lipid Panel - [facility] 03/18/2007 CPK (Creatine Kinase) 309 U/L High 0-200 87 Lipid Profile 01/14/2007 Cholesterol/HDL Ratio 3.64 AVERAGE 1-4.97 87 (Trig/Chol/HDL) Cholesterol 131 mg/dL Less Than 200 87, 107 Triglyceride 110 mg/dL 40-200 87 High Density Lipoprotein 36 mg/dL Low 40-60 87, 108 Low Density Lipoprotein 73 mg/dL Less Than 100 87, 109 Comp Metabolic Panel 01/14/2007 One Over Creatinine 0.90 87 Anion Gap 8.0 mmol/L 2-11 87, 110 Albumin/Globulin Ratio 1.2 1-3 87 Albumin 3.6 GM/DL 3.2-5.2 87 Alkaline Phosphatase 75 U/L 39-117 87 Alt (SGPT) 19 U/L 17-63 87 Ast (Sgot) 22 U/L 12-42 87 BUN 24 mg/dL 6-24 87 Calcium 8.7 mg/dL 8.7-10.2 87 Chloride 103 mmol/L 101-111 87 Co2 (Carbon Dioxide) 29.0 mmol/L 22-32 87 Globulin 2.9 GM/DL 2-4 87 Glucose 112 mg/dL High 70-105 87 Potassium 4.3 mmol/L 3.5-5.0 87 Sodium 140 mmol/L 135-145 87 Bilirubin Total 0.7 mg/dL 0.4-1.5 87 Total Protein 6.5 GM/DL 6.2-8.1 87 BUN/Creatinine Ratio 21.8 High 8-20 87 Creatinine 1.1 mg/dL 0.5-1.4 87 Lipid Panel - [facility] 01/14/2007 CPK (Creatine Kinase) 303 U/L High 0-200 87 Lipid Profile 11/12/2006 Cholesterol/HDL Ratio 4.68 AVERAGE 1-4.97 87 (Trig/Chol/HDL) Cholesterol 178 mg/dL Less Than 200 87, 111 Triglyceride 229 mg/dL High 40-200 87 High Density Lipoprotein 38 mg/dL Low 40-60 87, 112 Low Density Lipoprotein 94 mg/dL Less Than 100 87, 113 Comp Metabolic Panel 11/12/2006 One Over Creatinine 0.76 87 Anion Gap 7.0 mmol/L 2-11 87, 114 Albumin/Globulin Ratio 1.4 1-3 87 Albumin 4.0 GM/DL 3.2-5.2 87 Alkaline Phosphatase 82 U/L 39-117 87 Alt (SGPT) 27 U/L 17-63 87 Ast (Sgot) 22 U/L 12-42 87 BUN 23 mg/dL 6-24 87 Calcium 9.1 mg/dL 8.7-10.2 87 Chloride 107 mmol/L 101-111 87 Co2 (Carbon Dioxide) 29.0 mmol/L 22-32 87 Globulin 2.8 GM/DL 2-4 87 Glucose 109 mg/dL High 70-105 87 Potassium 4.6 mmol/L 3.5-5.0 87 Sodium 143 mmol/L 135-145 87 Bilirubin Total 0.5 mg/dL 0.4-1.5 87 Total Protein 6.8 GM/DL 6.2-8.1 87 BUN/Creatinine Ratio 17.7 8-20 87 Creatinine 1.3 mg/dL 0.5-1.4 87 Laboratory test finding 11/12/2006 CPK (Creatine Kinase) 189 U/L 0-200 87 Laboratory test finding 07/25/2006 Magnesium 2.2 mg/dL 1.7-2.6 Basic Metabolic Panel 01/09/2006 One Over Creatinine 0.76 87 Anion Gap 6.0 mmol/L 2-11 87, 115 BUN 24 mg/dL 6-24 87 Calcium 9.0 mg/dL 8.7-10.2 87 Chloride 104 mmol/L 101-111 87 Co2 (Carbon Dioxide) 30.0 mmol/L 22-32 87 Glucose 103 mg/dL 70-105 87 Potassium 4.1 mmol/L 3.5-5.0 87 Sodium 140 mmol/L 135-145 87 BUN/Creatinine Ratio 18.5 8-20 87 Creatinine 1.3 mg/dL 0.5-1.4 87 1 >100 to <200 pg/mL: likely compensated congestive heart failure (CHF) 200 to 400 pg/mL: likely moderate CHF >400 pg/mL: likely moderate to severe CHF 2 Because ethnic data is not always readily [...] 15-29 5 Kidney failure <15 (or dialysis) 3 Because ethnic data is not always [...] 5 Kidney failure <15 (or dialysis) 4 Desirable: <150 Borderline High: 150-199 High: 200-499 Very High: >500 5 Desirable: <200 Borderline High: 200-239 High: >239 6 Low: <40 Desirable: 40-60 High: >60 7 Desirable: <100 Near Optimal: 100-129 Borderline High: 130-159 High: 160-189 Very High: >189 8 >100 to <200 pg/mL: likely compensated congestive heart failure (CHF) 200 to 400 pg/mL: likely moderate CHF >400 pg/mL: likely moderate to severe CHF 9 >100 to <200 pg/mL: likely compensated congestive heart failure (CHF) 200 to 400 pg/mL: likely moderate CHF >400 pg/mL: likely moderate to severe CHF 10 Because ethnic data is not always [...] 5 Kidney failure <15 (or dialysis) 11 non-fasting today cc pmd 12 Fasting in next 1-2 weeks 13 Because ethnic data is not always readily [...] 15-29 5 Kidney failure <15 (or dialysis) 14 Desirable <150 Borderline high 150-199 High 200-499 Very High >500 15 Desirable <200 Borderline high 200-239 High >239 16 Low <40 Desirable: 40-60 High: >60 17 Desirable: <100 mg/dL Near Optimal: 100-129 mg/dL Borderline High: 130-159 mg/dL High: 160-189 mg/dL Very High: >189 mg/dL 18 Because ethnic data is not always readily [...] 15-29 5 Kidney failure <15 (or dialysis) 19 Because ethnic data is not always readily [...] 15-29 5 Kidney failure <15 (or dialysis) 20 Normal Range 180 to 914 Indeterminate Range 145 to 180 Deficient Range <145 21 >100 to <200 pg/mL: likely compensated congestive heart failure (CHF) 200 to 400 pg/mL: likely moderate CHF >400 pg/mL: likely moderate to severe CHF [place] [facility] 22 Potassium reference range changed effective 07/05/14 23 Because ethnic data is not always readily [...] 15-29 5 Kidney failure <15 (or dialysis) 24 Because ethnic data is not always [...] 5 Kidney failure <15 (or dialysis) 25 FASTING 26 FASTING 27 Because ethnic data is not always [...] 130-159 High 160-189 Very High >189 32 Because ethnic data is not always [...] 5 Kidney failure <15 (or dialysis) 33 To be drawn [facility] 01/15/14 34 Because ethnic data is not always [...] 5 Kidney failure <15 (or dialysis) 35 Because ethnic data is not always readily [...] 15-29 5 Kidney failure <15 (or dialysis) 36 >100 to <200 pg/mL: likely compensated congestive heart failure (CHF) 200 to 400 pg/mL: likely moderate CHF >400 pg/mL: likely moderate to severe CHF [place] [facility] 37 Desirable <150 Borderline high 150-199 High 200-499 Very High >500 38 Desirable <200 Borderline high 200-239 High >239 39 Low <40 Desirable: 40-60 High: >60 40 Desirable <100 Near Optimal 100-129 Borderline high 130-159 High 160-189 Very High >189 41 Because ethnic data is not always [...] 5 Kidney failure <15 (or dialysis) 42 Because ethnic data is not always readily [...] 15-29 5 Kidney failure <15 (or dialysis) 43 Fasting 44 A metabolite of Naproxen, O-desmethylnaproxen, has been shown to interfere with the Jendrassik-Chandrakant method for measuring total bilirubin. Samples from patients who have taken Naproxen have shown spurious elevation in total bilirubin levels. 45 Because ethnic data is not always [...] 5 Kidney failure <15 (or dialysis) 46 HDL Interpretation: Undesirable: High Risk: Less than 40 MG/DL Desirable: Low Risk: Greater than 60 MG/DL 47 LDL Interpretation: Low Risk Optimal Level: LDL Less than 100 MG/DL Near or Above Optimal: LDL 100-129 MG/DL Borderline High Risk: LDL 130-159 MG/DL High Risk: LDL 160-189 MG/DL Very High Risk: LDL Greater than 189 MG/DL 48 A metabolite of Naproxen, O-desmethylnaproxen, has been shown to interfere with the Jendrassik-Chandrakant method for measuring total bilirubin. Samples from patients who have taken Naproxen have shown spurious elevation in total bilirubin levels. 49 Because ethnic data is not always readily [...] 15-29 5 Kidney failure <15 (or dialysis) 50 Desirable: Less than 200 MG/DL Borderline-High Risk: 200-239 MG/DL High-Risk: 240 MG/DL and over 51 HDL Interpretation: Undesirable: High Risk: Less than 40 MG/DL Desirable: Low Risk: Greater than 60 MG/DL 52 Anion gap measurement may be of limited value in the presence of any alkalosis, especially in a combined acid base disorder. . 53 Because ethnic data is not always readily [...] 15-29 5 Kidney failure <15 (or dialysis) 54 FASTING 55 CHOLESTEROL INTERPRETATION: Desirable: Less than 200 MG/DL Borderline-High Risk: 200-239 MG/DL High-Risk: 240 MG/DL and over 56 HDL INTERPRETATION: Undesirable: High Risk: Less than 40 MG/DL Desirable: Low Risk: Greater than 60 MG/DL 57 LDL INTERPRETATION: Low Risk Optimal Level: LDL Less than 100 MG/DL Near or Above Optimal: LDL 100-129 MG/DL Borderline High Risk: LDL 130-159 MG/DL High Risk: LDL 160-189 MG/DL Very High Risk: LDL Greater than 189 MG/DL 58 Anion gap measurement may be of limited value in the presence of any alkalosis, especially in a combined acid base disorder. . 59 A metabolite of Naproxen, O-desmethylnaproxen, has been shown to interfere with the Jendrassik-Chandrakant method for measuring total bilirubin. Samples from patients who have taken Naproxen have shown spurious elevation in total bilirubin levels. 60 Because ethnic data is not always readily [...] 15-29 5 Kidney failure <15 (or dialysis) 61 Anion gap measurement may be of limited value in the presence of any alkalosis, especially in a combined acid base disorder. . 62 A metabolite of Naproxen, O-desmethylnaproxen, has been shown to interfere with the Jendrassik-Chandrakant method for measuring total bilirubin. Samples from patients who have taken Naproxen have shown spurious elevation in total bilirubin levels. 63 Because ethnic data is not always readily [...] 15-29 5 Kidney failure <15 (or dialysis) 64 CHOLESTEROL INTERPRETATION: Desirable: Less than 200 MG/DL Borderline-High Risk: 200-239 MG/DL High-Risk: 240 MG/DL and over 65 HDL INTERPRETATION: Undesirable: High Risk: Less than 40 MG/DL Desirable: Low Risk: Greater than 60 MG/DL 66 LDL INTERPRETATION: Low Risk Optimal Level: LDL Less than 100 MG/DL Near or Above Optimal: LDL 100-129 MG/DL Borderline High Risk: LDL 130-159 MG/DL High Risk: LDL 160-189 MG/DL Very High Risk: LDL Greater than 189 MG/DL 67 Lymphopenia % 68 CHOLESTEROL INTERPRETATION: Desirable: Less than 200 MG/DL Borderline-High Risk: 200-239 MG/DL High-Risk: 240 MG/DL and over 69 HDL INTERPRETATION: Undesirable: High Risk: Less than 40 MG/DL Desirable: Low Risk: Greater than 60 MG/DL 70 LDL INTERPRETATION: Low Risk Optimal Level: LDL Less than 100 MG/DL Near or Above Optimal: LDL 100-129 MG/DL Borderline High Risk: LDL 130-159 MG/DL High Risk: LDL 160-189 MG/DL Very High Risk: LDL Greater than 189 MG/DL 71 Anion gap measurement may be of limited value in the presence of any alkalosis, especially in a combined acid base disorder. . 72 Note change in reference range as of 04/23/08. The change was based on recommendations from the [place] [employer]. 73 A metabolite of Naproxen, O-desmethylnaproxen, has been shown to interfere with the Jendrassik-Latah method for measuring total bilirubin. Samples from patients who have taken Naproxen have shown spurious elevation in total bilirubin levels. 74 Because ethnic data is not always readily [...] 15-29 5 Kidney failure <15 (or dialysis) 75 FAX TO [phone] 76 Anion gap measurement may be of limited value in the presence of any alkalosis, especially in a combined acid base disorder. . 77 Note change in reference range as of 04/23/08. The change was based on recommendations from the [place] [employer]. 78 Please note change in reference range effective 08 . 79 Because ethnic data is not always readily [...] 15-29 5 Kidney failure <15 (or dialysis) 80 CHOLESTEROL INTERPRETATION: Desirable: Less than 200 MG/DL Borderline-High Risk: 200-239 MG/DL High-Risk: 240 MG/DL and over 81 HDL INTERPRETATION: Undesirable: High Risk: Less than 40 MG/DL Desirable: Low Risk: Greater than 60 MG/DL 82 LDL INTERPRETATION: Low Risk Optimal Level: LDL Less than 100 MG/DL Near or Above Optimal: LDL 100-129 MG/DL Borderline High Risk: LDL 130-159 MG/DL High Risk: LDL 160-189 MG/DL Very High Risk: LDL Greater than 189 MG/DL 83 Anion gap measurement may be of limited value in the presence of any alkalosis, especially in a combined acid base disorder. . 84 Note change in reference range as of 04/23/08. The change was based on recommendations from the [place] [employer]. 85 Please note change in reference range effective 08 . 86 A metabolite of Naproxen, O-desmethylnaproxen, has been shown to interfere with the Jendrassik-Chandrakant method for measuring total bilirubin. Samples from patients who have taken Naproxen have shown spurious elevation in total bilirubin levels. 87 FASTING 88 CHOLESTEROL INTERPRETATION: Desirable: Less than 200 [...] Risk: LDL Greater than 189 MG/DL 91 Anion gap measurement may be of limited value in the presence of any alkalosis, especially in a combined acid base disorder. . 92 Note change in reference range as of 04/23/08. The change was based on recommendations from the [place] [employer]. 93 Please note change in reference range effective 08 . 94 CHOLESTEROL INTERPRETATION: Desirable: Less than 200 MG/DL Borderline-High Risk: 200-239 MG/DL High-Risk: 240 MG/DL and over 95 HDL INTERPRETATION: Undesirable: High Risk: Less than 40 MG/DL Desirable: Low Risk: Greater than 60 MG/DL 96 LDL INTERPRETATION: Low Risk Optimal Level: LDL Less than 100 MG/DL Near or Above Optimal: LDL 100-129 MG/DL Borderline High Risk: LDL 130-159 MG/DL High Risk: LDL 160-189 MG/DL Very High Risk: LDL Greater than 189 MG/DL 97 Anion gap measurement may be of limited value in the presence of any alkalosis, especially in a combined acid base disorder. . 98 Please note change in reference range effective 08 . 99 Anion gap measurement may be [...] LDL MEASUREMENT. Classification: Optimal Level . 107 Classification: Desirable . 108 Classification: Low . 109 CALCULATED LDL APPROXIMATES THE VALUE OF A DIRECT LDL MEASUREMENT. Classification: Optimal Level . 110 Anion gap measurement may be of limited value in the presence of any alkalosis, especially in a combined acid base disorder. . 111 Classification: Desirable . 112 Classification: Low . 113 CALCULATED LDL APPROXIMATES THE VALUE OF A DIRECT LDL MEASUREMENT. Classification: Optimal Level . 114 Anion gap measurement may be of limited value in the presence of any alkalosis, especially in a combined acid base disorder. . 115 Anion gap measurement may be of limited value in the presence of any alkalosis, especially in a combined acid base disorder. . Procedures Date CPT Code Description Status 08/30/2017 72096 EKG Tracing & Interpretation Completed 08/02/2017 70476 EKG Tracing & Interpretation Completed 06/12/2017 54978 ECHO Transthoracic, Real-Time 2D With Doppler And Color Completed Flow 05/30/2017 72239 Biopsy External Ear Completed 05/30/2017 70906 Dest Lesion Each Addl Lesion 2 Through 14 Each Completed 05/30/2017 75681 Destruction ALL Benign Or Premalignant Lesion (Other Completed Than [place] 05/15/2017 92388 EKG Tracing & Interpretation Completed 01/26/2017 22825 EKG Tracing & Interpretation Completed 01/09/2017 67593 Holter Monitor Review (24 hr)dr toro & iram Completed only 01/09/2017 63490 EKG Tracing & Interpretation Completed 01/05/2017 11979 Holter Monitor Review (24 hr)dr toro & iram Completed only 01/05/2017 15315 ECG Monitor/Recording W/Visual Superimposition Scanning Completed 01/04/2017 22782 ECG Monitor/Recording W/Visual Superimposition Scanning Completed 12/29/2016 88313 Color Flow Doppler/Interp & Reprt Completed 12/29/2016 33509 Pulse Wave/Continuous-Interp.RPT Completed 12/29/2016 09636 Echocardiography, Transesophageal, Real Time W/Image 2D Completed W/W/O M-M 11/27/2016 45534 EKG Tracing & Interpretation Completed 07/14/2016 68312 ECHO Transthoracic, Real-Time 2D With Doppler And Color Completed Flow 07/04/2016 76255 EKG Tracing & Interpretation Completed 12/31/2015 11899 Stress Test Completed 12/31/2015 46627 Myocardial Perfusion Imaging Tomographic (Spect) Completed Multiple Studies 12/31/2015 96865 Myocardial Perfusion Imaging Tomographic (Spect) Completed Multiple Studies 12/13/2015 54730 Holter Monitor Review (24 hr)dr toro & iram Completed only 12/06/2015 29437 EKG Tracing & Interpretation Completed 11/15/2015 47351 ECHO Transthorasic Realtime 2D W Doppler & Color Completed Flow Hosp 11/04/2015 56475 EKG Tracing & Interpretation Completed 04/28/2015 12400 EKG Tracing & Interpretation Completed 03/29/2015 15430 EKG Tracing & Interpretation Completed 03/29/2015 63694 EKG Tracing & Interpretation Completed 01/21/2015 98405 ECHO Transthoracic, Real-Time 2D With Doppler And Color Completed Flow 01/19/2015 07316 Holter Monitor Review (24 hr)dr toro & iram Completed only 01/11/2015 31215 EKG Tracing & Interpretation Completed 11/16/2014 66374 EKG Tracing & Interpretation Completed 09/04/2014 46424 ECHO Transthoracic, Real-Time 2D With Doppler And Color Completed Flow 06/10/2014 40863 EKG Tracing & Interpretation Completed 11/20/2013 96050 ECHO Stress Test Incl Perf Contiuous ekg Monitoring Completed W/Phys Superv 11/20/2013 78867 ECHO Stress Test Incl Perf Contiuous ekg Monitoring Completed W/Phys Superv 10/29/2013 10204 EKG Tracing & Interpretation Completed 08/04/2013 62352 ECHO Stress Test Incl Perf Contiuous ekg Monitoring Completed W/Phys Superv 08/04/2013 14229 ECHO Stress Test Incl Perf Contiuous ekg Monitoring Completed W/Phys Superv 07/22/2013 22144 Holter Monitoring 24 HR New Completed 06/30/2013 74573 ECHO Transthoracic, Real-Time 2D With Doppler And Color Completed Flow 06/25/2013 81501 EKG Tracing & Interpretation Completed 09/25/2012 92420 EKG Tracing & Interpretation Completed 06/12/2012 33790 EKG Tracing & Interpretation Completed 05/16/2012 03376 ECHO Transthoracic, Real-Time 2D With Doppler And Color Completed Flow 01/22/2012 53348 EKG Tracing & Interpretation Completed 08/17/2011 87657 EKG Tracing & Interpretation Completed 06/28/2011 30440 Mobile Cardiovascular Telemetry Over 24 HR Up To 30 Completed Days 06/07/2011 76604 ECHO Stress Test Incl Perf Contiuous ekg Monitoring Completed W/Phys Superv 05/22/2011 97903 Holter Monitoring 24 HR New Completed 05/05/2011 55368 EKG Tracing & Interpretation Completed 11/22/2010 45638 Treadmill Interp/Report Only Completed 11/22/2010 68539 Stress Test Supervsn W/Out I/R Completed 07/19/2010 07338 EKG Tracing & Interpretation Completed 09/06/2009 49523 EKG Tracing & Interpretation Completed 02/09/2009 00542 EKG Tracing & Interpretation Completed 11/27/2008 91658 EKG Tracing & Interpretation Completed 05/22/2008 50594 EKG Tracing & Interpretation Completed 05/22/2008 24923 EKG Tracing & Interpretation Completed 04/28/2008 25138 Stress Test Supervsn W/Out I/R Completed 04/28/2008 02027 Stress Test Supervsn W/Out I/R Completed 04/28/2008 37481 Treadmill Interp/Report Only Completed 2008 56122 EKG Tracing & Interpretation Completed 2008 57605 EKG Tracing & Interpretation Completed 03/04/2008 77144 ECHO/Stress Completed 03/04/2008 77303 ECHO/Stress Completed 03/04/2008 36844 ECHO/Stress Completed 03/04/2008 15163 Stress Test Completed 03/04/2008 02780 Stress Test Completed 01/10/2008 90030 EKG Tracing & Interpretation Completed 01/10/2008 91195 EKG Tracing & Interpretation Completed 12/31/2006 19931 EKG Tracing & Interpretation Completed 08/15/2006 72812 EKG Tracing & Interpretation Completed 07/03/2006 30834 Color Flow Doppler/Interp & Reprt Completed 07/03/2006 74619 Color Flow Doppler/Interp & Reprt Completed 07/03/2006 71402 Echocardiography, Transesophageal, Real Time W/Image 2D Completed W/W/O M-M 06/13/2006 52430 EKG Tracing & Interpretation Completed 06/13/2006 98303 EKG Tracing & Interpretation Completed 05/09/2006 70880 Color Doppler Completed 05/09/2006 42991 Pulse Doppler & Continuous Wave Completed 05/09/2006 88734 Pulse Doppler & Continuous Wave Completed 05/09/2006 43518 Echocardiogram Completed 05/12/2005 79328 Stress Test Completed 05/12/2005 42292 ECHO/Stress Completed 04/18/2005 05201 Color Doppler Completed 04/18/2005 48855 Pulse Doppler & Continuous Wave Completed 04/18/2005 38895 Echocardiogram Completed 04/13/2005 81291 EKG Tracing & Interpretation Completed 04/22/2004 84727 EKG Tracing & Interpretation Completed 03/26/2003 45073 ECHO/Stress Completed 03/26/2003 97022 Stress Test Completed 03/10/2003 42092 Color Doppler Completed 03/10/2003 77905 Pulse Doppler & Continuous Wave Completed 03/10/2003 59119 Echocardiogram Completed 02/20/2003 01927 EKG Tracing & Interpretation Completed Encounters Type Date Location Provider CPT E/M Dx Office Visit 08/20/2017 2:00p [facility] JUSTYNA Malik 00186 I35.0 I25.10 I25.5 I50.23 R06.02 Office Visit 08/02/2017 3:00p [facility] Philip Lance M.D. 38003 I35.0 I71.2 I25.10 I49.5 E78.00 R06.00 Office Visit 05/30/2017 2:00p [facility] [place] [address] L82.1 C44.229 L57.0 Office Visit 05/15/2017 10:20a [facility] Philip Lance M.D. 80366 R42 I35.0 I25.10 I71.2 I49.5 I25.2 R94.31 I10 Office Visit 01/30/2017 2:00p [facility] [place] [address] I10 Office Visit 01/26/2017 11:00a [facility] JUSTYNA Malik 67243 I10 I35.0 I49.3 R06.02 Office Visit 01/09/2017 1:20p [facility] Philip Lance M.D. 84279 I10 R42 I35.0 R94.31 I25.10 Office Visit 12/29/2016 8:00a [facility] Philip Lance M.D. 39804 I35.0 I10 I25.10 Office Visit 12/07/2016 1:00p [facility] [place] [address] I10 Office Visit 11/27/2016 9:30a [facility] JUSTYNA Malik 27252 R42 I35.0 I10 Office Visit 07/19/2016 11:00a [facility] JUSTYNA Malik 92787 I35.0 I25.10 I10 E78.5 Office Visit 07/04/2016 10:20a [facility] Philip Lance 48285 I25.10 BhupinderDAiram I10 E11.9 E78.5 I25.5 I35.0 Office Visit 02/07/2016 9:30a [facility] JUSTYNA Malik 11105 I25.10 I10 I35.0 E11.9 E78.5 Office Visit 12/13/2015 9:15a [facility] [place] [address] I10 Office Visit 12/06/2015 9:00a [facility] JUSTYNA Malik 22182 R42 I25.10 I35.0 E11.9 I10 R09.02 Office Visit 11/16/2015 4:06p [facility] [address] R42 Hospitalists I25.10 R79.89 Office Visit 11/16/2015 2:14p [facility] Helder Hammond 44385 I25.10 [facility] Maykel I35.0 Office Visit 11/15/2015 4:05p [facility] Rachel Hardin N.P. 81165 R42 Hospitalists I25.10 R79.89 Office Visit 11/04/2015 10:00a [facility] JUSTYNA Malik 01863 G11.1 R42 I10 I35.0 N64.9 Office Visit 07/27/2015 10:30a [facility] Jose De Luna, 09565 I63.8 M.DAiram G11.1 Office Visit 05/03/2015 10:45a [facility] Jose [place] Luna, 55160 781.2 M.DAiram 334.3 434.91 Office Visit 04/28/2015 10:00a [facility] Pihlip Lance M.D. 36901 780.4 781.2 401.9 424.1 424.0 Office Visit 04/09/2015 10:00a [facility] [place], 25054 780.4 MAiramDAiram 434.91 334.3 787.01 781.2 Office Visit 04/02/2015 2:30p [facility] [place] [address] 401.9 Office Visit 03/29/2015 3:00p [facility] Philip Lance M.D. 45910 424.1 441.9 424.0 401.9 Office Visit 03/10/2015 3:40p [facility] Philip Lance 03048 424.1 [facility] Maykel 441.9 414.01 424.0 401.9 386.2 Office Visit 01/28/2015 1:30p [facility] JUSTYNA Malik 02768 441.9 424.1 414.01 424.0 780.4 401.1 Office Visit 01/11/2015 1:30p [facility] JUSTYNA Malik 39980 441.9 424.0 424.1 401.1 414.01 780.4 780.79 Office Visit 11/16/2014 11:00a [facility] Philip Lance M.D. 24305 441.9 401.1 424.1 414.01 424.0 Office Visit 08/31/2014 11:00a [facility] Jose Noble 66479 722.10 [facility] [place] Office Visit 06/10/2014 2:20p [facility] Philip Campo 45082 441.9 Maykel Lance 401.1 424.1 414.01 424.0 Office Visit 02/10/2014 3:30p [facility] JUSTYNA Malik [id number] 401.1 441.9 424.1 414.01 Office Visit 12/31/2013 1:30p [facility] JUSTYNA Malik 11880 401.1 786.05 441.9 799.02 Office Visit 12/15/2013 2:30p [facility] JUSTYNA Malik 83321 424.1 401.1 414.01 441.9 786.05 Office Visit 11/20/2013 2:30p [facility] Philip Lance M.D. 64958 424.1 424.0 427.32 272.0 Office Visit 11/20/2013 2:00p [facility] [place] ECHO Schedule 92206 401.1 414.01 786.05 Office Visit 10/29/2013 10:20a [facility] Philip Lance M.D. 00581 424.1 424.0 427.32 401.1 272.0 414.04 Office Visit 08/04/2013 10:30a [facility] Philip Lance M.D. 37002 424.1 424.0 412 780.4 Office Visit 07/11/2013 8:30a [facility] Nurse Visit 54826 401.1 Office Visit 06/25/2013 10:40a [facility] Philip Lance M.D. 46676 272.0 424.0 424.1 Office Visit 11/04/2012 10:30a [facility] Philip Lance M.D. 97055 424.0 272.0 412 401.1 Office Visit 09/25/2012 11:20a [facility] Philip Lance M.D. 92895 272.0 424.0 424.1 412 Office Visit 06/12/2012 10:20a [facility] Philip Lance M.D. 30766 424.0 272.0 424.1 412 Office Visit 02/06/2012 11:00a [facility] Carline Mendoza, N.P. 23808 401.1 [facility] Office Visit 01/22/2012 3:20p [facility] Philip Lance, 94332 424.0 [facility] Maykel 424.1 401.1 272.0 Office Visit 09/14/2011 1:15p [facility] [place] [address] 401.1 Office Visit 08/17/2011 2:00p [facility] Philip Lance M.D. 76254 401.1 424.0 412 Office Visit 06/20/2011 9:30a [facility] [place] [address] 427.32 401.1 780.79 Office Visit 06/07/2011 2:30p [facility] Pihlip Lance M.D. 49863 424.1 401.1 414.8 412 Office Visit 05/12/2011 8:15a [facility] [place] [address] 401.1 Office Visit 05/05/2011 11:00a [facility] Philip Lance M.D. 11660 414.8 401.1 780.4 Office Visit 07/19/2010 2:20p [facility] Philip Lance M.D. 71495 424.0 424.1 414.01 401.1 272.0 Office Visit 09/06/2009 10:00a [facility] Philip Lance M.D. 05625 401.1 424.0 414.01 272.0 Office Visit 05/07/2009 11:00a [facility] Philip Lance M.D. 36312 401.1 424.0 424.1 414.01 272.0 Office Visit 03/12/2009 9:30a [facility] [place] [address] 401.1 Office Visit 02/09/2009 3:40p [facility] Philip Lance M.D. 92288 401.1 424.0 424.1 414.01 Office Visit 12/25/2008 10:30[place] [facility] [place] [address] 401.1 Office Visit 11/27/2008 10:00a [facility] Philip EduarAiram Lance, 58549 414.01 M.D. 424.0 401.0 Office Visit 08/07/2008 11:20a [facility] Philip EduarAiram Lance, 41516 414.01 M.D. 424.0 401.1 424.1 412 Office Visit 05/22/2008 2:40p [facility] Philip Lance, 75645 414.01 M.D. 424.0 401.1 424.1 Office Visit 2008 11:00a [facility] Philip EduarAiram Lance, 41614 414.01 M.D. 401.1 441.2 Office Visit 01/10/2008 3:00p [facility] Philip Lance, 18645 414.01 M.D. 401.1 272.0 441.2 424.0 Office Visit 12/31/2006 3:00p [facility] Philip Lance, 36536 414.01 M.D. 401.1 272.0 441.2 Office Visit 08/15/2006 2:00p [facility] Philip Lance, 95099 414.01 M.D. 401.1 441.2 Office Visit 07/12/2006 9:00a [facility] Philip Lance, 14387 414.01 M.D. 441.2 Office Visit 06/13/2006 9:40a [facility] Philip Lance, 24706 414.01 M.D. 401.1 272.0 Office Visit 04/13/2005 10:20a [facility] Philip Lance, 60087 414.01 M.D. 412 424.1 Office Visit 04/22/2004 1:40p [facility] Philip Lance, 64601 414.01 M.D. 401.1 412 272.0 Office Visit 02/20/2003 9:20a [facility] Philip Lance, 36926 414.01 M.D. Plan of Care Future Appointment(s):09/07/2017 4:00 pm - JUSTYNA Malik at [place] [address]/02/2018 11:00 am - Philip Lance M.D. at [facility]01/2018 3:30 pm - [place] [facility] Schedule at [facility]08/30/2017 - Marj Gallegos PAI35.0 Nonrheumatic aortic (valve) [id number] Acute on chronic systolic (congestive) heart failureComments:Please continue Torsemide 20 mg twice a day for now. Please increase Potassium Chloride to 20 mEq twice a day WITH the Torsemide. If we do not continue to make progress on lowering your weight and improving your shortness of breath - should please seriously consider inpatient stay. Please call tomorrow am with the morning weight so we can determine when is appropriate to reduce water pill if needed before Sunday.Follow up:Followup with TE next Sunday 4pm [place] after echoI25.5 Ischemic cardiomyopathy
[2017-09-06 18:27] LABS: ABS Basophils 0.1 10^3/ul (0-0.2); ABS Eosinophils 0.1 10^3/ul (0-0.6); ABS Lymphocytes 1.3 10^3/ul (1.0-4.8); ABS Monocytes 0.9 10^3/ul (0-0.8); ABS Neutrophils 6.1 10^3/ul (1.5-7.7); ABS Nucleated RBC 0 10^3/ul; Eosinophil % 1.5 % (0-6); Hematocrit 43 % (42-52); Hemoglobin 14.4 g/dl (14.0-18.0); Lymphocyte % 15.3 % (25-47); Mean Corpuscular HGB Conc 34 g/dl (31-36); Mean Corpuscular Hemoglobin 32 pg (27-31); Mean Corpuscular Volume 94 fL (80-94); Mean Platelet Volume 9 um3 (7.4-10.4); Nucleated Red Blood Cells % 0; Platelet Count 193 10^3/ul (150-450); Red Blood Count 4.57 10^6/ul (4.0-5.4); Red Cell Distribution Width 14 % (10.5-15); White Blood Count 8.5 10^3/ul (3.5-10.8)
[2017-09-06 18:41] LABS: EGFR Non-African American 42.2 (>60)
--- NOTE | 2017-09-06 18:54 | RAD ---
Indication: Dyspnea. Cardiac disease. Comparison: August 28, 2017 Technique: Upright AP 1805 hours Report: Median sternotomy wires and mediastinal vascular clips. Cardiomegaly. Unremarkable central pulmonary vasculature. Small bilateral dependent pleural effusions with proportional basilar atelectasis. Negative for pneumothorax. IMPRESSION: No significant change in small bilateral pleural effusions and proportional basilar atelectasis compared with the August 28, 2017 exam.
[2017-09-06] MEDS ORDERED: Furosemide IV* 10 MG/ML VIAL (40 MG) IV ONE (19:13)
[2017-09-06] MEDS ORDERED: Nitroglycerin 2% OINT* 1 GM PAK TOPICAL ONE (19:13)
[2017-09-06] MEDS ORDERED: Aspirin TAB* 325 MG PO ONE (19:13)
[2017-09-06] MEDS ORDERED: Acetaminophen TAB* 325 MG PO PRN (20:28)
[2017-09-06] MEDS ORDERED: Ondansetron INJ* 2 MG/ML VIAL IV PRN (20:29)
[2017-09-06] MEDS ORDERED: CMCS: Melatonin (NF) 3 MG TAB PO PRN (20:29)
[2017-09-06 20:51] LABS: INR 0.98 (0.77-1.02)
--- NOTE | 2017-09-06 23:03 | HP ---
H&P (Free Text) History and Physical: PCP: Jan Rubi MD Date/Time: 09/06/20172009 CC: SOB HPI: Mr Sanders is an 87YO male HX CAD/CABG, DM2, TIA, HLD, & HTN who reports gradually increasing SOB since May with associated increasing BLE edema. He reports compliance with torsemide & started metolazone yesterday. He also reports increasing fatigue, decreased appetite, but denies chest pain, palpitations, sweats, F/C, cough, congestion, or other issues. He reports adherence with a low sodium diet. ED evaluation is notable for BNP >2500, troponin 0.08 (baseline), 4cm JVD at 90 degrees, and 2+ BLE edema. 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 Ambulatory Orders Aspirin Low Dose CHEW TAB* [Aspirin Low Dose TAB*] 81 mg PO QAM 05/06/15 Carvedilol TAB* [Coreg TAB*] 0.5 tab PO BID 05/06/15 Multivitamins/Minerals TAB* [Theragran/minerals TAB*] 1 tab PO QAM 05/06/15 Potassium Chlor TAB* [Potassium Chlor TAB 20 MEQ*] 20 meq PO EVERY OTHER DAY Pepin-3 Fatty Acids [Fish Oil] 1,000 mg PO QAM 12/28/16 metFORMIN* [Glucophage 500 MG TAB *] 500 mg PO BID 12/28/16 Atorvastatin* [Lipitor*] 0.5 tab PO QAM 06/20/17 Metolazone TAB* 2.5 mg PO SEE INSTRUCTIONS PRN 09/06/17 Plavix TAB* 75 mg PO DAILY 09/06/17 Torsemide TAB* 10 mg PO BID 09/06/17 Allergies Diltiazem [From Cartia XT] Allergy (Unknown, Verified 06/20/17 16:10) Unknown Reaction Details Atenolol Allergy (Verified 06/20/17 16:10) Unknown Reaction Details Codeine Allergy (Verified 06/20/17 16:10) Stomach Cramps SocHx: no tobacco, occasional alcohol, no recreational drugs; lives alone; DNR code status FamHx: positive for HTN & "heart problems" ROS: as above, otherwise reviewed and all were negative vitals: Vital Signs Temp 36.2 C 09/06/17 17:03 Pulse 101 09/06/17 22:00 Resp 24 09/06/17 20:45 BP 111/85 09/06/17 22:00 Pulse Ox 96 09/06/17 22:00 Intake & Output 09/05/17 09/06/17 09/06/17 23:59 11:59 23:59 Weight 83.461 kg Constitutional: NAD, normally developed, well-nourished elderly white male HEENM: atraumatic; sclera/conjunctiva: anicteric/clear; post-surgical notching of L auricle; hearing: clinically mildly decreased; oropharynx: clear, mucosa moist Neck: soft tissue: non-tender; thyroid: normal Pulmonary: diminished bilaterally, fair to good aeration, no accessory muscle use CV: RR/RR, normal S1S2, no carotid bruit, 4cm jugular venous distention at 90 degrees, 1+ B DP/PT, 2+ BLE edema Abdominal: soft, non-distended, non-tender, no rebound/guarding/rigidity, normoactive bowel sounds, no hepatosplenomegaly or masses, no costovertebral angle tenderness Musculoskeletal: general: grossly intact, no tenderness w/ palpation Integumental: no open wounds or rash noted Psychiatric orientation: AA&O to PPS affect: calm mood: cooperative eye contact: good content: reliable responses: timely insight: fair Testing: Laboratory Results - last 24 hr 09/06/17 09/06/17 09/06/17 18:12 18:12 18:12 WBC 8.5 RBC 4.57 Hgb 14.4 Hct 43 MCV 94 MCH 32 H MCHC 34 RDW 14 Plt Count 193 MPV 9 Neut % (Auto) 71.7 Lymph % (Auto) 15.3 L King % (Auto) 10.7 H Eos % (Auto) 1.5 Baso % (Auto) 0.8 Absolute Neuts (auto) 6.1 Absolute Lymphs (auto) 1.3 Absolute Monos (auto) 0.9 H Absolute Eos (auto) 0.1 Absolute Basos (auto) 0.1 Absolute Nucleated RBC 0 Nucleated RBC % 0 INR (Anticoag Therapy) APTT Sodium 140 Potassium 3.8 Chloride 101 Carbon Dioxide 30 Anion Gap 9 BUN 36 H Creatinine 1.56 H Est GFR ( Amer) 54.3 Est GFR (Non-Af Amer) 42.2 BUN/Creatinine Ratio 23.1 H Glucose 109 H Calcium 9.1 Magnesium 2.0 Total Bilirubin 0.60 AST 22 ALT 35 Alkaline Phosphatase 73 Troponin I 0.08 H* B-Natriuretic Peptide 2568 H Total Protein 6.7 Albumin 3.7 Globulin 3.0 Albumin/Globulin Ratio 1.2 TSH 3.52 Influenza A (Rapid) Influenza B (Rapid) 09/06/17 09/06/17 18:12 18:21 WBC RBC Hgb Hct MCV MCH MCHC RDW Plt Count MPV Neut % (Auto) Lymph % (Auto) King % (Auto) Eos % (Auto) Baso % (Auto) Absolute Neuts (auto) Absolute Lymphs (auto) Absolute Monos (auto) Absolute Eos (auto) Absolute Basos (auto) Absolute Nucleated RBC Nucleated RBC % INR (Anticoag Therapy) 0.98 APTT 31.9 Sodium Potassium Chloride Carbon Dioxide Anion Gap BUN Creatinine Est GFR ( Amer) Est GFR (Non-Af Amer) BUN/Creatinine Ratio Glucose Calcium Magnesium Total Bilirubin AST ALT Alkaline Phosphatase Troponin I B-Natriuretic Peptide Total Protein Albumin Globulin Albumin/Globulin Ratio TSH Influenza A (Rapid) Negative Influenza B (Rapid) Negative ECG, personally reviewed: sinus 1st degree AV block rate 79, no ischemia, wandering baseline, poor R-wave progression CXR, personally reviewed: IMPRESSION: Mild consolidation at the periphery of the LEFT lower lung zone is unchanged compared with the July 29, 2017 exam most consistent with pleural parenchymal scarring given stability and linear morphology on prior CT. No compelling evidence for pneumonia. ECHO (07/2017): Conclusions: The study is technically limited due to poor apical windows. The left ventricular chamber size is normal. Mild to moderate concentric left ventricular hypertrophy is observed. The left ventricle appears hyperdynamic. The estimated ejection fraction is greater than 65%. There is an E to A reversal in the mitral valve flow pattern suggestive of diastolic dysfunction. There is trace to mild aortic regurgitation. There is trace to mild mitral regurgitation. There is trace tricuspid regurgitation. 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
[2017-09-07] MEDS: Docusate CAP* 100 MG PO SCH ×3 (01:06→22:09)
[2017-09-07 01:31] LABS: ABS Basophils 0.1 10^3/ul (0-0.2); ABS Eosinophils 0.1 10^3/ul (0-0.6); ABS Lymphocytes 1.7 10^3/ul (1.0-4.8); ABS Monocytes 0.9 10^3/ul (0-0.8); ABS Neutrophils 5.4 10^3/ul (1.5-7.7); ABS Nucleated RBC 0 10^3/ul; Eosinophil % 1.8 % (0-6); Hematocrit 45 % (42-52); Lymphocyte % 20.9 % (25-47); Mean Corpuscular HGB Conc 34 g/dl (31-36); Mean Corpuscular Hemoglobin 32 pg (27-31); Mean Corpuscular Volume 95 fL (80-94); Mean Platelet Volume 10 um3 (7.4-10.4); Nucleated Red Blood Cells % 0; Platelet Count 189 10^3/ul (150-450); Red Blood Count 4.73 10^6/ul (4.0-5.4); Red Cell Distribution Width 14 % (10.5-15); White Blood Count 8.2 10^3/ul (3.5-10.8)
[2017-09-07 01:47] LABS: EGFR Non-African American 46.7 (>60)
[2017-09-07] MEDS ORDERED: Omeprazole CAP* 20 MG PO SCH (06:00)
[2017-09-07] MEDS: Heparin VIAL(*) 5000 UNITS/ML VIAL (FIVE THOUSAND) SUBCUT SCH ×2 (06:02→14:44)
[2017-09-07 08:24] LABS: EGFR Non-African American 49.5 (>60)
[2017-09-07] MEDS ORDERED: Potassium Chlor TAB* 20 MEQ TAB.ER PO ONE (08:30)
[2017-09-07] MEDS ORDERED: KCL 20 MEQ/100 ML IVPREMIX* 20 MEQ/100 ML BAG IV ONE (08:31)
[2017-09-07] MEDS: Furosemide IV* 10 MG/ML 10 ML VIAL (100 MG) IV SCH ×2 (09:15→12:32)
[2017-09-07] MEDS: KCL 10 MEQ/50 ML IVPREMIX* 10 MEQ/50 ML BAG IV SCH ×2 (09:16→11:23)
[2017-09-07] MEDS ORDERED: Perflutren Lipid Microsphere* 3 ML VIAL ONE (11:06)
--- NOTE | 2017-09-07 14:30 | PN ---
Subjective Date of Service: 09/07/17 Interval History: Pt states that he had been "going downhill x 4 months". c/o RENTERIA, getting dizzy and unsteady. Dr. Lance inquired if pt would be interested in a valve replacement in the past and he is not. 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 His son helps him with groceries. Pt stopped driving last May. No c/o CP Objective Active Medications: Acetaminophen (Tylenol Tab*) 650 mg PO Q6H PRN PRN Reason: FEVER/PAIN Aspirin (Aspirin Low Dose Tab*) 81 mg PO QAM [facility] Atorvastatin Calcium (Lipitor*) 5 mg PO QAM [facility] Carvedilol (Coreg Tab*) 1.5625 mg PO BID [facility] Clopidogrel Bisulfate (Plavix Tab*) 75 mg PO DAILY [facility] Docusate Sodium (Colace Cap*) 200 mg PO BID [facility] Last Admin: 09/07/17 09:16 Dose: 200 mg Heparin Sodium (Porcine) (Heparin Vial(*)) 5,000 units SUBCUT Q8HR [facility] Last Admin: 09/07/17 06:02 Dose: 5,000 units Melatonin (Melatonin (Nf)) 3 mg PO BEDTIME PRN; Protocol PRN Reason: Sleep Metformin HCl (Glucophage*) 500 mg PO BID [facility] Ondansetron HCl (Zofran Inj*) 4 mg IV Q6H PRN PRN Reason: NAUSEA Pantoprazole Sodium (Protonix Tab (Nf)) 40 mg PO DAILY@0600 [facility] Potassium Chloride (Klor Con Er Tab*) 20 meq PO EVERY OTHER DAY [facility] Torsemide (Demadex*) 40 mg PO DAILY [facility] Vital Signs - 8 hr 09/07/17 09/07/17 09/07/17 07:23 08:00 11:30 Temperature 97.5 F 97.3 F Pulse Rate 77 77 Respiratory 20 16 18 Rate Blood Pressure 95/61 92/61 (mmHg) O2 Sat by Pulse 98 95 Oximetry Oxygen Devices in Use Now: None Appearance: 87 yo M in nAD, aAOx3 Eyes: No Scleral Icterus, PERRLA Ears/Nose/Mouth/Throat: NL Teeth, Lips, Gums, Mucous Membranes Moist Neck: NL Appearance and Movements; NL JVP, Trachea Midline Respiratory: Symmetrical Chest Expansion and Respiratory Effort, - - crackles at bases b/l Cardiovascular: RRR, - - 2/6 THOMAS at RUSB Abdominal: NL Sounds; No Tenderness; No Distention, No Hepatosplenomegaly Lymphatic: No Cervical Adenopathy Extremities: No Edema, No Clubbing, Cyanosis Skin: No Rash or Ulcers, No Nodules or Sclerosis Neurological: Alert and Oriented x 3, NL Muscle Strength and Tone Result Diagrams: 09/07/17 01:14 09/07/17 07:36 Assess/Plan/Problems-Billing Assessment: 87 yo M with h/o DM, CAD (CABG-1999, stents-last cath in 2013), diastolic CHF, mod presents with increased RENTERIA - Patient Problems (1) Diastolic CHF Comment: diuresed > 2000 ml overnight. EF 45% on Echo 06/19 D/c Lasix and restart home torsemide at 40 mg tomorrow. (2) Troponin I above reference range Comment: conitnues to trend up, but pt denies CP. ? Demand ischemia due to CHF Cont ASA, Plavix Cardiology consulted, Echo pending (3) DM2 (diabetes mellitus, type 2) Comment: with CKD 3-worsening slowly creatinine Holding metformin due to creat close to 1.5 HbA1C 7.1 cont ADA diet (4) Aortic stenosis Comment: VIVIAN 1.7 cm on DONNIE 12/18-his symptoms are likley due to -pt not interested in surgery (5) End of life care Comment: pt is not interested in aggresive measures, but would like to feel better if possible. Also interested in hospice-palliative consult placed. DNR signed Status and Disposition: inpatient
--- NOTE | 2017-09-07 14:44 | ECHO ---
Patient: MIESHA VARGHESE [facility] Rec#: [id number] : 1930 Date: 09/07/2017 Age: 87y Height: 185.4 cm / 73.0 in Weight: 74.4 kg / 164.0 lbs Sex: M BSA: 1.98 Room#: [facility] Admit Date#: 09/06/2017 Type: Inpatient Referring: Caprice Squires MD Reading: Nitin Oquendo DO Floorleader: Alycia Cota RN RDCS CC: Lance Rubi MD CC: Philip Lance MD Transthoracic Echocardiogram Indication: CHF, elevated troponin levels BP: 95/61 HR: 77 Rhythm: NSR with PVCs Findings History: CAD, CABG, HTN, DM, HLD, TIA, aortic aneurysm, aortic stenosis Technical Comments: The study is technically limited due to poor acoustic windows. Completed at 1210. Left Ventricle: The left ventricular size is mild to moderately dilated. Mild to moderate concentric left ventricular hypertrophy is observed. There is severely decreased left ventricular systolic function.with an LVEF of approximately 25% Post surgical hypokinesis of the interventricular septum is observed consistent with coronary artery bypass. The left ventricular diastolic filling pattern is restrictive. The mid anteroseptal, mid anterior, mid anterolateral, and mid inferoseptal wall segments are hypokinetic (score 2). The mid inferior, apical septal, apical anterior, and apical lateral wall segments are akinetic (score 3). The apical inferior wall segment is dyskinetic (score 4). Overall wallmotion score index is 2.00 Left Atrium: The left atrium is severely dilated. Right Ventricle: The right ventricle is mildly dilated. The right ventricular global systolic function is moderately reduced. Right Atrium: The right atrium is moderately dilated. Aortic Valve: The aortic valve leaflets are moderately thickened. Severe aortic leaflet calcification is visualized. There is mild aortic regurgitation. There is moderate aortic stenosis. Mitral Valve: Severe mitral annular calcification present. The mitral valve leaflets are moderately thickened. There is mild mitral regurgitation. There is mild mitral stenosis. that may be underestimated in severity, non-rheumatic, mean gradient 3.7 mmHg sinus rhythm rate 80 bpm Tricuspid Valve: The tricuspid valve leaflets are normal. There is trace to mild tricuspid regurgitation. There is evidence of mild pulmonary hypertension. There is no tricuspid stenosis. Pulmonic Valve: The pulmonic valve structure is not well visualized. There is a trace pulmonic regurgitation. There is no pulmonic stenosis. Pericardium: There is no significant pericardial effusion. Aorta: There is moderate dilatation of the ascending aorta.at 4.9 cm There is mild dilatation of the aortic arch. There is mild dilatation of the aortic root. Pulmonary Artery: The main pulmonary artery is not well visualized. Venous: The venous system is not well visualized. The inferior vena cava is not visualized. Contrast: Definity was used to optimize study. A total of 3 ml of diluted Definity was given IV. Conclusions The left ventricular size is mild to moderately dilated. Mild to moderate concentric left ventricular hypertrophy is observed. There is severely decreased left ventricular systolic function.with an LVEF of approximately 25% and segmental wall motion abnormalities as described within report. The left atrium is severely dilated. The right ventricle is mildly dilated. The right ventricular global systolic function is moderately reduced. There is moderate aortic stenosis that may be underestimated in severity. There is mild non-rheumatic mitral stenosis that may be underestimated in severity There is evidence of mild pulmonary hypertension. There is moderate dilatation of the ascending aorta.at 4.9 cm Definity used to optimize study. Compared to prior study from 06/2017, the LVEF is now severely reduced (was 40% previously) Measurements Name Value Normal Range RVDdMajor (2D) 5 cm (2.2 - 4.4) RAd ISD 4CH 5.3 cm (3.4 - 4.9) RA (A4C)W 5.8 cm (2.9 - 4.6) IVSd (2D) 1.4 cm (0.6 - 1) LVPWd (2D) 1.3 cm (0.6 - 1) IVS:LVPW ratio (2D) 1.05 ratio - LVIDd (2D) 6 cm (3.6 - 5.4) LVIDs (2D) 4.8 cm - LV FS (2D) 21 % (25 - 45) Aortic Annulus 2.2 cm (1.4 - 2.6) Ao root diameter (2D) 3.9 cm (2.1 - 3.5) Ascending Ao 4.9 cm (2.1 - 3.4) Aortic arch 3.5 cm (1.8 - 3.4) LA dimension (AP) 2D 5.6 cm (2.3 - 3.8) LAd ISD 4CH 7.3 cm (2.9 - 5.3) LA ISD 4CH W 5.9 cm (2.5 - 4.5) Aortic root diameter (2D1.1 cm/m2 - Name Value Normal Range LA ESV SP 4CH (A/L) 126 ml - LA ESV SP 2CH (A/L) 128 ml - LA ESV BP (A/L) 127 ml - LA ESV BP (A/L) index 64 ml/m2 - LA ESV SP 4CH (MOD) 120 ml - LA ESV SP 2CH (MOD) 121 ml - Name Value Normal Range MV E-wave Vmax 1.4 m/sec - MV deceleration time 208 msec - MV A-wave Vmax 0.83 m/sec - MV E:A ratio 1.7 ratio - LV septal e' Vmax 0.03 m/sec - LV lateral e' Vmax 0.08 m/sec - LV E:e' septal ratio 46.7 ratio - LV E:e' lateral ratio 17.5 ratio - Name Value Normal Range AV Vmax 2.1 m/sec - AV VTI 45 cm - AV peak gradient 18 mmHg - AV mean gradient 12 mmHg - LVOT diameter 2 cm - LVOT Vmax 0.79 m/sec - LVOT VTI 14.8 cm - LVOT peak gradient 2.5 mmHg - LVOT mean gradient 1.6 mmHg - DOI (VTI) 0.33 ratio - DOI (Vmax) 0.38 ratio - SV LVOT 46.5 ml - CO LVOT 3.6 l/min - Cardiac index 1.8 l/min/m2 - VIVIAN (continuity Vmax) 1.2 cm2 - VIVIAN (continuity VTI) 1 cm2 - AR PHT 515 msec - NADIRA Vmax 0.41 m/sec - Name Value Normal Range MV Vmax 1.8 m/sec - MV VTI 44.4 cm - MV peak gradient 13 mmHg - MV mean gradient 3.6 mmHg - MV PHT 73.4 msec - MVA (PHT) 3 cm2 - MVA (continuity VTI) 1.1 cm2 - Name Value Normal Range TR Vmax 2.9 m/sec - TR peak gradient 34 mmHg - RAP 8 mmHg - RVSP 42 mmHg - Name Value Normal Range PV Vmax 0.67 m/sec - Wallmotion BAS Normal BA Normal BAL Normal SANDEEP Normal BI Normal BIS Normal MAS Hypokinetic MA Hypokinetic MAL Hypokinetic MIL Not Seen MO Akinetic MIS Hypokinetic Akinetic AA Akinetic AL Akinetic AI Dyskinetic APEX Akinetic
[2017-09-07 17:19] LABS: EGFR Non-African American 44.5 (>60)
[2017-09-07] MEDS ORDERED: Digoxin IV* 0.5 MG/2 ML AMP (0.25 MG/ML) IV SLOW PU ONE (17:34)
--- NOTE | 2017-09-07 17:38 | CONSULT ---
Subjective Date of Service: 09/07/17 Interval History: Date of consult 09/07/2017 Primary Care Physician: Lance Rubi MD Seamless Tube Drawer: Dr. Lance Service: Hospitalist CC: Weakness and dyspnea Reason for consult: CHF exacerbation Mr. Sanders is a an 87 year old man with a history of CAD/NM with ischemic cardiomyopathy and at least moderate aortic stenosis who presents with progressive dyspnea, edema, orthopnea despite escalation of outpatient diuretics. He has also had weakness, dizziness and confusion. He lives alone and has declined to have alternative living arrangement that has been offered by his son and daughter in law who apparently live in [place]. He was admitted now and is achieving good diuresis but still feels poorly with dyspnea and dizziness His SBP is currently high 80's on only extreme low dose coreg. He had an echocardiogram today with deterioration of his LVEF from 40% to 25% since 06/2017. Patient denies any chest discomfort, palpitations and syncope. His troponin continues to rise and is at 2.45 without peaking. cardiac PMhx CAD/NM/Ischemic cardiomyopathy Aortic stenosis, at least moderate Ascending aortic aneurysm ~ 5 cm cardiac Surgical Hx: CABG - (02/01/2000) [facility]. SVG to LAD, SVG to D1, Sequential svg to PL1 and PL2. FH: Stroke. SH: Marital: .Lives With: Alone.Occupation: Retired. Personal Habits: Smoking: Patient has never smoked.Alcohol: Consumes liquor once daily.Drug Use: Never Used Drugs.Daily Caffeine: Consumes on average 3 cups of regular coffee per day, consumes chocolate occasionally Medications Active Medications: Acetaminophen (Tylenol Tab*) 650 mg PO Q6H PRN PRN Reason: FEVER/PAIN Aspirin (Aspirin Low Dose Tab*) 81 mg PO QAM [facility] Atorvastatin Calcium (Lipitor*) 5 mg PO QAM [facility] Carvedilol (Coreg Tab*) 1.5625 mg PO BID [facility] Clopidogrel Bisulfate (Plavix Tab*) 75 mg PO DAILY [facility] Digoxin (Lanoxin Tab*) 0.125 mg PO EVERY OTHER DAY [facility] Docusate Sodium (Colace Cap*) 200 mg PO BID [facility] Last Admin: 09/07/17 09:16 Dose: 200 mg Heparin Sodium (Porcine) (Heparin Vial(*)) 5,000 units SUBCUT Q8HR [facility] Last Admin: 09/07/17 14:44 Dose: 5,000 units Melatonin (Melatonin (Nf)) 3 mg PO BEDTIME PRN; Protocol PRN Reason: Sleep Ondansetron HCl (Zofran Inj*) 4 mg IV Q6H PRN PRN Reason: NAUSEA Pantoprazole Sodium (Protonix Tab (Nf)) 40 mg PO DAILY@0600 [facility] Potassium Chloride (Klor Con Er Tab*) 20 meq PO EVERY OTHER DAY [facility] Torsemide (Demadex*) 40 mg PO DAILY [facility] Home Medications: Aspirin Low Dose CHEW TAB* [Aspirin Low Dose TAB*] 81 mg PO QAM 05/06/15 [ History Confirmed 09/06/17] Carvedilol TAB* [Coreg TAB*] 0.5 tab PO BID 05/06/15 [History Confirmed 09/06/17 ] Multivitamins/Minerals TAB* [Theragran/minerals TAB*] 1 tab PO QAM 05/06/15 [ History Confirmed 09/06/17] Potassium Chlor TAB* [Potassium Chlor TAB 20 MEQ*] 20 meq PO EVERY OTHER DAY [History Confirmed 09/06/17] Comfrey-3 Fatty Acids [Fish Oil] 1,000 mg PO QAM 12/28/16 [History Confirmed 09/06] metFORMIN* [Glucophage 500 MG TAB *] 500 mg PO BID 12/28/16 [History Confirmed 09/06/17] Atorvastatin* [Lipitor*] 0.5 tab PO QAM 06/20/17 [History Confirmed 09/06/17] Metolazone TAB* 2.5 mg PO SEE INSTRUCTIONS PRN 09/06/17 [History Confirmed 09/06] Plavix TAB* 75 mg PO DAILY 09/06/17 [History Confirmed 09/06/17] Torsemide TAB* 10 mg PO BID 09/06/17 [History Confirmed 09/06/17] Review of Systems - Measurements Intake and Output: Intake and Output Last 24 Hours 09/05/17 09/06/17 09/07/17 09/08/17 06:59 06:59 06:59 06:59 Intake Total 245 472 Output Total 1630 1650 Balance -2555 -1178 Weight 165 lb 6.4 oz Intake: IV Fluids 5 132 NS (0.9%) 5 k 132 IVPB 100 k 100 Oral 240 240 Output: Urine 1500 [place] 1300 1650 Other: # Bowel Movements 0 - Review of Systems Constitutional Symptoms: Positive: Weight Gain, Weakness, Fatigue Dermatology: Negative: Normal, Rash, Skin Lesions HEENT: Negative: Change in Hearing, Vertigo Eyes: Negative: Change in Vision, Double Vision, Eye Pain Thyroid: Negative: Tremor, Frequent Defecation, Constipation, Palpitations Pulmonary: Positive: Shortness of Breath Negative: Hemoptysis, Wheezing, Respiratory Distress, Exercise Intolerance Cardiology: Positive: Shortness of Breath, Swelling of Ankles, Edema, Orthopnea Negative: Chest Pain, Palpitations, Peripheral Vascular Dis, Syncope, Claudication Gastroenterology: Negative: Abdominal Pain, Nausea, Vomiting, Anorexia, Indigestion, Difficulty Swallowing, Heartburn, Constipation Genital - Urinary: Negative: Dysuria, Hematuria Musculoskeletal: Negative: Joint Pain, Joint Stiffness, Arthritis, Osteoporosis, Low Back Pain Endocrinology: Positive: Diabetes Negative: Obesity, Hyperglycemia, Hypoglycemia, Polydipsia, Polyuria Hematologic/Lymphatic: Positive: Use of Antiplatelet Drugs Negative: Hx Leukemia, Hx Lymphoma, Use of Anticoagulant Neurology: Negative: Migraines, Change in Balancing, Change in Coordination, Change in Speech, Change in Sphincter Function, Hx of Stroke\TIA, Hx Seizures Psychiatry: Negative: Guilt Feelings, Tearfulness Allergic/Immunologic: Negative: Hx HIV, Immunocompromise Review of Systems Statement: All other review of systems negative, unless stated above. Objective Vital Signs: Temp Pulse Resp BP Pulse Ox 99 F 94 18 89/69 93 09/07/17 17:15 09/07/17 17:15 09/07/17 17:15 09/07/17 17:15 09/07/17 17:15 Oxygen Devices in Use Now: None Appearance: frail, elderly Neck: Trachea Midline, - - uncertain jvp Respiratory: Symmetrical Chest Expansion and Respiratory Effort Cardiovascular: RRR, - - + systolic murmur, 1+ edema Abdominal: NL Sounds; No Tenderness; No Distention Extremities: No Clubbing, Cyanosis Skin: No Rash or Ulcers Neurological: Alert and Oriented x 3 Laboratory Results: 09/07/17 01:14 09/07/17 16:43 INR (Anticoag Therapy) 0.98 (0.77-1.02) 09/06/17 18:12 APTT 31.9 seconds (26.0-36.3) 01/04/18 18:12 Total Bilirubin 0.60 mg/dL (0.2-1.0) 09/06/17 18:12 AST 22 U/L (13-39) 09/06/17 18:12 ALT 35 U/L (7-52) 09/06/17 18:12 Alkaline Phosphatase 73 U/L (34-104) 09/06/17 18:12 B-Natriuretic Peptide 2568 pg/mL (-100) H 09/06/17 18:12 Total Protein 6.7 g/dL (6.4-8.9) 09/06/17 18:12 Albumin 3.7 g/dL (3.2-5.2) 09/06/17 18:12 Globulin 3.0 g/dL (2-4) 09/06/17 18:12 Albumin/Globulin Ratio 1.2 (1-3) 09/06/17 18:12 TSH 3.52 mcIU/mL (0.34-5.60) 09/06/17 18:12 09/07/17 09/07/17 09/07/17 01:09 07:36 12:10 Troponin I 0.09 H* 0.56 H* 1.88 H* 09/07/17 16:43 Troponin I 2.75 H* Labs from 08/28/2017: BNP 3221. WBC 8.6, HGB 13.4, HCT 40, PLT 193,000. BUN 39, creatinine 1.48. GFR 57.7. Troponin-I 0.14. CRP 3.84. TSH 3.59. K 3.6, magnesium 1.9. Diagnostic Imaging: CT of the head on 08/28/2017: Atrophy and stigmata of chronic small vessel ischemic disease, unchanged, more focal encephalomalacia at the right frontal lobe white matter. No acute intracranial process evident. Echocardiogram - (05/2012) mild by doppler EF 50-55% 2.19.14 cath: saphenous vein graft to the proximal right posterior descending artery, had a proximal lesion of 90%. Lesion was stented with distal embolic protection. Saphenous vein graft to the first diagonal: 85% lesion was stented with a 3.5 x 60 mm Promus Premiere stent placed in the lesion sequential saphenous vein graft to the mid third OM branch. distal anastomosis lesion had a 50% lesion in graft to the posterior right descending. saphenous venous graft of the 1st diagonal : 4.0 x 16 Promus Premiere stent. Echocardiogram - (10/2013) EF 50-55%, mild mean gradient 7 mm, Cardiac Cath - [facility]. 02/01/00 SVG to LAD, SVG to D1, Sequential SVG to PL1 and PL2. 05/11 Cath. lesion in LAD distal to graft, stented with an 2.5 mm x [address] [place] [address] Collier at [facility]. 100% midLAD, Patent SVG to D1, Patent SVG to LAD, patent SVG to PL of L dom Circ. Echocardiogram - (06/2017) EF of 40-45%, closer to 40%, moderate aortic stenosis, valve area of 1.3, 1.5 cm2, peak velocity across aortic valve was 2.2 mps, LVOT velocity .85 mps, mild to moderate aortic stenosis by continuity, more moderate to severe by 2D, mild MR, mild to moderate mitral valve stenosis with a mean gradient of 4.1, severely dilated ascending aorta T E E - (12/2016) EF of 40-45% with anterior apical hypokinesis, abnormal diastolic function, mildly reduced RV function, mild AI, moderate aortic stenosis by continuity, 2D planimetry at 1.4-1.5, mild to moderate MR, moderate mitral stenosis, mild TR, moderate degree of dilatation of the ascending aorta, plaque in descending aorta, moderate plaque in distal arch and descending thoracic aorta. NM stress test 2016: fixed mid LAD infarct cxr 09/06/2017: small b/l effusion EKG Data: admission ekg nsr, old AWMI, lvh, pvc Assessment/Plan Zane Farris is an 87 year old man with a history as above including DM, CAD/NM/ CABG/PCI, moderate who presents with decompensated HF, NSTEMI with deterioration of LVEF from 40 to 25% - Continue 3RD PRESSMAN aspirin and plavix - Start therapeutic anti-coagulation - Continue statin - Continue low dose coreg - Add digoxin 0.5 mg IV x 1 now followed by 0.125 mg po every other day (ordered ) - BP too low for Rudy/ARB currently - Hold metolazone - Continue torsemide and electrolyte replacement - Continue to trend troponin to peak - The significant deterioration of LVEF from October, 2017 is suggestive of CAD progression as primary decompensating factor - Further recommendations pending clinical course Thank you for allowing me to participate in the cardiovascular care of this patient. Please do not hesitate to contact me with questions or concerns.
[2017-09-07] MEDS ORDERED: metFORMIN* 500 MG TAB PO SCH (21:00)
[2017-09-07] MEDS: Enoxaparin(*) 60 MG/0.6 ML SYR SUBCUT SCH (22:09)
[2017-09-07] MEDS: Carvedilol TAB* 3.125 MG PO SCH (22:09)
[2017-09-08] MEDS: CMCS Pantoprazole TAB (NF) 40 MG TAB PO SCH (06:47)
[2017-09-08 08:54] LABS: EGFR Non-African American 56.1 (>60)
[2017-09-08] MEDS ORDERED: Torsemide TAB* 20 MG PO SCH (09:00)
[2017-09-08] MEDS: Atorvastatin* 10 MG TAB PO SCH (09:18)
[2017-09-08] MEDS: Aspirin Low Dose CHEW TAB* 81 MG PO SCH (09:18)
[2017-09-08] MEDS: Digoxin TAB* 0.125 MG PO SCH (09:20)
[2017-09-08] MEDS: Carvedilol TAB* 3.125 MG PO SCH ×2 (09:21→21:04)
[2017-09-08] MEDS: Clopidogrel TAB* 75 MG PO SCH (09:22)
[2017-09-08] MEDS: Docusate CAP* 100 MG PO SCH ×2 (09:22→21:04)
[2017-09-08] MEDS: Enoxaparin(*) 60 MG/0.6 ML SYR SUBCUT SCH ×2 (09:24→21:05)
[2017-09-08] MEDS ORDERED: Potassium Chlor TAB* 20 MEQ TAB.ER PO ONE (09:28)
[2017-09-08] MEDS ORDERED: Magnesium Sulfate 2 GM IV* 2 GM/50 ML BAG IVPB ONE (09:28)
[2017-09-08] MEDS: Magnesium Oxide TAB* 400 MG PO SCH (10:04)
[2017-09-08] MEDS ORDERED: KCL 10 MEQ/50 ML IVPREMIX* 20 MEQ/100 ML BAG IV ONE (10:45)
--- NOTE | 2017-09-08 11:23 | PN ---
Subjective Date of Service: 09/08/17 Interval History: pt feels well, denies CP, SOB. Had been in bed x 2 days and his heels hurt Objective Active Medications: Acetaminophen (Tylenol Tab*) 650 mg PO Q6H PRN PRN Reason: FEVER/PAIN Aspirin (Aspirin Low Dose Tab*) 81 mg PO QAM [facility] Last Admin: 09/08/17 09:18 Dose: 81 mg Atorvastatin Calcium (Lipitor*) 5 mg PO QAM [facility] Last Admin: 09/08/17 09:18 Dose: 5 mg Carvedilol (Coreg Tab*) 1.5625 mg PO BID [facility] Last Admin: 09/08/17 09:21 Dose: 1.5625 mg Clopidogrel Bisulfate (Plavix Tab*) 75 mg PO DAILY [facility] Last Admin: 09/08/17 09:22 Dose: 75 mg Digoxin (Lanoxin Tab*) 0.125 mg PO EVERY OTHER DAY [facility] Last Admin: 09/08/17 09:20 Dose: 0.125 mg Docusate Sodium (Colace Cap*) 200 mg PO BID [facility] Last Admin: 09/08/17 09:22 Dose: 200 mg Enoxaparin Sodium (Lovenox(*)) 60 mg SUBCUT Q12H [facility] Last Admin: 09/08/17 09:24 Dose: 60 mg Potassium Chloride (Potassium Chloride 10 Meq/50 Ml Ivpremix*) 20 meq in 100 mls @ 50 mls/hr IV ONCE ONE Stop: 09/08/17 12:44 Magnesium Oxide (Magox 400 Tab*) 800 mg PO DAILY [facility] Last Admin: 09/08/17 10:04 Dose: 800 mg Melatonin (Melatonin (Nf)) 3 mg PO BEDTIME PRN; Protocol PRN Reason: Sleep Ondansetron HCl (Zofran Inj*) 4 mg IV Q6H PRN PRN Reason: NAUSEA Pantoprazole Sodium (Protonix Tab (Nf)) 40 mg PO DAILY@0600 [facility] Last Admin: 09/08/17 06:47 Dose: 40 mg Potassium Chloride (Klor Con Er Tab*) 20 meq PO EVERY OTHER DAY [facility] Torsemide (Demadex*) 40 mg PO DAILY [facility] Last Admin: 09/08/17 09:22 Dose: 40 mg Vital Signs - 8 hr 09/08/17 09/08/17 09/08/17 04:13 07:38 08:00 Temperature 97.7 F 97.5 F Pulse Rate 93 72 Respiratory 20 16 16 Rate Blood Pressure 117/73 117/72 (mmHg) O2 Sat by Pulse 97 97 Oximetry 09/08/17 09:20 Temperature Pulse Rate 86 Respiratory Rate Blood Pressure (mmHg) O2 Sat by Pulse Oximetry Oxygen Devices in Use Now: None Appearance: 87 yo M in NAD, aAOx3 Eyes: No Scleral Icterus, PERRLA Ears/Nose/Mouth/Throat: NL Teeth, Lips, Gums, Mucous Membranes Moist Neck: NL Appearance and Movements; NL JVP, Trachea Midline Respiratory: Symmetrical Chest Expansion and Respiratory Effort, Clear to Auscultation Cardiovascular: RRR, - - 3/6 THOMAS Abdominal: NL Sounds; No Tenderness; No Distention, No Hepatosplenomegaly Lymphatic: No Cervical Adenopathy Extremities: No Edema, No Clubbing, Cyanosis Skin: No Rash or Ulcers, No Nodules or Sclerosis Neurological: Alert and Oriented x 3, NL Muscle Strength and Tone Result Diagrams: 09/07/17 01:14 09/08/17 08:04 Assess/Plan/Problems-Billing Assessment: 87 yo M with h/o DM, CAD (CABG-1999, stents-last cath in 2013), diastolic CHF, mod presents with increased RENTERIA - Patient Problems (1) Diastolic CHF Comment: diuresed > 2000 ml overnight. EF 45% on Echo 06/19, now down to 25% D/c Lasix , restarted home torsemide at 40 mg today (2) Troponin I above reference range Comment: Due to NSTEMI. Except RENTERIA pt is asymptomatic. Cont ASA/BB/Plavix, Lovenox x 24H more. Appreciate Dr. Hammond's consult, pt agreed to cath (3) DM2 (diabetes mellitus, type 2) Comment: with CKD 3, creat baseline Holding metformin due to creat close to 1.5 at admission ans planned cath HbA1C 7.1 cont ADA diet (4) Aortic stenosis Comment: VIVIAN 1.5 cm on DONNIE 12/18 -his symptoms are likely due to -pt was not interested in surgery in the past, now considering TAVR (5) Electrolyte abnormality Comment: K and Mg replacing Status and Disposition: inpatient
[2017-09-08] MEDS: Losartan TAB* 25 MG PO SCH (13:57)
--- NOTE | 2017-09-08 19:40 | ED ---
Davey Tolentino Abhishek, scribed for Giselle Haq MD on 09/06/17 at 1856 . Shortness of Breath - HPI Summary HPI Summary: This patient is a 87 year old M presenting to [facility] accompanied by son with a chief complaint of SOB worse since today. Pertinent PMHx of SOB for the past few months. The patient rates the pain 0/10 in severity. Symptoms aggravated by ambulation. Symptoms alleviated by nothing. Patient reports dehydration, urinary , edema in the LE, bruising, and depression. Patient denies fever chills, ear ache, [place], sore throat, neck pain, chest pain, urinary symptoms, and anxiety. Pt states he was Sent in by home health nurse for evaluation. - History of Current Complaint Chief Complaint: EDShortnessOfBreath Time Seen by Provider: 09/06/17 17:46 Hx Obtained From: Patient, Family/[employer] Maker Onset/Duration: Gradual Onset, Lasting Weeks - past few months, Still Present, Worse Since - today Timing: Constant Aggrevating Factors: Movement Alleviating Factors: Nothing - Risk Factors Cardiac: CHF - Allergy/Home Medications Allergies/Adverse Reactions: Allergies Allergy/AdvReac Type Severity Reaction Status Date / Time Diltiazem [From Cartia XT] Allergy Unknown Unknown Verified 06/20/17 16:10 Reaction Details Atenolol Allergy Unknown Verified 06/20/17 16:10 Reaction Details Codeine Allergy Stomach Verified 06/20/17 16:10 Cramps Home Medications: Home Medications Metolazone TAB* 2.5 mg PO SEE INSTRUCTIONS PRN 09/06/17 [History Confirmed 09/06] Plavix TAB* 75 mg PO DAILY 09/06/17 [History Confirmed 09/06/17] Torsemide TAB* 10 mg PO BID 09/06/17 [History Confirmed 09/06/17] PMH/Surg Hx/FS Hx/Imm Hx Endocrine/Hematology History: Reports: Hx Diabetes - TYPE II- ON ORAL MEDICATION FOR Cardiovascular History: Reports: Hx Coronary Artery Disease - STENTS IN PLACE, BYPASS IN 1999, Hx Hypertension, Hx Valvular Heart Disease, Other Cardiovascular Problems/Disorders - DR. HOYT- LAST SEEN 2 WEEKS AGO Denies: Hx Pacemaker/ICD Respiratory History: Reports: Hx Pulmonary Edema Denies: Hx Asthma History: Denies: Hx Renal Disease Sensory History: Reports: Hx Cataracts, Hx Contacts or Glasses - GLASSES Denies: Hx Hearing Aid Opthamlomology History: Reports: Hx Cataracts, Hx Contacts or Glasses - GLASSES Neurological History: Reports: Hx Transient Ischemic Attacks (TIA) Psychiatric History: Denies: Hx Panic Disorder - Surgical History Surgery Procedure, Year, and Place: TONSILECTOMY, CTR-LT 09/16; BYPASS QUADRUPLE 1999,BILAT EYE LENS REPLACEMENT. CARDIAC STENTS Hx Anesthesia Reactions: No - Immunization History Date of Influenza Vaccine: 06/19 Immunizations Up to Date: Yes Infectious Disease History: No Infectious Disease History: Denies: Traveled Outside the [place] in Last 30 Days - Family History Known Family History: Positive: Hypertension, Other - Negative blood clotting diseases - Social History Lives: Alone Alcohol Use: Daily Alcohol Amount: 1 DAILY Substance Use Type: Reports: None Smoking Status (MU): Never Smoked Tobacco Have You Smoked in the Last Year: No Review of Systems Positive: Other - dehydration. Negative: Fever, Chills Negative: Blurred Vision Negative: Sore Throat, Ear Ache Negative: Chest Pain Positive: Shortness Of Breath Positive: no symptoms reported Musculoskeletal: Other - negative neck pain Positive: Edema - edema in the LE Negative: Bruising Negative: Headache Positive: Depressed. Negative: Anxious All Other Systems Reviewed And Are Negative: No Physical Exam - Summary Physical Exam Summary: Appearance: Alert, conversive, nontoxic appearing Skin: Warm, dry, no mottling, no rashes, no contusions, Multiple nevi noted, Tissue defect to the left ear HEENT: EOMI, PERRL, Slightly dry mucous membranes Neck: No masses on the neck, supple Respiratory: Clear to auscultation, breath sounds present, no rales, no rhonchi , no wheezes Cardiovascular: RRR, pulses are symmetrical in both lower and upper extremities Abdomen: Soft, non-tender Bowel Sounds: Present Musculoskeletal: Edema to his LE Neurological: A&Ox3, CN II-XII Intact, moving all extremities symmetrically Psychiatric: Normal affect and mood Triage Information Reviewed: Yes Vital Signs On Initial Exam: Initial Vitals Temp Pulse Resp BP Pulse Ox 97.2 F 92 20 113/90 100 09/06/17 17:03 09/06/17 17:03 09/06/17 17:03 09/06/17 17:03 09/06/17 17:03 Vital Signs Reviewed: Yes - [place] Coma Scale Coma Scale Total: 15 Diagnostics - Vital Signs Vital Signs Temp Pulse Resp BP Pulse Ox 09/06/17 18:00 81 26 98 09/06/17 17:36 83 97 09/06/17 17:35 110/79 09/06/17 17:03 97.2 F 92 20 113/90 100 - Laboratory Lab Results: Lab Results 09/06/17 09/06/17 09/06/17 Range/Units 18:12 18:12 18:12 WBC 8.5 (3.5-10.8) 10^3/ul RBC 4.57 (4.0-5.4) 10^6/ul Hgb 14.4 (14.0-18.0) g/dl Hct 43 (42-52) % MCV 94 (80-94) fL MCH 32 H (27-31) pg MCHC 34 (31-36) g/dl RDW 14 (10.5-15) % Plt Count 193 (150-450) 10^3/ul MPV 9 (7.4-10.4) um3 Neut % (Auto) 71.7 (38-83) % Lymph % (Auto) 15.3 L (25-47) % [place] % (Auto) 10.7 H (1-9) % Eos % (Auto) 1.5 (0-6) % Baso % (Auto) 0.8 (0-2) % Absolute Neuts (auto) 6.1 (1.5-7.7) 10^3/ul Absolute Lymphs (auto) 1.3 (1.0-4.8) 10^3/ul Absolute Monos (auto) 0.9 H (0-0.8) 10^3/ul Absolute Eos (auto) 0.1 (0-0.6) 10^3/ul Absolute Basos (auto) 0.1 (0-0.2) 10^3/ul Absolute Nucleated RBC 0 10^3/ul Nucleated RBC % 0 Sodium 140 (133-145) mmol/L Potassium 3.8 (3.5-5.0) mmol/L Chloride 101 (101-111) mmol/L Carbon Dioxide 30 (22-32) mmol/L Anion Gap 9 (2-11) mmol/L BUN 36 H (6-24) mg/dL Creatinine 1.56 H (0.67-1.17) mg/dL Est GFR ( Amer) 54.3 (>60) Est GFR (Non-Af Amer) 42.2 (>60) BUN/Creatinine Ratio 23.1 H (8-20) Glucose 109 H (70-100) mg/dL Calcium 9.1 (8.6-10.3) mg/dL Magnesium 2.0 (1.9-2.7) mg/dL Total Bilirubin 0.60 (0.2-1.0) mg/dL AST 22 (13-39) U/L ALT 35 (7-52) U/L Alkaline Phosphatase 73 (34-104) U/L Troponin I 0.08 H* (<0.04) ng/mL B-Natriuretic Peptide 2568 H ( - 100) pg/mL Total Protein 6.7 (6.4-8.9) g/dL Albumin 3.7 (3.2-5.2) g/dL Globulin 3.0 (2-4) g/dL Albumin/Globulin Ratio 1.2 (1-3) TSH Pending Influenza A (Rapid) (Negative) Influenza B (Rapid) (Negative) 09/06/17 Range/Units 18:21 WBC (3.5-10.8) 10^3/ul RBC (4.0-5.4) 10^6/ul Hgb (14.0-18.0) g/dl Hct (42-52) % MCV (80-94) fL MCH (27-31) pg MCHC (31-36) g/dl RDW (10.5-15) % Plt Count (150-450) 10^3/ul MPV (7.4-10.4) um3 Neut % (Auto) (38-83) % Lymph % (Auto) (25-47) % [place] % (Auto) (1-9) % Eos % (Auto) (0-6) % Baso % (Auto) (0-2) % Absolute Neuts (auto) (1.5-7.7) 10^3/ul Absolute Lymphs (auto) (1.0-4.8) 10^3/ul Absolute Monos (auto) (0-0.8) 10^3/ul Absolute Eos (auto) (0-0.6) 10^3/ul Absolute Basos (auto) (0-0.2) 10^3/ul Absolute Nucleated RBC 10^3/ul Nucleated RBC % Sodium (133-145) mmol/L Potassium (3.5-5.0) mmol/L Chloride (101-111) mmol/L Carbon Dioxide (22-32) mmol/L Anion Gap (2-11) mmol/L BUN (6-24) mg/dL Creatinine (0.67-1.17) mg/dL Est GFR ( Amer) (>60) Est GFR (Non-Af Amer) (>60) BUN/Creatinine Ratio (8-20) Glucose (70-100) mg/dL Calcium (8.6-10.3) mg/dL Magnesium (1.9-2.7) mg/dL Total Bilirubin (0.2-1.0) mg/dL AST (13-39) U/L ALT (7-52) U/L Alkaline Phosphatase (34-104) U/L Troponin I (<0.04) ng/mL B-Natriuretic Peptide ( - 100) pg/mL Total Protein (6.4-8.9) g/dL Albumin (3.2-5.2) g/dL Globulin (2-4) g/dL Albumin/Globulin Ratio (1-3) TSH Influenza A (Rapid) Negative (Negative) Influenza B (Rapid) Negative (Negative) Result Diagrams: 09/07/17 01:14 09/08/17 08:04 Lab Statement: Any lab studies that have been ordered have been reviewed, and results considered in the medical decision making process. - Radiology Chest X-ray Radiology Interpretation Completed By: Radiologist - Chest X-ray reveals no significant change in small bilateral pleural effusions and proportional basilar atelectasis compared with the August 28, 2017 exam. ED physician has reviewed this radiology report and agrees. - EKG 1750 EKG Rhythm: Sinus Rhythm - 79 bpm Ectopy: PVCs EKG Interpretation: taken at 1750, normal QRS, QTc, old anterior infract, no AMI Course/Dx - Course Course Of Treatment: We discussed patient care with Dr. Thomas at 1932 and he accepts patient care. The dx will be CHF. The patient is agreeable with this plan. - Diagnoses Provider Diagnoses: CHF (congestive heart failure) - Physician Notifications Discussed Care of Patient With: Shahab Thomas - We discussed patient care and he accepts patient care. Time Discussed With Above Provider: 19:32 Instructed by Provider To: Admit As Inpatient Discharge - Discharge Plan Condition: Stable Disposition: ADMITTED TO [facility] documentation as recorded by the Davey beltran Abhishek accurately reflects the service I personally performed and the decisions made by , Giselle Haq MD.
[2017-09-09] MEDS: CMCS Pantoprazole TAB (NF) 40 MG TAB PO SCH (05:14)
[2017-09-09 06:00] LABS: EGFR Non-African American 55.5 (>60)
[2017-09-09] MEDS ORDERED: Potassium Chloride LIQUID* 20 MEQ PACKET PO ONE (08:21)
[2017-09-09] MEDS ORDERED: Potassium Chlor TAB* 20 MEQ TAB.ER PO SCH ×2 (09:00)
[2017-09-09] MEDS: Losartan TAB* 25 MG PO SCH (09:15)
[2017-09-09] MEDS: Atorvastatin* 10 MG TAB PO SCH (09:15)
[2017-09-09] MEDS: Clopidogrel TAB* 75 MG PO SCH (09:15)
[2017-09-09] MEDS: Docusate CAP* 100 MG PO SCH ×2 (09:15→21:02)
[2017-09-09] MEDS: Aspirin Low Dose CHEW TAB* 81 MG PO SCH (09:15)
[2017-09-09] MEDS: Carvedilol TAB* 3.125 MG PO SCH ×2 (09:15→21:01)
[2017-09-09] MEDS: Magnesium Oxide TAB* 400 MG PO SCH (09:15)
--- NOTE | 2017-09-09 10:06 | PN ---
Subjective Date of Service: 09/09/17 Interval History: Pt feels "OK", unchanged from yesterday. Denies CP, but very SOB and tired when tries to ambulate Objective Active Medications: Acetaminophen (Tylenol Tab*) 650 mg PO Q6H PRN PRN Reason: FEVER/PAIN Aspirin (Aspirin Low Dose Tab*) 81 mg PO QAM [facility] Last Admin: 09/09/17 09:15 Dose: 81 mg Atorvastatin Calcium (Lipitor*) 5 mg PO QAM [facility] Last Admin: 09/09/17 09:15 Dose: 5 mg Carvedilol (Coreg Tab*) 3.125 mg PO BID [facility] Last Admin: 09/09/17 09:15 Dose: 3.125 mg Clopidogrel Bisulfate (Plavix Tab*) 75 mg PO DAILY [facility] Last Admin: 09/09/17 09:15 Dose: 75 mg Digoxin (Lanoxin Tab*) 0.125 mg PO EVERY OTHER DAY [facility] Last Admin: 09/08/17 09:20 Dose: 0.125 mg Docusate Sodium (Colace Cap*) 200 mg PO BID [facility] Last Admin: 09/09/17 09:15 Dose: 200 mg Heparin Sodium (Porcine) (Heparin Vial(*)) 5,000 units SUBCUT Q8HR [facility] Losartan Potassium (Cozaar Tab*) 25 mg PO DAILY [facility] Last Admin: 09/09/17 09:15 Dose: 25 mg Magnesium Oxide (Magox 400 Tab*) 800 mg PO DAILY [facility] Last Admin: 09/09/17 09:15 Dose: 800 mg Melatonin (Melatonin (Nf)) 3 mg PO BEDTIME PRN; Protocol PRN Reason: Sleep Ondansetron HCl (Zofran Inj*) 4 mg IV Q6H PRN PRN Reason: NAUSEA Pantoprazole Sodium (Protonix Tab (Nf)) 40 mg PO DAILY@0600 [facility] Last Admin: 09/09/17 05:14 Dose: 40 mg Potassium Chloride (Klor Con Er Tab*) 20 meq PO DAILY [facility] Last Admin: 09/09/17 09:16 Dose: 20 meq Vital Signs - 8 hr 09/09/17 09/09/17 04:28 07:54 Temperature 98.2 F 97.3 F Pulse Rate 86 82 Respiratory 20 20 Rate Blood Pressure 115/74 108/65 (mmHg) O2 Sat by Pulse 96 94 Oximetry Oxygen Devices in Use Now: None Appearance: 87 yo M in nAD, aAOx3 Eyes: No Scleral Icterus, PERRLA Ears/Nose/Mouth/Throat: NL Teeth, Lips, Gums, Mucous Membranes Moist Neck: NL Appearance and Movements; NL JVP, Trachea Midline Respiratory: Symmetrical Chest Expansion and Respiratory Effort, Clear to Auscultation Cardiovascular: RRR, - - 2/6 THOMAS at RUSB Abdominal: NL Sounds; No Tenderness; No Distention, No Hepatosplenomegaly Lymphatic: No Cervical Adenopathy Extremities: No Edema, No Clubbing, Cyanosis Skin: No Rash or Ulcers, No Nodules or Sclerosis Neurological: Alert and Oriented x 3, NL Muscle Strength and Tone Result Diagrams: 09/07/17 01:14 09/09/17 05:19 Additional Lab and Data: Lab Results 09/06/17 09/06/17 09/06/17 Range/Units 18:12 18:12 18:12 WBC 8.5 (3.5-10.8) 10^3/ul RBC 4.57 (4.0-5.4) 10^6/ul Hgb 14.4 (14.0-18.0) g/dl Hct 43 (42-52) % MCV 94 (80-94) fL MCH 32 H (27-31) pg MCHC 34 (31-36) g/dl RDW 14 (10.5-15) % Plt Count 193 (150-450) 10^3/ul MPV 9 (7.4-10.4) um3 Neut % (Auto) 71.7 (38-83) % Lymph % (Auto) 15.3 L (25-47) % [place] % (Auto) 10.7 H (1-9) % Eos % (Auto) 1.5 (0-6) % Baso % (Auto) 0.8 (0-2) % Absolute Neuts (auto) 6.1 (1.5-7.7) 10^3/ul Absolute Lymphs (auto) 1.3 (1.0-4.8) 10^3/ul Absolute Monos (auto) 0.9 H (0-0.8) 10^3/ul Absolute Eos (auto) 0.1 (0-0.6) 10^3/ul Absolute Basos (auto) 0.1 (0-0.2) 10^3/ul Absolute Nucleated RBC 0 10^3/ul Nucleated RBC % 0 Sodium 140 (133-145) mmol/L Potassium 3.8 (3.5-5.0) mmol/L Chloride 101 (101-111) mmol/L Carbon Dioxide 30 (22-32) mmol/L Anion Gap 9 (2-11) mmol/L BUN 36 H (6-24) mg/dL Creatinine 1.56 H (0.67-1.17) mg/dL Est GFR ( Amer) 54.3 (>60) Est GFR (Non-Af Amer) 42.2 (>60) BUN/Creatinine Ratio 23.1 H (8-20) Glucose 109 H (70-100) mg/dL Calcium 9.1 (8.6-10.3) mg/dL Magnesium 2.0 (1.9-2.7) mg/dL Total Bilirubin 0.60 (0.2-1.0) mg/dL AST 22 (13-39) U/L ALT 35 (7-52) U/L Alkaline Phosphatase 73 (34-104) U/L Troponin I 0.08 H* (<0.04) ng/mL B-Natriuretic Peptide 2568 H ( - 100) pg/mL Total Protein 6.7 (6.4-8.9) g/dL Albumin 3.7 (3.2-5.2) g/dL Globulin 3.0 (2-4) g/dL Albumin/Globulin Ratio 1.2 (1-3) TSH Pending Influenza A (Rapid) (Negative) Influenza B (Rapid) (Negative) 09/06/17 Range/Units 18:21 WBC (3.5-10.8) 10^3/ul RBC (4.0-5.4) 10^6/ul Hgb (14.0-18.0) g/dl Hct (42-52) % MCV (80-94) fL MCH (27-31) pg MCHC (31-36) g/dl RDW (10.5-15) % Plt Count (150-450) 10^3/ul MPV (7.4-10.4) um3 Neut % (Auto) (38-83) % Lymph % (Auto) (25-47) % [place] % (Auto) (1-9) % Eos % (Auto) (0-6) % Baso % (Auto) (0-2) % Absolute Neuts (auto) (1.5-7.7) 10^3/ul Absolute Lymphs (auto) (1.0-4.8) 10^3/ul Absolute Monos (auto) (0-0.8) 10^3/ul Absolute Eos (auto) (0-0.6) 10^3/ul Absolute Basos (auto) (0-0.2) 10^3/ul Absolute Nucleated RBC 10^3/ul Nucleated RBC % Sodium (133-145) mmol/L Potassium (3.5-5.0) mmol/L Chloride (101-111) mmol/L Carbon Dioxide (22-32) mmol/L Anion Gap (2-11) mmol/L BUN (6-24) mg/dL Creatinine (0.67-1.17) mg/dL Est GFR ( Amer) (>60) Est GFR (Non-Af Amer) (>60) BUN/Creatinine Ratio (8-20) Glucose (70-100) mg/dL Calcium (8.6-10.3) mg/dL Magnesium (1.9-2.7) mg/dL Total Bilirubin (0.2-1.0) mg/dL AST (13-39) U/L ALT (7-52) U/L Alkaline Phosphatase (34-104) U/L Troponin I (<0.04) ng/mL B-Natriuretic Peptide ( - 100) pg/mL Total Protein (6.4-8.9) g/dL Albumin (3.2-5.2) g/dL Globulin (2-4) g/dL Albumin/Globulin Ratio (1-3) TSH Influenza A (Rapid) Negative (Negative) Influenza B (Rapid) Negative (Negative) Assess/Plan/Problems-Billing Assessment: 87 yo M with h/o DM, CAD (CABG-1999, stents-last cath in 2013), diastolic CHF, mod presents with increased RENTERIA - Patient Problems (1) Diastolic CHF Comment: diuresed > 2000 ml overnight again. will hold diuretic priror to planned cath tomorrow. EF 45% on Echo 06/19, now down to 25% (2) Troponin I above reference range Comment: Due to NSTEMI. Except RENTERIA pt is asymptomatic. Cont ASA/BB/Plavix, Lovenox d/c's today Appreciate Dr. Hammond's consult, pt agreed to cath (3) DM2 (diabetes mellitus, type 2) Comment: with CKD 3, creat baseline Holding metformin due to creat close to 1.5 at admission HbA1C 7.1 cont ADA diet (4) Aortic stenosis Comment: VIVIAN 1.5 cm on DONNIE 12/18 -his symptoms are likely due to -pt was not interested in surgery in the past, now considering TAVR (5) Electrolyte abnormality Comment: K and Mg replacing (6) DVT prophylaxis Comment: heparin sc Status and Disposition: inpatient
[2017-09-09] MEDS: Heparin VIAL(*) 5000 UNITS/ML VIAL (FIVE THOUSAND) SUBCUT SCH ×2 (14:07→21:01)
[2017-09-10] MEDS: Heparin VIAL(*) 5000 UNITS/ML VIAL (FIVE THOUSAND) SUBCUT SCH ×3 (04:40→21:42)
[2017-09-10 04:41] LABS: Urine Appearance Turbid; Urine Blood 3+ (Negative); Urine Ketones Negative (Negative); Urine Protein 2+(100 mg/dL) (Negative); Urine Specific Gravity 1.019 (1.010-1.030); Urine Urobilinogen Negative (Negative)
[2017-09-10 04:43] LABS: Urine Color Red
[2017-09-10] MEDS: CMCS Pantoprazole TAB (NF) 40 MG TAB PO SCH (06:10)
--- NOTE | 2017-09-10 08:26 | PN ---
Subjective Date of Service: 09/10/17 Interval History: Pt states he is currently feeling ok. He denies any SOB at this time. He states that when he sits up in bed or is upright he feels lightheaded and off balance. He states he has walked 3 times since admission and adamantly refuses STR so we discussed the need to ambulate more. Objective Active Medications: Acetaminophen (Tylenol Tab*) 650 mg PO Q6H PRN PRN Reason: FEVER/PAIN Aspirin (Aspirin Low Dose Tab*) 81 mg PO QAM [facility] Last Admin: 09/09/17 09:15 Dose: 81 mg Atorvastatin Calcium (Lipitor*) 5 mg PO QAM [facility] Last Admin: 09/09/17 09:15 Dose: 5 mg Carvedilol (Coreg Tab*) 3.125 mg PO BID [facility] Last Admin: 09/09/17 21:01 Dose: 3.125 mg Clopidogrel Bisulfate (Plavix Tab*) 75 mg PO DAILY [facility] Last Admin: 09/09/17 09:15 Dose: 75 mg Digoxin (Lanoxin Tab*) 0.125 mg PO EVERY OTHER DAY [facility] Last Admin: 09/08/17 09:20 Dose: 0.125 mg Docusate Sodium (Colace Cap*) 200 mg PO BID [facility] Last Admin: 09/09/17 21:02 Dose: 200 mg Heparin Sodium (Porcine) (Heparin Vial(*)) 5,000 units SUBCUT Q8HR [facility] Last Admin: 09/10/17 04:40 Dose: Not Given Losartan Potassium (Cozaar Tab*) 25 mg PO DAILY [facility] Last Admin: 09/09/17 09:15 Dose: 25 mg Magnesium Oxide (Magox 400 Tab*) 800 mg PO DAILY [facility] Last Admin: 09/09/17 09:15 Dose: 800 mg Melatonin (Melatonin (Nf)) 3 mg PO BEDTIME PRN; Protocol PRN Reason: Sleep Last Admin: 09/10/17 03:10 Dose: 3 mg Ondansetron HCl (Zofran Inj*) 4 mg IV Q6H PRN PRN Reason: NAUSEA Pantoprazole Sodium (Protonix Tab (Nf)) 40 mg PO DAILY@0600 [facility] Last Admin: 09/10/17 06:10 Dose: 40 mg Potassium Chloride (Klor Con Er Tab*) 20 meq PO DAILY [facility] Last Admin: 09/09/17 09:16 Dose: 20 meq Vital Signs - 8 hr 09/10/17 03:24 Temperature 98.3 F Pulse Rate 72 Respiratory 20 Rate Blood Pressure 99/57 (mmHg) O2 Sat by Pulse 96 Oximetry Oxygen Devices in Use Now: None Appearance: Elderly male sleeping in bed, awakens to voice, NAD Eyes: No Scleral Icterus Ears/Nose/Mouth/Throat: Mucous Membranes Moist Respiratory: Symmetrical Chest Expansion and Respiratory Effort, Clear to Auscultation Cardiovascular: RRR, No Edema, - - III/ systolic murmur heard across the precordium Abdominal: NL Sounds; No Tenderness; No Distention Extremities: No Clubbing, Cyanosis Skin: No Rash or Ulcers, No Nodules or Sclerosis Neurological: Alert and Oriented x 3 - per nursing report pt was confused this am Result Diagrams: 09/07/17 01:14 09/09/17 05:19 Additional Lab and Data: Lab Results 09/06/17 09/06/17 09/06/17 Range/Units 18:12 18:12 18:12 WBC 8.5 (3.5-10.8) 10^3/ul RBC 4.57 (4.0-5.4) 10^6/ul Hgb 14.4 (14.0-18.0) g/dl Hct 43 (42-52) % MCV 94 (80-94) fL MCH 32 H (27-31) pg MCHC 34 (31-36) g/dl RDW 14 (10.5-15) % Plt Count 193 (150-450) 10^3/ul MPV 9 (7.4-10.4) um3 Neut % (Auto) 71.7 (38-83) % Lymph % (Auto) 15.3 L (25-47) % [place] % (Auto) 10.7 H (1-9) % Eos % (Auto) 1.5 (0-6) % Baso % (Auto) 0.8 (0-2) % Absolute Neuts (auto) 6.1 (1.5-7.7) 10^3/ul Absolute Lymphs (auto) 1.3 (1.0-4.8) 10^3/ul Absolute Monos (auto) 0.9 H (0-0.8) 10^3/ul Absolute Eos (auto) 0.1 (0-0.6) 10^3/ul Absolute Basos (auto) 0.1 (0-0.2) 10^3/ul Absolute Nucleated RBC 0 10^3/ul Nucleated RBC % 0 Sodium 140 (133-145) mmol/L Potassium 3.8 (3.5-5.0) mmol/L Chloride 101 (101-111) mmol/L Carbon Dioxide 30 (22-32) mmol/L Anion Gap 9 (2-11) mmol/L BUN 36 H (6-24) mg/dL Creatinine 1.56 H (0.67-1.17) mg/dL Est GFR ( Amer) 54.3 (>60) Est GFR (Non-Af Amer) 42.2 (>60) BUN/Creatinine Ratio 23.1 H (8-20) Glucose 109 H (70-100) mg/dL Calcium 9.1 (8.6-10.3) mg/dL Magnesium 2.0 (1.9-2.7) mg/dL Total Bilirubin 0.60 (0.2-1.0) mg/dL AST 22 (13-39) U/L ALT 35 (7-52) U/L Alkaline Phosphatase 73 (34-104) U/L Troponin I 0.08 H* (<0.04) ng/mL B-Natriuretic Peptide 2568 H ( - 100) pg/mL Total Protein 6.7 (6.4-8.9) g/dL Albumin 3.7 (3.2-5.2) g/dL Globulin 3.0 (2-4) g/dL Albumin/Globulin Ratio 1.2 (1-3) TSH Pending Influenza A (Rapid) (Negative) Influenza B (Rapid) (Negative) 09/06/17 Range/Units 18:21 WBC (3.5-10.8) 10^3/ul RBC (4.0-5.4) 10^6/ul Hgb (14.0-18.0) g/dl Hct (42-52) % MCV (80-94) fL MCH (27-31) pg MCHC (31-36) g/dl RDW (10.5-15) % Plt Count (150-450) 10^3/ul MPV (7.4-10.4) um3 Neut % (Auto) (38-83) % Lymph % (Auto) (25-47) % [place] % (Auto) (1-9) % Eos % (Auto) (0-6) % Baso % (Auto) (0-2) % Absolute Neuts (auto) (1.5-7.7) 10^3/ul Absolute Lymphs (auto) (1.0-4.8) 10^3/ul Absolute Monos (auto) (0-0.8) 10^3/ul Absolute Eos (auto) (0-0.6) 10^3/ul Absolute Basos (auto) (0-0.2) 10^3/ul Absolute Nucleated RBC 10^3/ul Nucleated RBC % Sodium (133-145) mmol/L Potassium (3.5-5.0) mmol/L Chloride (101-111) mmol/L Carbon Dioxide (22-32) mmol/L Anion Gap (2-11) mmol/L BUN (6-24) mg/dL Creatinine (0.67-1.17) mg/dL Est GFR ( Amer) (>60) Est GFR (Non-Af Amer) (>60) BUN/Creatinine Ratio (8-20) Glucose (70-100) mg/dL Calcium (8.6-10.3) mg/dL Magnesium (1.9-2.7) mg/dL Total Bilirubin (0.2-1.0) mg/dL AST (13-39) U/L ALT (7-52) U/L Alkaline Phosphatase (34-104) U/L Troponin I (<0.04) ng/mL B-Natriuretic Peptide ( - 100) pg/mL Total Protein (6.4-8.9) g/dL Albumin (3.2-5.2) g/dL Globulin (2-4) g/dL Albumin/Globulin Ratio (1-3) TSH Influenza A (Rapid) Negative (Negative) Influenza B (Rapid) Negative (Negative) Assess/Plan/Problems-Billing Mr Sanders is an 87 yo M with h/o DM, CAD (CABG-1999, stents-last cath in 2013), diastolic CHF, mod presents with increased RENTERIA. - Patient Problems (1) NSTEMI (non-ST elevated myocardial infarction) Current Visit: Yes Status: Acute Code(s): I21.4 - NON-ST ELEVATION (NSTEMI) MYOCARDIAL INFARCTION SNOMED Code(s): 854345630 Comment: The patient's troponin peaked at 2.75. Per Dr. Squires's note the patient is to have a catheterization however orders are not in place for this. Will contact Dr. Hammond to discuss further. Will continue ASA, plavix, he has completed lovenox therapy. Continue NPO status for now. (2) Systolic CHF Current Visit: Yes Status: Acute Code(s): I50.20 - UNSPECIFIED SYSTOLIC ( CONGESTIVE) HEART FAILURE SNOMED Code(s): 055393553 Comment: The patient appears euvolemic today. Will resume torsemide but only 20mg daily. Per Dr. Lance's note 08/30/17, the patient weighted 184lb with his shoes on and he had 1-2+ pitting edema. He now has no LE edema and his weight is down to 155lb (without shoes). (3) Hematuria Current Visit: Yes Status: Acute Code(s): R31.9 - HEMATURIA, UNSPECIFIED SNOMED Code(s): 69914983 Comment: It appears the huber catheter was placed on admission for I/O monitoring. The patient now has significant hematuria likely secondary to trauma and being on ASA, plavix and previously lovenox. Remove huber today and monitor for signs of obstruction given the bleeding. (4) DM2 (diabetes mellitus, type 2) Current Visit: Yes Status: Acute Comment: AM sugars have been under excellent control. Continue diabetic diet. Metformin on hold given elevated creatinine on admission. Will need to decide prior to discharge about resuming the metformin. (5) DVT prophylaxis Current Visit: Yes Status: Acute Code(s): PET2027 - SNOMED Code(s): 563663422 Comment: SQ heparin (6) DNR (do not resuscitate) Current Visit: Yes Status: Acute Status and Disposition: .
[2017-09-10 08:52] LABS: EGFR Non-African American 61.9 (>60)
[2017-09-10] MEDS: Aspirin Low Dose CHEW TAB* 81 MG PO SCH (08:52)
[2017-09-10] MEDS: Docusate CAP* 100 MG PO SCH ×2 (08:52→21:41)
[2017-09-10] MEDS: Losartan TAB* 25 MG PO SCH (08:53)
[2017-09-10] MEDS: Clopidogrel TAB* 75 MG PO SCH (08:53)
[2017-09-10] MEDS: Magnesium Oxide TAB* 400 MG PO SCH (08:53)
[2017-09-10] MEDS: Digoxin TAB* 0.125 MG PO SCH (08:54)
[2017-09-10] MEDS: Atorvastatin* 10 MG TAB PO SCH (08:54)
[2017-09-10] MEDS: Potassium Chlor TAB* 20 MEQ TAB.ER PO SCH ×2 (08:55→21:42)
[2017-09-10] MEDS: Carvedilol TAB* 3.125 MG PO SCH ×2 (08:55→21:42)
[2017-09-10] MEDS ORDERED: Torsemide TAB* 20 MG PO SCH (09:00)
[2017-09-10] MEDS: Torsemide TAB* 20 MG PO SCH (11:17)
--- NOTE | 2017-09-10 11:59 | TRS ---
CC: Dr. Lance; Dr. Rbui * DATE OF ADMISSION: 09/06/2017. DATE OF DISCHARGE: 09/11/2017. PRIMARY CARE PHYSICIAN: Dr. Rubi. MORTGAGE UNDERWRITER: Dr. Lance. PRINCIPAL DIAGNOSES: 1. Acute decompensated systolic congestive heart failure with newly identified reduced ejection fraction. 2. [id number] [place]. SECONDARY DIAGNOSES: 1. Moderate aortic stenosis. 2. Diastolic congestive heart failure. 3. Hematuria, likely secondary to traumatic Coronado insertion. 4. Type 2 diabetes. DISCHARGE MEDICATIONS: 1. Tylenol 650 mg p.o. q.6 hours prn pain. 2. Aspirin 81 mg p.o. daily. 3. Lipitor 5 mg p.o. daily. 4. Coreg 3.125 mg p.o. twice daily (increased dose). 5. Plavix 75 mg p.o. daily. 6. Digoxin 0.125 mg p.o. every other day (new). 7. Colace 200 mg p.o. twice daily (new). 8. Heparin 5000 units subcutaneous q.8 hours. 9. Losartan 25 mg p.o. daily (new). 10. Magnesium Oxide 800 mg p.o. daily (new). 11. Melatonin 3 mg p.o. at bedtime prn insomnia. 12. Zofran 4 mg IV q.6 hours prn nausea. 13. Potassium Chloride 20 mEq p.o. twice daily. 14. Torsemide 20 mg p.o. daily (reduced dose). Medications currently on hold: 1. Metolazone. 2. Metformin. 3. [place] 3 fatty acid. 4. Multivitamin. HOSPITAL COURSE: Mr. Sanders is an 87-year-old male who presented to the emergency room on 09/06/2017 with complaints of shortness of breath. In addition to the shortness of breath, he has had gradual onset of increasing bilateral lower extremity edema. The patient is followed closely with Dr. Lance. Dr. Lance had most recently had the patient on Torsemide 40 mg daily and was initiated on Metolazone. The patient, despite this, continued to have these symptoms. The patient was found to have an elevated BNP of greater than 2500 and a slightly elevated troponin of 0.08 on admission. The patient was admitted for acute on chronic diastolic CHF. The patient continued to have his troponin trend upwards, peaking at 2.75 on 09/07/2017 at 1643. The patient was then seen in consultation by Dr. Nitin Oquendo from Cardiology who recommended initiating full anticoagulation with Lovenox times 48 hours. Also, Digoxin was added. The patient was then seen in consultation by Dr. Hammond on 09/09/2017. At that time, the consideration was for cardiac catheterization versus Dobutamine stress echo versus transfer for evaluation of possible TAVR given his known history of at least moderate aortic stenosis. The patient did have a transthoracic echocardiogram which revealed his EF to have dropped from 40 percent from June of 2017 to 25 percent on the most recent echo. It was felt that this was likely secondary to progressive coronary artery disease. The patient ultimately diuresed very well during the course of this hospitalization. The patient's reported weight at Dr. Lance's office on 2016 was 184 pounds with his shoes on. The patient's weight on 09/10/2017 in the hospital was 155 pounds. The patient appears to have diuresed a significant amount of fluid. Also, according to Dr. Lance's note from 2016, the patient had 1 to 2+ bilateral lower extremity pitting edema. At this point, the patient has no lower extremity edema. The patient again spoke with Dr. Hammond, made it clear that he was interested in pursuing possible TAVR. At that point, Dr. Hammond spoke with Dr. Moise who kindly accepted the patient in transfer to [facility]. The patient will be transferred to [facility] today, 09/10/2017. At this point, the patient is stable for transfer. Of note, the patient had a [place] catheter inserted on admission for I and O monitoring. The patient unfortunately likely had a traumatic insertion as he has had persistent hematuria since. The [place] catheter was removed on the day of discharge. He will need to be monitored to ensure that he has not signs of obstruction from clot formation given the hematuria. FOLLOW-UP CONCERNS: The patient is being transferred to [facility] today, 09/11/2017. ACTIVITY LEVEL: As tolerated. DIET: Heart healthy, decaf okay. CONDITION ON DISCHARGE: Stable. Forty minutes were spent discharging this patient. [id number]/[facility] #: [id number] [facility]
[2017-09-11] MEDS: CMCS Pantoprazole TAB (NF) 40 MG TAB PO SCH (05:36)
[2017-09-11] MEDS: Heparin VIAL(*) 5000 UNITS/ML VIAL (FIVE THOUSAND) SUBCUT SCH (05:36)
[2017-09-11] MEDS: Losartan TAB* 25 MG PO SCH (08:03)
[2017-09-11] MEDS: Clopidogrel TAB* 75 MG PO SCH (08:03)
[2017-09-11] MEDS: Magnesium Oxide TAB* 400 MG PO SCH (08:03)
[2017-09-11] MEDS: Carvedilol TAB* 3.125 MG PO SCH (08:03)
[2017-09-11] MEDS: Torsemide TAB* 20 MG PO SCH (08:03)
[2017-09-11] MEDS: Atorvastatin* 10 MG TAB PO SCH (08:03)
[2017-09-11] MEDS: Aspirin Low Dose CHEW TAB* 81 MG PO SCH (08:04)
[2017-09-11] MEDS: Docusate CAP* 100 MG PO SCH (08:04)
[2017-09-11] MEDS: Potassium Chlor TAB* 20 MEQ TAB.ER PO SCH (08:04)
[2017-09-11 08:10] VITALS: BP 105/58
== END 2017-09-11 11:14 | disposition short-term general hospital (02) | DRG 280 ==
LOC: ED 17:00 → MED 20:17 → MEDTELE 09-07 18:43
PROVIDERS: ADMIT Hospitalist; ATTEND Hospitalist
PROC: 0T9B70Z Drainage of Bladder with Drainage Device, Via Natural or Artificial Opening (ICD-10-PCS; principal; 2017-09-06)
DX: I13.0 Hypertensive heart and chronic kidney disease with heart failure and stage 1 through stage 4 chronic kidney disease, or unspecified chronic kidney disease (principal); I21.4 Non-ST elevation (NSTEMI) myocardial infarction; I50.43 Acute on chronic combined systolic (congestive) and diastolic (congestive) heart failure; E11.22 Type 2 diabetes mellitus with diabetic chronic kidney disease; T83.83XA Hemorrhage due to genitourinary prosthetic devices, implants and grafts, initial encounter; E87.8 Other disorders of electrolyte and fluid balance, not elsewhere classified; I35.0 Nonrheumatic aortic (valve) stenosis; R31.9 Hematuria, unspecified; Y73.1 Therapeutic (nonsurgical) and rehabilitative gastroenterology and urology devices associated with adverse incidents; I25.10 Atherosclerotic heart disease of native coronary artery without angina pectoris; E78.5 Hyperlipidemia, unspecified; Z66 Do not resuscitate; Z96.1 Presence of intraocular lens; Y92.239 Unspecified place in hospital as the place of occurrence of the external cause; R40.2412 Glasgow coma scale score 13-15, at arrival to emergency department; N18.3 Chronic kidney disease, stage 3 (moderate); I25.5 Ischemic cardiomyopathy; I71.2 Thoracic aortic aneurysm, without rupture; Z79.82 Long term (current) use of aspirin; Z79.02 Long term (current) use of antithrombotics/antiplatelets; Z79.01 Long term (current) use of anticoagulants; Z95.1 Presence of aortocoronary bypass graft; Z86.73 Personal history of transient ischemic attack (TIA), and cerebral infarction without residual deficits; Z85.828 Personal history of other malignant neoplasm of skin; Z72.89 Other problems related to lifestyle; Z82.49 Family history of ischemic heart disease and other diseases of the circulatory system; Z95.5 Presence of coronary angioplasty implant and graft; Z98.42 Cataract extraction status, left eye; Z98.41 Cataract extraction status, right eye; Z82.3 Family history of stroke
CPT/HCPCS: 36415; 71045; 80048; 80053; 81003; 81015; 82565; 83036; 83735; 83880; 84443; 84484; 84520; 85025; 85610; 85730; 87086; 87502; 93005; 93306; A9270-GY; C8929; J1160; J1644; J1650; J1940; J3475; J3480